=== PATIENT | female | born 1940 | race Caucasian/White ===

== ENCOUNTER → 2020-09-09 | Outpatient (CLI) | payer MEDICARE ==
--- NOTE | 2020-09-10 08:15 | NM ---
EXAMINATION TYPE: NM DatScan Brain SPECT DATE OF EXAM: 09/09/2020 COMPARISON: NONE HISTORY: Tremors TECHNIQUE: 10 drops of Lugol's solution was administered 1 hour prior to injection as a thyroid bloc briana agent. After the administration of 4.65 mCi I-123 Ioflupane DaTscan. Images obtained 3.5 hours post injection. SPECT images of the brain were acquired with axial and coronal reconstructions. FINDINGS: The axial SPECT images demonstrate normal background activity. Accounting for head tilt, t here appears to be slight asymmetrically blunted comma-shaped appearance of the left corpus striatum. IMPRESSION: Slightly blunted striatal activity on the left may indicate early changes of idiopathic P arkinson's disease or Parkinsonian syndrome.
== END | disposition home or self-care (01) ==
LOC: RADNMMAIN 11:00
PROVIDERS: ATTEND Psychiatry & Neurology Neurology
DX: R25.1 Tremor, unspecified (principal)
CPT/HCPCS: 78803; A9584

== ENCOUNTER 2021-02-03 15:06 | Inpatient (IN) | payer MEDICARE ==
[2021-02-03] MEDS ORDERED: SODIUM CHLORIDE 0.9% 500 ML 500 ML IV STA ×2 (15:48→16:45)
[2021-02-03] MEDS ORDERED: KETOROLAC 15 MG/ML 1 ML VIAL IVP STA (15:48)
--- NOTE | 2021-02-03 16:05 | ED ---
Dizziness HPI <Sg Núñez - Last Filed: 02/03/21 17:09> - General Source: patient, EMS Mode of arrival: EMS Limitations: no limitations <Giovanna Shetty - Last Filed: 02/03/21 18:05> - General Chief Complaint: Dizziness Stated Complaint: dizziness Time Seen by Provider: 02/03/21 15:31 - History of Present Illness Initial Comments: Patient is an 80-year-old female with history of early stage Parkinson's, hard of hearing, hypertension, diabetes, presenting to the emergency Department with complaints of dizziness for the past 4 days. She states she's been having these "episodes" that had caused her to fall 4 days ago as well. Patient's brother is here with her now and is helping with history. Brother state that they took her out for lunch and she was trying to get out of the bench and he feels like she did not get her foot out fast enough and she fell backwards, mostly onto her bottom. She did not hit her head or her neck. She denies any pain from that fall. She has been having a headache over the past 3-4 days as well. She has history of right carotid stent. She denies any chest pain or shortness of breath, no abdominal pain, no nausea or vomiting. She denies any dysuria. She states she does feel a little bit nasal congested but feels like she always feels that way. She denies any cough or fevers. She has no further complaints at this time. Upon arrival to the ER, her vitals are stable. (Giovanna Shetty) - Related Data Home Medications Medication Instructions Recorded Confirmed Acetaminophen [Tylenol Extra 1,000 mg PO Q6H PRN 02/03/21 02/03/21 Strength] Aspirin EC [Ecotrin Low Dose] 81 mg PO DAILY 02/03/21 02/03/21 Bismuth Subsalicylate 524 mg PO Q30M PRN MDD 8 DOSES/24 02/03/21 02/03/21 [Pepto-Bismol] HOURS Indapamide 2.5 mg PO DAILY 02/03/21 02/03/21 Metoprolol Succinate [Toprol XL] 100 mg PO DAILY 02/03/21 02/03/21 OLANZapine [ZyPREXA] 20 mg PO HS 02/03/21 02/03/21 Simvastatin [Zocor] 20 mg PO HS 02/03/21 02/03/21 hydrALAZINE HCL [Apresoline] 10 mg PO QID 02/03/21 02/03/21 lisinopriL 40 mg PO BID 02/03/21 02/03/21 metFORMIN HCL ER [Glucophage XR] 500 mg PO BID 02/03/21 02/03/21 rOPINIRole HCL [Requip] 0.5 mg PO TID@0900,1500,2100 02/03/21 02/03/21 Allergies Allergy/AdvReac Type Severity Reaction Status Date / Time TROY Inhibitors Allergy Unknown Verified 02/03/21 17:02 codeine Allergy Unknown Verified 02/03/21 17:02 NSAIDS (Non-Steroidal Allergy Unknown Verified 02/03/21 17:02 Anti-Inflamma sertraline [From Zoloft] Allergy Unknown Verified 02/03/21 17:02 Sulfa (Sulfonamide Allergy Unknown Verified 02/03/21 17:02 Antibiotics) trazodone Allergy Unknown Verified 02/03/21 17:02 Review of Systems ROS Other: All systems not noted in ROS Statement are negative. <Sg Núeñz - Last Filed: 02/03/21 17:09> ROS Other: All systems not noted in ROS Statement are negative. <Giovanna Shetty - Last Filed: 02/03/21 18:05> ROS Statement: Those systems with pertinent positive or pertinent negative responses have been documented in the HPI. Past Medical History Past Medical History: Asthma, Diabetes Mellitus, Hyperlipidemia, Hypertension History of Any Multi-Drug Resistant Organisms: None Reported Past Surgical History: Heart Catheterization With Stent Smoking Status: Never smoker Past Alcohol Use History: None Reported Past Drug Use History: None Reported <Giovanna Shetty - Last Filed: 02/03/21 18:05> General Exam Limitations: no limitations <Giovanna Shetty - Last Filed: 02/03/21 18:05> - General Exam Comments Initial Comments: GENERAL: Patient is well-developed and well-nourished. Patient is nontoxic and in no acute distress, very hard of hearing. HEAD: Atraumatic, normocephalic. EYES: Pupils equal round and reactive to light, extraocular movements intact, sclera anicteric, conjunctiva are normal. Eyelids were unremarkable. ENT: TMs normal, nares patent, oropharynx clear without exudates. Moist mucous membranes. NECK: Normal range of motion, supple without lymphadenopathy or JVD. LUNGS: Unlabored respirations. Breath sounds clear to auscultation bilaterally and equal. No wheezes rales or rhonchi. HEART: Regular rate and rhythm without murmurs, rubs or gallops. ABDOMEN: Soft, nontender, normoactive bowel sounds. No guarding, no rebound. No masses appreciated. : Deferred MUSCULOSKELETAL: Normal extremities with adequate strength and normal range of motion, no pitting or edema. No clubbing or cyanosis. NEUROLOGICAL: Patient is alert and oriented x 3. Motor and sensory are also intact. Cranial nerves II through XII grossly intact. Symmetrical smile. Normal speech. PSYCH: Normal mood, normal affect. SKIN: Warm, Dry, normal turgor, no rashes or lesions noted. (Giovanna Shetty) Course <Sg Núñez - Last Filed: 02/03/21 17:09> Vital Signs 02/03/21 02/03/21 02/03/21 15:08 16:34 17:31 Temperature 97.8 F Pulse Rate 61 61 Pulse Rate [ 67 Geometry Tutor ] Respiratory 18 18 16 Rate Blood Pressure 138/103 171/89 Blood Pressure 172/74 [Right Arm] O2 Sat by Pulse 98 98 98 Oximetry - Reevaluation(s) Reevaluation #1: 02/03/21 17:09 PA supervision: Patient did demonstrate dizziness and presented with the same complaint. She was found to have hyponatremia. Patient be admitted I do agree with the assessment and plan. (Sg Núñez) EKG Findings - EKG Comments: EKG Findings:: Sinus rhythm with first-degree AV block, otherwise normal ECG, no signs of acute process. Ventricular rate 65, WV interval 246, QTC 460. <Giovanna Shetty - Last Filed: 02/03/21 18:05> Medical Decision Making - Lab Data Result diagrams: 02/03/21 16:15 02/03/21 16:15 <Sg Núñez - Last Filed: 02/03/21 17:09> - Lab Data Result diagrams: 02/03/21 16:15 02/03/21 16:15 <Giovanna Shetty - Last Filed: 02/03/21 18:05> - Medical Decision Making Patient is an 80-year-old female with history of Parkinson's, presenting with intermittent dizziness over the past 4 days. She did have a fall 4 days ago as well but did not hit her head. Her exam today as revealing no acute neuro deficits. Her vitals are stable.Patient's CT of the brain showed no acute process, sodium was low at 111, lactic acid is 2.8 troponin was normal. Magnesium is also low at 1.0. Rapid Covid is negative. Patient will be admitted for hyponatremia, ICU admit. Hypertonic saline, magnesium was ordered. Patient accepted by Dr. Gonzalez and spoke with Dr. Llamas. Case discussed with Dr. Núñez. (Giovanna Shetty) - Lab Data Lab Results 02/03/21 02/03/21 02/03/21 Range/Units 16:15 16:15 16:15 WBC 11.2 H (3.8-10.6) k/uL RBC 3.90 (3.80-5.40) m/uL Hgb 11.8 (11.4-16.0) gm/dL Hct 33.6 L (34.0-46.0) % MCV 86.2 (80.0-100.0) fL MCH 30.2 (25.0-35.0) pg MCHC 35.1 (31.0-37.0) g/dL RDW 11.8 (11.5-15.5) % Plt Count 314 (150-450) k/uL MPV 7.2 Neutrophils % 79 % Lymphocytes % 11 % Monocytes % 7 % Eosinophils % 1 % Basophils % 0 % Neutrophils # 8.9 H (1.3-7.7) k/uL Lymphocytes # 1.3 (1.0-4.8) k/uL Monocytes # 0.8 (0-1.0) k/uL Eosinophils # 0.1 (0-0.7) k/uL Basophils # 0.0 (0-0.2) k/uL PT (9.0-12.0) sec INR (<1.2) APTT (22.0-30.0) sec Sodium 111 L* (137-145) mmol/L Potassium 4.7 (3.5-5.1) mmol/L Chloride 77 L (98-107) mmol/L Carbon Dioxide 20 L (22-30) mmol/L Anion Gap 14 mmol/L BUN 16 (7-17) mg/dL Creatinine 0.72 (0.52-1.04) mg/dL Est GFR (CKD-EPI)AfAm >90 (>60 ml/min/1.73 sqM) Est GFR (CKD-EPI)NonAf 80 (>60 ml/min/1.73 sqM) Glucose 125 H (74-99) mg/dL Plasma Lactic Acid Yong 2.8 H* (0.7-2.0) mmol/L Calcium 9.0 (8.4-10.2) mg/dL Magnesium 1.0 L (1.6-2.3) mg/dL Total Bilirubin 0.5 (0.2-1.3) mg/dL AST 32 (14-36) U/L ALT 17 (4-34) U/L Alkaline Phosphatase 71 (38-126) U/L Troponin I (0.000-0.034) ng/mL Total Protein 6.9 (6.3-8.2) g/dL Albumin 4.3 (3.5-5.0) g/dL Coronavirus (PCR) (Not Detectd) 02/03/21 02/03/21 02/03/21 Range/Units 16:15 16:15 16:47 WBC (3.8-10.6) k/uL RBC (3.80-5.40) m/uL Hgb (11.4-16.0) gm/dL Hct (34.0-46.0) % MCV (80.0-100.0) fL MCH (25.0-35.0) pg MCHC (31.0-37.0) g/dL RDW (11.5-15.5) % Plt Count (150-450) k/uL MPV Neutrophils % % Lymphocytes % % Monocytes % % Eosinophils % % Basophils % % Neutrophils # (1.3-7.7) k/uL Lymphocytes # (1.0-4.8) k/uL Monocytes # (0-1.0) k/uL Eosinophils # (0-0.7) k/uL Basophils # (0-0.2) k/uL PT 10.0 (9.0-12.0) sec INR 0.9 (<1.2) APTT 28.4 (22.0-30.0) sec Sodium (137-145) mmol/L Potassium (3.5-5.1) mmol/L Chloride (98-107) mmol/L Carbon Dioxide (22-30) mmol/L Anion Gap mmol/L BUN (7-17) mg/dL Creatinine (0.52-1.04) mg/dL Est GFR (CKD-EPI)AfAm (>60 ml/min/1.73 sqM) Est GFR (CKD-EPI)NonAf (>60 ml/min/1.73 sqM) Glucose (74-99) mg/dL Plasma Lactic Acid Yong (0.7-2.0) mmol/L Calcium (8.4-10.2) mg/dL Magnesium (1.6-2.3) mg/dL Total Bilirubin (0.2-1.3) mg/dL AST (14-36) U/L ALT (4-34) U/L Alkaline Phosphatase (38-126) U/L Troponin I <0.012 (0.000-0.034) ng/mL Total Protein (6.3-8.2) g/dL Albumin (3.5-5.0) g/dL Coronavirus (PCR) Not Detected (Not Detectd) Critical Care Time Critical Care Time: Yes Total Critical Care Time: 37 (Patient presented to ER with dizziness on and off for the last 4 days. Sodium was found to be low at 111, magnesium was 1.0. Patient admitted to the ICU for hyponatremia.) <Giovanna Shetty - Last Filed: 02/03/21 18:05> Disposition <Sg Núñez - Last Filed: 02/03/21 17:09> Decision Date: 02/03/21 Decision Time: 17:30 <Giovanna Shetty - Last Filed: 02/03/21 18:05> Clinical Impression: Hyponatremia, Lactic acidosis, Hypomagnesemia Disposition: ADMITTED IP TO THIS HOSP Condition: Fair Referrals: Fausto Turner MD [Primary Care Provider] - 1-2 days
[2021-02-03 16:26] LABS: Basophils % (A) 0 %; Eosinophils # (A) 0.1 k/uL (0-0.7); Eosinophils % (A) 1 %; HCT 33.6 % (34.0-46.0); HGB 11.8 gm/dL (11.4-16.0); Lymphocytes # (A) 1.3 k/uL (1.0-4.8); Lymphocytes % (A) 11 %; MCH 30.2 pg (25.0-35.0); MCHC 35.1 g/dL (31.0-37.0); MCV 86.2 fL (80.0-100.0); Mean Platelet Volume 7.2; Monocytes # (A) 0.8 k/uL (0-1.0); Monocytes % (A) 7 %; Neutrophils # (A) 8.9 k/uL (1.3-7.7); Neutrophils % (A) 79 %; Platelet Count 314 k/uL (150-450); RDW 11.8 % (11.5-15.5); WBC 11.2 k/uL (3.8-10.6)
[2021-02-03 16:36] LABS: ALT 17 U/L (4-34); AST 32 U/L (14-36); African American GFR (CKD) >90 (>60 ml/min/1.73 sqM); Albumin 4.3 g/dL (3.5-5.0); Alkaline Phosphatase 71 U/L (38-126); Anion Gap 14 mmol/L; Blood Urea Nitrogen 16 mg/dL (7-17); Carbon Dioxide 20 mmol/L (22-30); Chloride 77 mmol/L (98-107); Glucose 125 mg/dL (74-99); INR 0.9 (<1.2); Non-African American GFR(CKD) 80 (>60 ml/min/1.73 sqM); Partial Thromboplastin Time 28.4 sec (22.0-30.0); Potassium 4.7 mmol/L (3.5-5.1); Total Bilirubin 0.5 mg/dL (0.2-1.3); Total Protein 6.9 g/dL (6.3-8.2)
[2021-02-03 16:41] LABS: Sodium 111 mmol/L (137-145)
--- NOTE | 2021-02-03 16:50 | CT ---
EXAMINATION TYPE: CT brain wo con DATE OF EXAM: 02/03/2021 HISTORY: Dizziness and fall today. CT DLP: 1099.4 mGycm. Automated Exposure Control for Dose Reduction was Utilized. TECHNIQUE: CT scan of the head is performed without contrast. COMPARISON: None. FINDINGS: There is no acute intracranial hemorrhage or midline shift identified. There is moderate diffuse ventricular and sulcal prominence consistent with diffuse age-related cerebral atrophy. Ther e is mild to moderate low-attenuation in the periventricular white matter consistent with chronic sma ll vessel ischemic change. Scleral calcification bilateral globes. Prior paranasal sinus surgery with recurrent dependent fluid left sphenoid sinus. IMPRESSION: No acute intracranial hemorrhage or midline shift. There is moderate diffuse cerebral a trophy and mild to moderate chronic small vessel ischemic change noted. Return acute left sphenoid s inus disease noted.
[2021-02-03] MEDS ORDERED: NALOXONE 0.4 MG/ML 1 ML VIAL IV PRN (17:26)
[2021-02-03] MEDS ORDERED: SODIUM CHLORIDE 3%(HYPERTONIC) 500 ML IV SCH ×2 (17:30→23:15)
[2021-02-03] MEDS ORDERED: NA PHOS,M-B/NA PHOS,DI-BA 133 ML ENEMA RECTAL PRN (17:46)
[2021-02-03] MEDS ORDERED: ONDANSETRON 4 MG/2 ML VIAL IVP PRN (17:46)
[2021-02-03] MEDS ORDERED: MELATONIN 3 MG TABLET PO PRN (17:46)
[2021-02-03] MEDS ORDERED: LACTULOSE 20 GM/30 ML CUP PO PRN (17:46)
[2021-02-03] MEDS ORDERED: CALCIUM CARBONATE 500 MG CHEWABLE PO PRN (17:46)
[2021-02-03] MEDS ORDERED: SODIUM CHLORIDE 0.9% 1,000 ML IV SCH (18:00)
--- NOTE | 2021-02-03 18:00 | P.HPIM ---
History of Present Illness H&P Date: 02/03/21 Chief Complaint: Dizziness History of presenting complaint: This is a 80-year-old patient who follows with visiting physicians Dr. Turner. Most of the history is obtained by the brother Andres was also the POA. Patient lives at [facility] at the [facility]. Is able to answer simple questions. Chronic stable medical conditions include asthma, diabetes, hypertension, hyperlipidemia, Parkinson's disease, with delusions and memory impairment. She has been advised to take her get a walker. Patient presents to be increasingly unsteady dizziness. Patient's fallen twice in the last 5 days. Has not passed out. No chest pain or palpitation. Patient was found to have a sodium of 111 in the ER. She denies drinking excessive water. Her appetite has not been good. She did have diarrhea in the last for 5 days. Review of systems: GEN.: Tired EYES: None HEENT: None NECK: None RESPIRATORY: None CARDIOVASCULAR: None GASTROINTESTINAL: No abdominal pain GENITOURINARY: Urinary incontinence MUSCULOSKELETAL: Arthritis LYMPHATICS: None HEMATOLOGICAL: None PSYCHIATRY: Forgetful NEUROLOGICAL: Unsteady on her feet, tremors Past medical history to include: Asthma, diabetes, hyperlipidemia, hypertension, cognitive impairment, Parkinson's, gait dysfunction, CAD with stent, urinary incontinence Social history: Lives at [facility] in the [facility]. Patient's brother Andres is the POA. No smoking or alcohol. Has home help Physical examination: VITAL SIGNS: 97.8, 61, 138/103, 98% room air GENERAL: BMI 26.3, laying in bed, slightly anxious. EYES: Pupils equal. Conjunctiva normal. HEENT: External appearance of nose and ears normal, oral cavity grossly normal. NECK: JVD not raised; masses not palpable. HEART: First and second heart sounds are normal; no edema. LUNGS: Respiratory rate normal; clear to auscultation. ABDOMEN: Soft, nontender, liver spleen not palpable, no masses palpable. MUSCULAR skeletal: Evidence of OA especially in the hands PSYCH: Alert and oriented x3; mood and affect normal. NEUROLOGICAL: [Cranial nerves grossly intact; no facial asymmetry, power and sensation grossly intact, tremors present LYMPHATICS: No lymph nodes palpable in the axilla and neck INVESTIGATIONS, reviewed in the clinical context: White count 11.2 hemoglobin 11.8 platelets 314 sodium 111 potassium 4.7 bicarb 20 BUN 16 creatinine 0.7 to lactic acid 2.8 Troponin I less than 0.012 Coronavirus [PCR]: Not detected EKG tracing personally reviewed by me-normal sinus rhythm Computed tomography scan of the brain: Moderate diffuse cerebral atrophy. Chronic small vessel changes. Assessment and plan: -Severe symptomatic hyponatremia Patient has been having diarrhea for last 5 days. Also patient been taking a diuretic likely the cause of low-sodium. We'll check patient's serum osmolality, urine sodium and urine osmolality. Patient will need to and admitted to ICU with hypertonic saline. 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 Consultation to supply planner to nephrology. Hypertonic saline. Resume home medications. Hold off indapamide. Follow Accu- Cheks. Care was discussed with the patient and the brother the bedside. Questions answered. Given the complexity and severity of patient's condition expect the patient to be in the hospital at least for 2 overnights Past Medical History Past Medical History: Asthma, Diabetes Mellitus, Hyperlipidemia, Hypertension History of Any Multi-Drug Resistant Organisms: None Reported Past Surgical History: Heart Catheterization With Stent Smoking Status: Never smoker Past Alcohol Use History: None Reported Past Drug Use History: None Reported Medications and Allergies Home Medications Medication Instructions Recorded Confirmed Type Acetaminophen [Tylenol Extra 1,000 mg PO Q6H PRN 02/03/21 02/03/21 History Strength] Aspirin EC [Ecotrin Low Dose] 81 mg PO DAILY 02/03/21 02/03/21 History Bismuth Subsalicylate 524 mg PO Q30M PRN MDD 8 DOSES/24 02/03/21 02/03/21 History [Pepto-Bismol] HOURS Indapamide 2.5 mg PO DAILY 02/03/21 02/03/21 History Metoprolol Succinate [Toprol XL] 100 mg PO DAILY 02/03/21 02/03/21 History OLANZapine [ZyPREXA] 20 mg PO HS 02/03/21 02/03/21 History Simvastatin [Zocor] 20 mg PO HS 02/03/21 02/03/21 History hydrALAZINE HCL [Apresoline] 10 mg PO QID 02/03/21 02/03/21 History lisinopriL 40 mg PO BID 02/03/21 02/03/21 History metFORMIN HCL ER [Glucophage XR] 500 mg PO BID 02/03/21 02/03/21 History rOPINIRole HCL [Requip] 0.5 mg PO TID@0900,1500,2100 02/03/21 02/03/21 History Allergies Allergy/AdvReac Type Severity Reaction Status Date / Time TROY Inhibitors Allergy Unknown Verified 02/03/21 17:02 codeine Allergy Unknown Verified 02/03/21 17:02 NSAIDS (Non-Steroidal Allergy Unknown Verified 02/03/21 17:02 Anti-Inflamma sertraline [From Zoloft] Allergy Unknown Verified 02/03/21 17:02 Sulfa (Sulfonamide Allergy Unknown Verified 02/03/21 17:02 Antibiotics) trazodone Allergy Unknown Verified 02/03/21 17:02 Physical Exam Vitals: Vital Signs Temp Pulse Pulse Resp BP BP Pulse Ox 02/03/21 17:31 67 16 172/74 98 02/03/21 16:34 61 18 171/89 98 02/03/21 15:08 97.8 F 61 18 138/103 98 Intake and Output 02/03/21 02/03/21 02/03/21 06:59 14:59 22:59 Other: Weight 63.049 kg Results CBC & Chem 7: 02/03/21 16:15 02/03/21 16:15 Labs: Abnormal Lab Results - Last 24 Hours (Table) 02/03/21 02/03/21 02/03/21 Range/Units 16:15 16:15 16:15 WBC 11.2 H (3.8-10.6) k/uL Hct 33.6 L (34.0-46.0) % Neutrophils # 8.9 H (1.3-7.7) k/uL Sodium 111 L* (137-145) mmol/L Chloride 77 L (98-107) mmol/L Carbon Dioxide 20 L (22-30) mmol/L Glucose 125 H (74-99) mg/dL Plasma Lactic Acid Yong 2.8 H* (0.7-2.0) mmol/L Magnesium 1.0 L (1.6-2.3) mg/dL
[2021-02-03 18:37] LABS: Appearance,Urine Cloudy (Clear); Bacteria,Urine Rare /hpf; Bilirubin,Urine Negative (Negative); Blood,Urine Negative (Negative); Color,Urine Light Yellow; Glucose,Urine (UA) Negative (Negative); Ketones,Urine Negative (Negative); Leukocyte Esterase,Urine Large (Negative); Mucus,Urine Rare /hpf; Nitrite,Urine Negative (Negative); PH, Urine 5.5 (5.0-8.0); Protein,Urine Negative (Negative); RBC,Urine 16 /hpf (0-5); Specific Gravity,Urine 1.007 (1.001-1.035); Squamous Epithelial Cell,Urine 1 /hpf (0-4); Urobilinogen,Urine <2.0 mg/dL (<2.0); WBC,Urine 24 /hpf (0-5)
[2021-02-03] MEDS: hydrALAZINE HCL 10 MG TAB PO SCH ×2 (18:41→23:16)
[2021-02-03] MEDS: ENOXAPARIN 40 MG/0.4 ML SYRINGE SQ SCH (18:42)
[2021-02-03] MEDS: MAGNESIUM SULFATE-D5W PMX 1 GM in DEXTROSE/WATER 1 100ML.BAG IVPB SCH ×2 (18:43→20:51)
[2021-02-03 19:06] LABS: Glucose,Whole Blood 113 mg/dL (75-99)
[2021-02-03] MEDS: INSULIN ASPART (NovoLOG) 100 UNIT/ML VIAL SQ SCH (20:56)
[2021-02-03 20:57] LABS: Glucose,Whole Blood 108 mg/dL (75-99)
[2021-02-03] MEDS: ATORVASTATIN 10 MG TAB PO SCH (21:19)
[2021-02-03] MEDS: lisinopriL 20 MG TAB PO SCH (21:20)
[2021-02-03] MEDS: metFORMIN 500 MG TAB PO SCH (21:20)
[2021-02-03] MEDS: OLANZapine 10 MG TAB PO SCH (21:20)
--- NOTE | 2021-02-03 22:18 | XR ---
EXAMINATION TYPE: XR chest 2V DATE OF EXAM: 02/03/2021 COMPARISON: NONE HISTORY: Dizziness TECHNIQUE: 2 views FINDINGS: There is large hiatal hernia. There is no heart failure nor confluent pneumonic infiltrate. Costophrenic angles are clear. There are chest leads. Thoracic aorta is atheromatous. IMPRESSION: Hiatal hernia. No acute lung disease. No heart failure.
[2021-02-04 04:37] LABS: African American GFR (CKD) >90 (>60 ml/min/1.73 sqM); Anion Gap 8 mmol/L; Blood Urea Nitrogen 14 mg/dL (7-17); Calcium 8.4 mg/dL (8.4-10.2); Carbon Dioxide 21 mmol/L (22-30); Chloride 85 mmol/L (98-107); Glucose 94 mg/dL (74-99); Magnesium 1.9 mg/dL (1.6-2.3); Non-African American GFR(CKD) 86 (>60 ml/min/1.73 sqM); Potassium 3.6 mmol/L (3.5-5.1); Sodium 114 mmol/L (137-145)
[2021-02-04] MEDS: INSULIN ASPART (NovoLOG) 100 UNIT/ML VIAL SQ SCH ×4 (06:19→20:07)
[2021-02-04 06:21] LABS: Glucose,Whole Blood 100 mg/dL (75-99)
[2021-02-04] MEDS: ACETAMINOPHEN TAB 325 MG TAB PO PRN ×2 (06:21→20:06)
[2021-02-04] MEDS: hydrALAZINE HCL 10 MG TAB PO SCH ×2 (06:21→13:19)
[2021-02-04] MEDS ORDERED: Potassium Replacement Protocol 1 EACH MISC MISCELLANE PRN (07:57)
[2021-02-04] MEDS ORDERED: Magnesium Replacement Protocol 1 EACH MISC MISCELLANE PRN (07:58)
[2021-02-04] MEDS ORDERED: POTASSIUM CHLORIDE ER 20 MEQ TAB.ER PO SCH (08:00)
[2021-02-04] MEDS: MAGNESIUM SULFATE-D5W PMX 1 GM in DEXTROSE/WATER 1 100ML.BAG IVPB SCH ×2 (08:23→10:06)
[2021-02-04] MEDS: metFORMIN 500 MG TAB PO SCH ×2 (08:38→20:05)
[2021-02-04] MEDS: ASPIRIN 81 MG PO SCH (08:38)
[2021-02-04] MEDS: lisinopriL 20 MG TAB PO SCH ×2 (08:38→20:05)
[2021-02-04] MEDS: METOPROLOL SUCCINATE (ER) 100 MG TAB.ER.24H PO SCH (08:39)
[2021-02-04 09:13] LABS: Basophils % (A) 0 %; Eosinophils # (A) 0.2 k/uL (0-0.7); Eosinophils % (A) 3 %; HCT 33.3 % (34.0-46.0); HGB 12.3 gm/dL (11.4-16.0); Hyperchromasia Slight; Lymphocytes # (A) 0.9 k/uL (1.0-4.8); Lymphocytes % (A) 15 %; MCH 31.2 pg (25.0-35.0); MCV 84.3 fL (80.0-100.0); Mean Platelet Volume 7.1; Monocytes # (A) 0.6 k/uL (0-1.0); Monocytes % (A) 11 %; Neutrophils # (A) 4.1 k/uL (1.3-7.7); Neutrophils % (A) 68 %; Platelet Count 300 k/uL (150-450); RBC 3.95 m/uL (3.80-5.40); RDW 12.6 % (11.5-15.5)
[2021-02-04 11:41] LABS: Glucose,Whole Blood 147 mg/dL (75-99)
[2021-02-04 12:24] LABS: Glucose,Whole Blood 166 mg/dL (75-99)
--- NOTE | 2021-02-04 12:42 | CONS ---
CONSULTATION REASON FOR CONSULT: Hyponatremia. HISTORY OF PRESENT ILLNESS: The patient is an 80-year-old female who was admitted to the hospital with history of dizziness. She usually follows with visiting physician. She lives at [facility] and she states that she was transferred to the hospital as she did have a history of falls as well. In the ER, patient was noted to have a sodium of 111. Her blood pressure has not been low. The patient was given a fluid bolus of saline and her sodium improved to 115 and therefore the 3% saline was not started. Eventually the sodium dropped down to 110 and at that time 3% saline was started and currently her sodium is up to 119. Off note is that sodium had improved to 115 after initial admission. Therefore, it is a total increase of about 5 point over the last 12 hours. The patient denies any nausea, vomiting or diarrhea. Prior to admission it appears that she may not have been eating well. Medications prior to admission did include thiazide diuretic in the form of indapamide. No significant pain noted at this time. PAST MEDICAL HISTORY: Diabetes, hypertension, hyperlipidemia, Parkinson disease, asthma, coronary artery disease, coronary stent placement, urinary incontinence. PAST SURGICAL HISTORY: Cardiac catheterization, coronary stent placement. SOCIAL HISTORY: Negative for smoking, drug abuse or alcohol abuse. MEDICATIONS: Medications prior to admission included Tylenol, aspirin, ( ), indapamide, Zyprexa, Zocor, hydralazine, metformin, lisinopril, Requip. ALLERGIES: INCLUDE TROY INHIBITORS, NSAIDS, ZOLOFT, SULFA, TRAZODONE. EXAMINATION: Patient is comfortable, awake, not in any acute distress. Blood pressure was 163/75, heart rate 67 per minute, she is afebrile. Examination of the heart S1, S2. Examination of the lungs, bilateral breath sounds are heard. Decreased breath sounds at bases. Abdomen soft, nontender. Exam of lower extremities shows no evidence of edema. SYSTEMS SPECIALIST exam grossly intact. LAB: Show sodium of 119, potassium earlier was 3.6, serum creatinine 0.6, hemoglobin 12.3 g/dL. ASSESSMENT: 1. Hyponatremia, currently euvolemic with a urine osmolality at 231 which is on the lower side. This is most likely associated with decreased oral intake and decreased urinary osmoles. I will discontinue the 3% and we will check another sodium level in four hours. The patient is encouraged to increase her oral intake. Her blood pressure is on the higher side. I will hold off on sodium chloride tabs for now unless the sodium starts to drop again. The patient was also on indapamide which is a thiazide diuretics and I will hold off on that for now. 2. Dizziness most likely associated with the hyponatremia. 3. Type 2 diabetes. 4. Hypertension, blood pressure is on the high side. Continue with the TROY inhibitors and the metoprolol. PLAN: Discontinue 3% saline. Increase protein intake. Maintain some degree of free water restriction. Repeat sodium in 4 hours. Thank you for this consultation. Will continue to follow the patient with you during her hospitalization. MMODL / IJN: [id number] /
[2021-02-04] MEDS ORDERED: SODIUM CHLORIDE TAB 1 GM TAB PO STA (13:56)
--- NOTE | 2021-02-04 14:24 | P.PN ---
Progress Note - Text Progress Note Date: 02/04/21 Chief Complaint: Dizziness History of presenting complaint: This is a 80-year-old patient who follows with visiting physicians Dr. Turner. Most of the history is obtained by the brother Andres was also the POA. Patient lives at [facility] at the [facility]. Is able to answer simple questions. Chronic stable medical conditions include asthma, diabetes, hypertension, hyperlipidemia, Parkinson's disease, with delusions and memory impairment. She has been advised to take her get a walker. Patient presents to be increasingly unsteady dizziness. Patient's fallen twice in the last 5 days. Has not passed out. No chest pain or palpitation. Patient was found to have a sodium of 111 in the ER. She denies drinking excessive water. Her appetite has not been good. She did have diarrhea in the last for 5 days. Admitted with severe hyponatremia. Put in the ICU. Started on hypertonic saline. February 04: ICU: A bit dizzy and tired. Receiving hypertonic saline at 30 mL an hour. No more diarrhea. Eating some. Review of systems: Was done for constitutional, cardiovascular, GI, pulmonary. relevant finding as above Active Medications Acetaminophen (Acetaminophen Tab 325 Mg Tab) 650 mg PO Q4HR PRN PRN Reason: Fever and/or Mild Pain Last Admin: 02/04/21 06:21 Dose: 650 mg Documented by: Alprazolam (Alprazolam 0.25 Mg Tab) 0.25 mg PO Q6HR PRN PRN Reason: Anxiety Aspirin (Aspirin 81 Mg) 81 mg PO DAILY [facility] Last Admin: 02/04/21 08:38 Dose: 81 mg Documented by: Atorvastatin Calcium (Atorvastatin 10 Mg Tab) 10 mg PO [facility] Last Admin: 02/03/21 21:19 Dose: 10 mg Documented by: Calcium Carbonate/Glycine (Calcium Carbonate 500 Mg Chewable) 1,000 mg PO Q4HR PRN PRN Reason: Dyspepsia Enoxaparin Sodium (Enoxaparin 40 Mg/0.4 Ml Syringe) 40 mg SQ [facility] Last Admin: 02/03/21 18:42 Dose: 40 mg Documented by: Hydralazine HCl (Hydralazine Hcl 10 Mg Tab) 10 mg PO Q6HR [facility] Last Admin: 02/04/21 13:19 Dose: 10 mg Documented by: Insulin Aspart (Insulin Aspart (Novolog) 100 Unit/Ml Vial) 0 unit SQ ACHS [facility]; Protocol Last Admin: 02/04/21 11:53 Dose: 1 unit Documented by: Lactulose (Lactulose 20 Gm/30 Ml Cup) 20 gm PO DAILY PRN PRN Reason: Constipation Lisinopril (Lisinopril 20 Mg Tab) 40 mg PO BID [facility] Last Admin: 02/04/21 08:38 Dose: 40 mg Documented by: Melatonin (Melatonin 3 Mg Tablet) 3 mg PO HS PRN PRN Reason: Insomnia Metformin HCl (Metformin 500 Mg Tab) 500 mg PO BID [facility] Last Admin: 02/04/21 08:38 Dose: 500 mg Documented by: Metoprolol Succinate (Metoprolol Succinate (Er) 100 Mg Tab.Er.24h) 100 mg PO DAILY [facility] Last Admin: 02/04/21 08:39 Dose: 100 mg Documented by: Miscellaneous Information (Potassium Replacement Protocol 1 Each Misc) 1 each MISCELLANE DAILY PRN; Protocol PRN Reason: Per Protocol Miscellaneous Information (Magnesium Replacement Protocol 1 Each Misc) 1 each MISCELLANE DAILY PRN; Protocol PRN Reason: Per Protocol Naloxone HCl (Naloxone 0.4 Mg/Ml 1 Ml Vial) 0.2 mg IV Q2M PRN PRN Reason: Opioid Reversal Olanzapine (Olanzapine 10 Mg Tab) 20 mg PO HS [facility] Last Admin: 02/03/21 21:20 Dose: 20 mg Documented by: Ondansetron HCl (Ondansetron 4 Mg/2 Ml Vial) 4 mg IVP Q8HR PRN PRN Reason: Nausea And Vomiting Ropinirole HCl (Ropinirole Hcl 0.25 Mg Tab) 0.5 mg PO TID@0900,1500,2100 [facility] Last Admin: 02/04/21 08:39 Dose: 0.5 mg Documented by: Sodium Biphosphate/Sodium Phosphate (Na Phos,M-B/Na Phos,Di-Ba 133 Ml Enema) 133 ml RECTAL ONCE PRN PRN Reason: Constipation Past medical history to include: Asthma, diabetes, hyperlipidemia, hypertension, cognitive impairment, Parkinson's, gait dysfunction, CAD with stent, urinary incontinence Social history: Lives at [facility] in the memory care center. Patient's brother Andres is the POA. No smoking or alcohol. Has home help Physical examination: VITAL SIGNS: 97.2, 61, 15, 97.52, 97% room air GENERAL: Laying in bed, tired. EYES: Pupils equal. Conjunctiva normal. NECK: JVD not raised; masses not palpable. HEART: First and second heart sounds are normal; no edema. LUNGS: Respiratory rate normal; clear to auscultation. ABDOMEN: Soft, nontender, liver spleen not palpable, no masses palpable. MUSCULAR skeletal: Evidence of OA especially in the hands PSYCH: Alert and oriented x3; mood and affect normal. INVESTIGATIONS, reviewed in the clinical context: January 2013: White count 6 hemoglobin 12.3 platelets 300 sodium 116 White count 11.2 hemoglobin 11.8 platelets 314 sodium 111 potassium 4.7 bicarb 20 BUN 16 creatinine 0.7 to lactic acid 2.8 Troponin I less than 0.012 Coronavirus [PCR]: Not detected EKG tracing personally reviewed by me-normal sinus rhythm Computed tomography scan of the brain: Moderate diffuse cerebral atrophy. Chronic small vessel changes. Chest x-ray film personally reviewed by me-portable/possible hiatal hernia. Oriana vation of right diaphragm. Assessment and plan: -Severe symptomatic hyponatremia: Slow to respond Patient has been having diarrhea for last 5 days. Also patient been taking a diuretic likely the cause of low-sodium. We'll check patient's serum osmolality, urine sodium and urine osmolality. admitted to ICU with hypertonic saline. Had fluid restriction by mouth. -Essential hypertension, blood pressure running on the lower side today. Hydralazine -DC, Isordil 40 mg twice a day, Toprol-XL 100 mg daily, -Idiopathic Parkinson's disease Requip 0.5 mg by mouth 3 times a day -CAD with stent Zocor 20 mg daily at bedtime, Toprol-XL 100 mg by mouth daily -Diabetes mellitus type 2 on oral hypoglycemic Metformin 500 mg twice a day, follow Accu-Cheks -Moderate cognitive impairment from underlying Parkinson disease -Chronic gait dysfunction from underlying Parkinson disease Fall precautions -POA, Andres [brother] Hypertonic saline. Hold hydralazine. Discussed with the patient. Add oral fluid restriction.
--- NOTE | 2021-02-04 14:53 | P.CNPUL ---
History of Present Illness Consult date: 02/04/21 Requesting physician: Lang Gonzalez Reason for consult: other (Critical care management) Chief complaint: Weakness and falls History of present illness: This is a pleasant 80-year-old female patient with a known history of Parkinson's disease, hearing disorder, hypertension, diabetes mellitus, coronary artery disease with previous stent placement. She had recently had episodes of weakness, difficulty standing and falls. She was brought into the emergency room yesterday for the same. She was found to have significant hypo-natremia with a sodium of 114. White count 6.0. Hemoglobin 12.3. Glucose 147. She was placed on 3% normal saline currently at 30 MLS per hour. Nephrology is on the case. She is seen today in the intensive care unit. She is awake and alert. On room air oxygen. Sodium up to 116. She was on indapamide and Zyprexa in the outpatient setting which are currently on hold. Chest x-ray revealed no acute pulmonary process. Computed tomography scan of the brain field no acute intracranial hemorrhage or midline shift. There is noted moderate diffuse cerebral atrophy and mild to moderate chronic small vessel ischemic changes. Review of Systems REVIEW OF SYSTEMS: CONSTITUTIONAL: Positive for generalized weakness, falls. Denies any recent significant weight loss or weight gain. EYES: Denies change in vision. EARS, NOSE, MOUTH, THROAT: Denies headaches, denies sore throat. CARDIOVASCULAR: Denies chest pain, palpitations or syncopal episodes. RESPIRATORY: Denies shortness of breath, cough, congestion or hemoptysis. GASTROINTESTINAL: Denies change in appetite, denies abdominal pain GENITOURINARY: Denies hematuria, denies infections. MUSKULOSKELETAL: Denies pain, denies swelling. INTEGUMENTARY: Denies rash, denies eczema. NEUROLOGICAL: Positive for dizziness, lightheadedness. PSYCHIATRIC: Denies anxiety, denies depression. HEMATOLOGIC/LYMPHATIC: Denies anemia, denies enlarged lymph nodes. Past Medical History Past Medical History: Asthma, Diabetes Mellitus, Hyperlipidemia, Hypertension History of Any Multi-Drug Resistant Organisms: None Reported Past Surgical History: Heart Catheterization With Stent Past Anesthesia/Blood Transfusion Reactions: No Reported Reaction Date of Last Stent Placement:: Pt unsure Past Psychological History: No Psychological Hx Reported Smoking Status: Never smoker Past Alcohol Use History: None Reported Past Drug Use History: None Reported Medications and Allergies Home Medications Medication Instructions Recorded Confirmed Type Acetaminophen [Tylenol Extra 1,000 mg PO Q6H PRN 02/03/21 02/03/21 History Strength] Aspirin EC [Ecotrin Low Dose] 81 mg PO DAILY 02/03/21 02/03/21 History Bismuth Subsalicylate 524 mg PO Q30M PRN MDD 8 24 02/03/21 02/03/21 History [Pepto-Bismol] HOURS Indapamide 2.5 mg PO DAILY 02/03/21 02/03/21 History Metoprolol Succinate [Toprol XL] 100 mg PO DAILY 02/03/21 02/03/21 History OLANZapine [ZyPREXA] 20 mg PO HS 02/03/21 02/03/21 History Simvastatin [Zocor] 20 mg PO HS 02/03/21 02/03/21 History hydrALAZINE HCL [Apresoline] 10 mg PO QID 02/03/21 02/03/21 History lisinopriL 40 mg PO BID 02/03/21 02/03/21 History metFORMIN HCL ER [Glucophage XR] 500 mg PO BID 02/03/21 02/03/21 History rOPINIRole HCL [Requip] 0.5 mg PO TID@0900,1500,2100 02/03/21 02/03/21 History Allergies Allergy/AdvReac Type Severity Reaction Status Date / Time TROY Inhibitors Allergy Unknown Verified 02/03/21 17:02 codeine Allergy Unknown Verified 02/03/21 17:02 NSAIDS (Non-Steroidal Allergy Unknown Verified 02/03/21 17:02 Anti-Inflamma sertraline [From Zoloft] Allergy Unknown Verified 02/03/21 17:02 Sulfa (Sulfonamide Allergy Unknown Verified 02/03/21 17:02 Antibiotics) trazodone Allergy Unknown Verified 02/03/21 17:02 Physical Exam Vitals: Vital Signs Temp Pulse Pulse Resp BP BP Pulse Ox 02/04/21 14:00 61 12 106/52 99 02/04/21 13:00 61 16 104/52 98 02/04/21 12:00 97.2 F L 61 15 97/52 97 02/04/21 11:00 55 L 13 92/75 97 02/04/21 10:00 56 L 16 154/113 97 02/04/21 09:00 67 21 163/75 95 02/04/21 08:00 97.8 F 63 12 147/61 98 02/04/21 07:00 57 L 13 111/72 97 02/04/21 06:00 66 13 125/58 98 02/04/21 05:00 55 L 12 160/67 96 02/04/21 04:00 58 L 12 170/73 96 02/04/21 03:00 58 L 10 L 173/70 97 02/04/21 02:00 61 11 L 134/56 97 02/04/21 01:00 60 12 130/56 96 02/04/21 00:00 98.5 F 58 L 12 142/59 97 02/03/21 23:00 55 L 10 L 162/76 98 02/03/21 22:00 58 L 10 L 150/107 98 02/03/21 21:00 62 11 L 178/78 97 02/03/21 20:00 97.6 F 66 10 L 177/75 97 02/03/21 19:02 97.8 F 70 18 175/75 98 02/03/21 18:49 64 18 179/87 98 02/03/21 17:46 98 02/03/21 17:31 67 16 172/74 98 02/03/21 16:34 61 18 171/89 98 02/03/21 15:08 97.8 F 61 18 138/103 98 Intake and Output 02/03/21 02/04/21 02/04/21 22:59 06:59 14:59 Intake Total 720 240 350 Output Total 0 650 150 Balance 720 -410 200 Intake: IV 490 240 150 Magnesium Sulfate-D5w Pmx 100 1 gm In Dextrose/Water 1 100ml.bag @ 100 mls/hr IVPB Q1H [facility] Rx#: [id number] Sodium Chloride 0.9% 1, 390 000 ml @ 130 mls/hr IV . Q7H42M [facility] Rx#:[id number] Sodium Chloride 3%( 240 150 Hypertonic) 500 ml @ 20 mls/hr IV .Q24H [facility] Rx#: [id number] Intake, IV Titration 230 200 Amount Magnesium Sulfate-D5w Pmx 100 1 gm In Dextrose/Water 1 100ml.bag @ 100 mls/hr IVPB Q1H [facility] Rx#: [id number] Magnesium Sulfate-D5w Pmx 200 1 gm In Dextrose/Water 1 100ml.bag @ 100 mls/hr IVPB Q1H [facility] Rx#: [id number] Sodium Chloride 0.9% 1, 130 000 ml @ 130 mls/hr IV . Q7H42M [facility] Rx#:[id number] Output: Urine 0 650 150 Other: Voiding Method Bedpan Bedpan External Catheter External Catheter # Voids 1 Weight 63.049 kg 67.4 kg GENERAL EXAM: Alert, pleasant, hard of hearing 80-year-old female patient, on room air oxygen, comfortable in no apparent distress. HEAD: Normocephalic. EYES: Normal reaction of pupils, equal size. NOSE: Clear with pink turbinates. THROAT: No erythema or exudates. NECK: No masses, no JVD. CHEST: No chest wall deformity. LUNGS: Equal air entry with no crackles, wheeze, rhonchi or dullness. CVS: S1 and S2 normal with no audible murmur, regular rhythm. ABDOMEN: No hepatosplenomegaly, normal bowel sounds, no guarding or rigidity. SPINE: No scoliosis or deformity SKIN: No rashes CENTRAL NERVOUS SYSTEM: No focal deficits, tone is normal in all 4 extremities. EXTREMITIES: There is no peripheral edema. No clubbing, no cyanosis. Peripheral pulses are intact. Results - Laboratory Findings CBC and BMP: 02/04/21 08:22 02/04/21 12:26 PT/INR, D-dimer PT 10.0 sec (9.0-12.0) 02/03/21 16:15 INR 0.9 (<1.2) 02/03/21 16:15 Abnormal lab findings: Abnormal Labs 02/03/21 02/03/21 02/03/21 16:15 16:15 16:15 WBC 11.2 H Hct 33.6 L Neutrophils # 8.9 H Lymphocytes # Sodium 111 L* Chloride 77 L Carbon Dioxide 20 L Glucose 125 H POC Glucose (mg/dL) Plasma Lactic Acid Yong Magnesium 1.0 L Urine Appearance Cloudy H Ur Leukocyte Esterase Large H Urine RBC 16 H Urine WBC 24 H Urine Bacteria Rare H Urine Mucus Rare H 02/03/21 02/03/21 02/03/21 16:15 17:30 19:03 WBC Hct Neutrophils # Lymphocytes # Sodium 115 L* Chloride Carbon Dioxide Glucose POC Glucose (mg/dL) 113 H Plasma Lactic Acid Yong 2.8 H* Magnesium Urine Appearance Ur Leukocyte Esterase Urine RBC Urine WBC Urine Bacteria Urine Mucus 02/03/21 02/03/21 02/04/21 20:55 21:50 01:50 WBC Hct Neutrophils # Lymphocytes # Sodium 110 L* 112 L* Chloride Carbon Dioxide Glucose POC Glucose (mg/dL) 108 H Plasma Lactic Acid Yong Magnesium Urine Appearance Ur Leukocyte Esterase Urine RBC Urine WBC Urine Bacteria Urine Mucus 02/04/21 02/04/21 02/04/21 03:42 06:19 08:22 WBC Hct Neutrophils # Lymphocytes # Sodium 114 L* 119 L* Chloride 85 L Carbon Dioxide 21 L Glucose POC Glucose (mg/dL) 100 H Plasma Lactic Acid Yong Magnesium Urine Appearance Ur Leukocyte Esterase Urine RBC Urine WBC Urine Bacteria Urine Mucus 02/04/21 02/04/21 02/04/21 08:22 11:40 12:22 WBC Hct 33.3 L Neutrophils # Lymphocytes # 0.9 L Sodium Chloride Carbon Dioxide Glucose POC Glucose (mg/dL) 147 H 166 H Plasma Lactic Acid Yong Magnesium Urine Appearance Ur Leukocyte Esterase Urine RBC Urine WBC Urine Bacteria Urine Mucus 02/04/21 12:26 WBC Hct Neutrophils # Lymphocytes # Sodium 116 L* Chloride Carbon Dioxide Glucose POC Glucose (mg/dL) Plasma Lactic Acid Yong Magnesium Urine Appearance Ur Leukocyte Esterase Urine RBC Urine WBC Urine Bacteria Urine Mucus - Diagnostic Findings Chest x-ray: image reviewed (No acute pulmonary process) Assessment and Plan Assessment: 1 Generalized weakness, dizziness and falls secondary to significant hyponatremia 2 Hyponatremia suspect related to poor oral intake and indapamide in the outpatient setting, currently on hold 3 Coronary artery disease with previous stent placement 4 History of hypertension 5 Diabetes Robert, type II 6 History of depression 7 Parkinson's disease Plan: The patient was seen and evaluated by Dr. Llamas. Chest x-ray,CT brain and labs reviewed Continue 3% normal saline as recommended per nephrology Continue to monitor her sodium levels Continue to monitor her here in the ICU another 24 hours Indapamide remains on hold We will continue to follow and make further recommendations based on her clinical status I, the cosigning physician, performed a history & physical examination of the patient. Lungs sounds are clear. Maintaining good O2 saturations in the 90s on room air. I discussed the assessment and plan of care with my nurse practitioner, Katie Valadez. I attest to the above consultation as dictated by her. Time with Patient: Greater than 30
[2021-02-04 16:36] LABS: Glucose,Whole Blood 119 mg/dL (75-99)
[2021-02-04 18:34] LABS: Potassium 4.6 mmol/L (3.5-5.1)
[2021-02-04 19:58] LABS: Glucose,Whole Blood 100 mg/dL (75-99)
[2021-02-04] MEDS: ATORVASTATIN 10 MG TAB PO SCH (20:05)
[2021-02-04] MEDS: SODIUM CHLORIDE TAB 1 GM TAB PO SCH (20:05)
[2021-02-04] MEDS: ENOXAPARIN 40 MG/0.4 ML SYRINGE SQ SCH (20:06)
[2021-02-04] MEDS: OLANZapine 10 MG TAB PO SCH (20:06)
[2021-02-05 04:27] LABS: African American GFR (CKD) >90 (>60 ml/min/1.73 sqM); Anion Gap 10 mmol/L; Blood Urea Nitrogen 16 mg/dL (7-17); Calcium 9.2 mg/dL (8.4-10.2); Carbon Dioxide 21 mmol/L (22-30); Chloride 88 mmol/L (98-107); Glucose 99 mg/dL (74-99); Non-African American GFR(CKD) 82 (>60 ml/min/1.73 sqM); Potassium 4.7 mmol/L (3.5-5.1)
[2021-02-05] MEDS: ALPRAZolam 0.25 MG TAB PO PRN (04:30)
[2021-02-05 04:32] LABS: Sodium 119 mmol/L (137-145)
[2021-02-05 05:57] LABS: Glucose,Whole Blood 113 mg/dL (75-99)
[2021-02-05] MEDS: INSULIN ASPART (NovoLOG) 100 UNIT/ML VIAL SQ SCH ×4 (05:57→22:35)
[2021-02-05] MEDS: SODIUM CHLORIDE TAB 1 GM TAB PO SCH (09:54)
[2021-02-05] MEDS: metFORMIN 500 MG TAB PO SCH ×2 (09:54→22:36)
[2021-02-05] MEDS: lisinopriL 20 MG TAB PO SCH ×2 (09:55→22:36)
[2021-02-05] MEDS: ASPIRIN 81 MG PO SCH (09:56)
[2021-02-05] MEDS: METOPROLOL SUCCINATE (ER) 100 MG TAB.ER.24H PO SCH (09:56)
[2021-02-05 11:38] LABS: Glucose,Whole Blood 129 mg/dL (75-99)
--- NOTE | 2021-02-05 11:48 | P.PN ---
Subjective Progress Note Date: 02/05/21 Principal diagnosis: Hyponatremia This is a pleasant 80-year-old female patient with a known history of Parkinson's disease, hearing disorder, hypertension, diabetes mellitus, coronary artery disease with previous stent placement. She had recently had episodes of weakness, difficulty standing and falls. She was brought into the emergency room yesterday for the same. She was found to have significant hypo-natremia with a sodium of 114. White count 6.0. Hemoglobin 12.3. Glucose 147. She was placed on 3% normal saline currently at 30 MLS per hour. Nephrology is on the case. She is seen today in the intensive care unit. She is awake and alert. On room air oxygen. Sodium up to 116. She was on indapamide and Zyprexa in the outpatient setting which are currently on hold. Chest x-ray revealed no acute pulmonary process. Computed tomography scan of the brain field no acute intracranial hemorrhage or midline shift. There is noted moderate diffuse cerebral atrophy and mild to moderate chronic small vessel ischemic changes. The patient is seen today 02/05/2021 in follow-up on the intensive care unit. She is currently sitting up in bed. More awake and alert today. She is maintaining good O2 saturations in the 90s on room air. No IV fluids. Sodium 121. Potassium 4.7. Chloride 88. Bicarb 21. Creatinine 0.71 blood glucose 129. She remains on Lovenox for DVT prophylaxis. Appetite good. Objective - Vital Signs Vital signs: Vital Signs Temp 97.6 F 02/05/21 04:00 Pulse 73 02/05/21 07:00 Resp 10 L 02/05/21 07:00 BP 192/87 02/05/21 07:00 Pulse Ox 97 02/05/21 07:00 Intake & Output 02/04/21 02/05/21 02/05/21 18:59 06:59 18:59 Intake Total 350 250 Output Total 400 550 0 Balance -50 -300 0 Weight 68.4 kg Intake: IV 150 Sodium Chloride 3%( 150 Hypertonic) 500 ml @ 20 mls/hr IV .Q24H [facility] Rx#: [id number] Intake, IV Titration 200 Amount Magnesium Sulfate-D5w Pmx 200 1 gm In Dextrose/Water 1 100ml.bag @ 100 mls/hr IVPB Q1H [facility] Rx#: [id number] Oral 250 Output: Urine 400 550 0 Other: Voiding Method External Catheter External Catheter # Voids 0 0 - Exam GENERAL EXAM: Alert, pleasant, hard of hearing 80-year-old female patient, on room air oxygen, comfortable in no apparent distress. HEAD: Normocephalic. EYES: Normal reaction of pupils, equal size. NOSE: Clear with pink turbinates. THROAT: No erythema or exudates. NECK: No masses, no JVD. CHEST: No chest wall deformity. LUNGS: Equal air entry with no crackles, wheeze, rhonchi or dullness. CVS: S1 and S2 normal with no audible murmur, regular rhythm. ABDOMEN: No hepatosplenomegaly, normal bowel sounds, no guarding or rigidity. SPINE: No scoliosis or deformity SKIN: No rashes CENTRAL NERVOUS SYSTEM: No focal deficits, tone is normal in all 4 extremities. EXTREMITIES: There is no peripheral edema. No clubbing, no cyanosis. Peripheral pulses are intact. - Labs CBC & Chem 7: 02/04/21 08:22 02/05/21 07:49 Labs: Abnormal Lab Results - Last 24 Hours (Table) 02/04/21 02/04/21 02/04/21 Range/Units 12:22 12:26 12:26 Sodium 116 L* (137-145) mmol/L Chloride (98-107) mmol/L Carbon Dioxide (22-30) mmol/L POC Glucose (mg/dL) 166 H (75-99) mg/dL Osmolality 254 L (280-301) mosm/kg 02/04/21 02/04/21 02/04/21 Range/Units 16:34 18:09 19:57 Sodium 117 L* (137-145) mmol/L Chloride (98-107) mmol/L Carbon Dioxide (22-30) mmol/L POC Glucose (mg/dL) 119 H 100 H (75-99) mg/dL Osmolality (280-301) mosm/kg 02/04/21 02/05/21 02/05/21 Range/Units 23:36 03:42 05:55 Sodium 117 L* 119 L* (137-145) mmol/L Chloride 88 L (98-107) mmol/L Carbon Dioxide 21 L (22-30) mmol/L POC Glucose (mg/dL) 113 H (75-99) mg/dL Osmolality 254 L (280-301) mosm/kg 02/05/21 02/05/21 Range/Units 07:49 11:36 Sodium 121 L (137-145) mmol/L Chloride (98-107) mmol/L Carbon Dioxide (22-30) mmol/L POC Glucose (mg/dL) 129 H (75-99) mg/dL Osmolality (280-301) mosm/kg Microbiology - Last 24 Hours (Table) 02/03/21 16:15 Urine Culture - Preliminary Urine,Clean Catch Assessment and Plan Assessment: 1 Generalized weakness, dizziness and falls secondary to significant hyponatremia, improved currently 121. 2 Hyponatremia suspect related to poor oral intake and indapamide in the outpatient setting, currently on hold 3 Coronary artery disease with previous stent placement 4 History of hypertension 5 Diabetes Robert, type II 6 History of depression 7 Parkinson's disease Plan: The patient was seen and evaluated by Dr. Llamas. Cleared for transfer out of the ICU Continue to monitor her sodium levels Indapamide remains on hold We will continue to follow I, the cosigning physician, performed a history & physical examination of the patient. Lungs sounds are clear. Maintaining good O2 saturations in the 90s on room air. I discussed the assessment and plan of care with my nurse practitioner, Katie Valadez. I attest to the above note as dictated by her.
--- NOTE | 2021-02-05 15:52 | P.PN ---
Progress Note - Text Progress Note Date: 02/05/21 Chief Complaint: Dizziness History of presenting complaint: This is a 80-year-old patient who follows with visiting physicians Dr. Turner. Most of the history is obtained by the brother Andres was also the POA. Patient lives at [facility] at the [facility]. Is able to answer simple questions. Chronic stable medical conditions include asthma, diabetes, hypertension, hyperlipidemia, Parkinson's disease, with delusions and memory impairment. She has been advised to take her get a walker. Patient presents to be increasingly unsteady dizziness. Patient's fallen twice in the last 5 days. Has not passed out. No chest pain or palpitation. Patient was found to have a sodium of 111 in the ER. She denies drinking excessive water. Her appetite has not been good. She did have diarrhea in the last for 5 days. Admitted with severe hyponatremia. Put in the ICU. Started on hypertonic saline. February 04: ICU: A bit dizzy and tired. Receiving hypertonic saline at 30 mL an hour. No more diarrhea. Eating some. February 05: Moved out of the ICU. Sodium is, 122. On fluid restriction. Limited food intake. Not very hungry. Add sodium chloride tablets. Serum osmolality is low. Review of systems: Was done for constitutional, cardiovascular, GI, pulmonary. relevant finding as above Active Medications Acetaminophen (Acetaminophen Tab 325 Mg Tab) 650 mg PO Q4HR PRN PRN Reason: Fever and/or Mild Pain Last Admin: 02/04/21 20:06 Dose: 650 mg Documented by: Alprazolam (Alprazolam 0.25 Mg Tab) 0.25 mg PO Q6HR PRN PRN Reason: Anxiety Last Admin: 02/05/21 04:30 Dose: 0.25 mg Documented by: Aspirin (Aspirin 81 Mg) 81 mg PO DAILY [facility] Last Admin: 02/05/21 09:56 Dose: 81 mg Documented by: Atorvastatin Calcium (Atorvastatin 10 Mg Tab) 10 mg PO HS [facility] Last Admin: 02/04/21 20:05 Dose: 10 mg Documented by: Calcium Carbonate/Glycine (Calcium Carbonate 500 Mg Chewable) 1,000 mg PO Q4HR PRN PRN Reason: Dyspepsia Enoxaparin Sodium (Enoxaparin 40 Mg/0.4 Ml Syringe) 40 mg SQ HS [facility] Last Admin: 02/04/21 20:06 Dose: 40 mg Documented by: Insulin Aspart (Insulin Aspart (Novolog) 100 Unit/Ml Vial) 0 unit SQ ACHS [facility]; Protocol Last Admin: 02/05/21 11:48 Dose: Not Given Documented by: Lactulose (Lactulose 20 Gm/30 Ml Cup) 20 gm PO DAILY PRN PRN Reason: Constipation Lisinopril (Lisinopril 20 Mg Tab) 40 mg PO BID [facility] Last Admin: 02/05/21 09:55 Dose: 40 mg Documented by: Melatonin (Melatonin 3 Mg Tablet) 3 mg PO HS PRN PRN Reason: Insomnia Last Admin: 02/04/21 20:05 Dose: 3 mg Documented by: Metformin HCl (Metformin 500 Mg Tab) 500 mg PO BID [facility] Last Admin: 02/05/21 09:54 Dose: 500 mg Documented by: Metoprolol Succinate (Metoprolol Succinate (Er) 100 Mg Tab.Er.24h) 100 mg PO DAILY [facility] Last Admin: 02/05/21 09:56 Dose: 100 mg Documented by: Miscellaneous Information (Potassium Replacement Protocol 1 Each Misc) 1 each MISCELLANE DAILY PRN; Protocol PRN Reason: Per Protocol Miscellaneous Information (Magnesium Replacement Protocol 1 Each Misc) 1 each MISCELLANE DAILY PRN; Protocol PRN Reason: Per Protocol Naloxone HCl (Naloxone 0.4 Mg/Ml 1 Ml Vial) 0.2 mg IV Q2M PRN PRN Reason: Opioid Reversal Olanzapine (Olanzapine 10 Mg Tab) 20 mg PO HS [facility] Last Admin: 02/04/21 20:06 Dose: 20 mg Documented by: Ondansetron HCl (Ondansetron 4 Mg/2 Ml Vial) 4 mg IVP Q8HR PRN PRN Reason: Nausea And Vomiting Ropinirole HCl (Ropinirole Hcl 0.25 Mg Tab) 0.5 mg PO TID@0900,1500,2100 [facility] Last Admin: 02/05/21 09:56 Dose: 0.5 mg Documented by: Sodium Biphosphate/Sodium Phosphate (Na Phos,M-B/Na Phos,Di-Ba 133 Ml Enema) 133 ml RECTAL ONCE PRN PRN Reason: Constipation Sodium Chloride (Sodium Chloride Tab 1 Gm Tab) 1 gm PO BID [facility] Last Admin: 02/05/21 09:54 Dose: 1 gm Documented by: Sodium Chloride (Sodium Chloride Tab 1 Gm Tab) 2 gm PO TID [facility] Past medical history to include: Asthma, diabetes, hyperlipidemia, hypertension, cognitive impairment, Parkinson's, gait dysfunction, CAD with stent, urinary incontinence Social history: Lives at [facility] in the [facility] [place]. Patient's brother Andres is the POA. No smoking or alcohol. Has home help Physical examination: VITAL SIGNS: 97.9, 68, 18, 180/77, 98% room air GENERAL: Reclining in the recliner, awake 1 tired EYES: Pupils equal. Conjunctiva normal. NECK: JVD not raised; masses not palpable. HEART: First and second heart sounds are normal; no edema. LUNGS: Respiratory rate normal; clear to auscultation. ABDOMEN: Soft, nontender, liver spleen not palpable, no masses palpable. MUSCULAR skeletal: Evidence of OA especially in the hands PSYCH: Alert and oriented x3; mood and affect normal. INVESTIGATIONS, reviewed in the clinical context: February 05: Sodium 122 February 04: White count 6 hemoglobin 12.3 platelets 300 sodium 116. Serum osmolality 254 White count 11.2 hemoglobin 11.8 platelets 314 sodium 111 potassium 4.7 bicarb 20 BUN 16 creatinine 0.7 to lactic acid 2.8 Troponin I less than 0.012 Coronavirus [PCR]: Not detected EKG tracing personally reviewed by me-normal sinus rhythm Computed tomography scan of the brain: Moderate diffuse cerebral atrophy. Chronic small vessel changes. Chest x-ray film personally reviewed by me-portable/possible hiatal hernia. Elevation of right diaphragm. Assessment and plan: -Severe symptomatic hypoosmolar, hyponatremia: Slow to respond Patient has been having diarrhea for last 5 days. Also patient been taking a diuretic likely the cause of low-sodium. We'll check patient's serum osmolality, urine sodium and urine osmolality. Initially admitted to ICU with hypertonic saline. Fluid restriction added. Add sodium chloride 2 g 3 times a day tablets -Essential hypertension: Uncontrolled, Hydralazine -resume, Isordil 40 mg twice a day, Toprol-XL 100 mg daily, -Idiopathic Parkinson's disease Requip 0.5 mg by mouth 3 times a day -CAD with stent Zocor 20 mg daily at bedtime, Toprol-XL 100 mg by mouth daily -Diabetes mellitus type 2 on oral hypoglycemic Metformin 500 mg twice a day, follow Accu-Cheks -Moderate cognitive impairment from underlying Parkinson disease -Chronic gait dysfunction from underlying Parkinson disease Fall precautions -JUSTINAndres Duarte [brother] Resume hydralazine. Fluid restriction. Add sodium chloride 2 g 3 times a day. Increase oral intake. Follow BMP.
[2021-02-05] MEDS ORDERED: hydrALAZINE HCL 10 MG TAB PO SCH (16:00)
[2021-02-05] MEDS ORDERED: SODIUM CHLORIDE TAB 1 GM TAB PO SCH (16:00)
[2021-02-05 17:33] LABS: Glucose,Whole Blood 104 mg/dL (75-99)
--- NOTE | 2021-02-05 20:17 | PN ---
PROGRESS NOTE Patient is seen for followup for hyponatremia, mostly associated with decreased oral intake and low urinary osmoles. The patient was placed on 3% saline. Her sodium improved from 111 on admission to 119, following which the 3% saline was discontinued. Patient is maintained on fluid restriction. Urine osmolality was 231. The patient's blood pressure has been on the higher side, and therefore she received just a couple of doses of sodium chloride tabs. Sodium improved from 121 to 122. The patient will be transferred out of the ICU. Overall she states she is feeling better. PHYSICAL EXAMINATION: On examination, blood pressure was 172/74, heart rate 68 per minute. Patient is afebrile. EXAMINATION OF THE HEART: S1 and S2. EXAMINATION OF LUNGS: Decreased breath sounds at the bases. ABDOMEN: Soft, nontender. LOWER EXTREMITIES: Examination of lower extremities shows no evidence of edema. INDUSTRIAL/ORGANIZATIONAL PSYCHOLOGIST EXAM: Grossly intact. LABS: Labs show sodium 122 today. ASSESSMENT: 1. Hyponatremia, euvolemic, associated with [id number] syndrome with low urine osmoles, status post 3% saline; received a couple of doses of sodium chloride tabs with improvement in serum sodium. However, her blood pressure is quite elevated. Therefore I will decrease the sodium chloride tabs and continue with fluid restriction. Pt was on indapamide, on hold now. 2. Hypertension, probably exacerbated with the sodium chloride tablets. Continue with Zestril and increase hydralazine. Decrease sodium chloride load. 3. Dizziness, mostly associated with hyponatremia, currently improved. PLAN: Increase hydralazine. Continue with fluid restriction. Decrease sodium chloride tabs. Given the significant hypertension, I will give the patient a dose of tolvaptan today and we will repeat labs in a.m. MMODL / IJN: [id number] / [facility] CENTERZabrina
[2021-02-05 21:05] LABS: Glucose,Whole Blood 120 mg/dL (75-99)
[2021-02-05] MEDS: ENOXAPARIN 40 MG/0.4 ML SYRINGE SQ SCH (22:34)
[2021-02-05] MEDS: ATORVASTATIN 10 MG TAB PO SCH (22:35)
[2021-02-05] MEDS: OLANZapine 10 MG TAB PO SCH (22:36)
[2021-02-05] MEDS: hydrALAZINE HCL 25 MG TAB PO SCH (22:36)
[2021-02-06] MEDS: ALPRAZolam 0.25 MG TAB PO PRN (00:54)
[2021-02-06 07:47] LABS: Glucose,Whole Blood 112 mg/dL (75-99)
[2021-02-06] MEDS: INSULIN ASPART (NovoLOG) 100 UNIT/ML VIAL SQ SCH ×4 (07:53→22:12)
[2021-02-06] MEDS: METOPROLOL SUCCINATE (ER) 100 MG TAB.ER.24H PO SCH (09:29)
[2021-02-06] MEDS: ASPIRIN 81 MG PO SCH (09:29)
[2021-02-06] MEDS: hydrALAZINE HCL 25 MG TAB PO SCH ×3 (09:29→22:11)
[2021-02-06] MEDS: lisinopriL 20 MG TAB PO SCH ×2 (09:29→22:11)
[2021-02-06] MEDS: SODIUM CHLORIDE TAB 1 GM TAB PO SCH (09:29)
[2021-02-06] MEDS: metFORMIN 500 MG TAB PO SCH ×2 (09:30→22:11)
[2021-02-06 11:01] LABS: ALT 19 U/L (4-34); AST 28 U/L (14-36); African American GFR (CKD) 83 (>60 ml/min/1.73 sqM); Albumin/Globulin Ratio 1.6; Alkaline Phosphatase 71 U/L (38-126); Anion Gap 9 mmol/L; Blood Urea Nitrogen 24 mg/dL (7-17); Calcium 9.4 mg/dL (8.4-10.2); Carbon Dioxide 25 mmol/L (22-30); Chloride 90 mmol/L (98-107); Globulin 2.5 g/dL; Glucose 94 mg/dL (74-99); Non-African American GFR(CKD) 72 (>60 ml/min/1.73 sqM); Potassium 4.8 mmol/L (3.5-5.1); Sodium 124 mmol/L (137-145); Total Bilirubin 0.4 mg/dL (0.2-1.3); Total Protein 6.5 g/dL (6.3-8.2)
[2021-02-06] MEDS: ACETAMINOPHEN TAB 325 MG TAB PO PRN (11:14)
[2021-02-06 11:19] LABS: Basophils # (A) 0.1 k/uL (0-0.2); Basophils % (A) 1 %; Eosinophils # (A) 0.2 k/uL (0-0.7); Eosinophils % (A) 2 %; HCT 32.3 % (34.0-46.0); HGB 11.4 gm/dL (11.4-16.0); Lymphocytes # (A) 1.7 k/uL (1.0-4.8); Lymphocytes % (A) 18 %; MCH 30.9 pg (25.0-35.0); MCHC 35.3 g/dL (31.0-37.0); MCV 87.4 fL (80.0-100.0); Mean Platelet Volume 7.5; Monocytes # (A) 0.7 k/uL (0-1.0); Monocytes % (A) 8 %; Neutrophils # (A) 6.5 k/uL (1.3-7.7); Neutrophils % (A) 69 %; Platelet Count 352 k/uL (150-450); RBC 3.69 m/uL (3.80-5.40); RDW 13.1 % (11.5-15.5); WBC 9.4 k/uL (3.8-10.6)
[2021-02-06 12:08] LABS: Glucose,Whole Blood 201 mg/dL (75-99)
--- NOTE | 2021-02-06 13:02 | P.PN ---
Subjective Progress Note Date: 02/06/21 Principal diagnosis: This is an 80-year-old female seen in consultation because of tea and toast syndrome with hyponatremia. Sodium is slowly improving. She continues to have low appetite. No nausea vomiting no abdominal pain no chest pain shortness of breath headache. No fever chills. She is profoundly weak. She is known with diabetes hypertension asthma Parkinson's and memory impairment Objective - Vital Signs Vital signs: Vital Signs Temp 98.1 F 02/06/21 05:50 Pulse 78 02/06/21 05:50 Resp 20 02/06/21 05:50 BP 176/79 02/06/21 05:50 Pulse Ox 99 02/06/21 05:50 Intake & Output 02/05/21 02/06/21 02/06/21 18:59 06:59 18:59 Intake Total 680 50 Output Total 650 0 Balance 30 50 Intake: Oral 680 50 Output: Urine 650 0 Other: Voiding Method Diaper Diaper External Catheter # Voids 2 550 Examination she is awake alert. HEENT exam no JVP neck is supple no facial asymmetry Heart unremarkable for any murmur rub gallop Lungs are clear to auscultation good air entry bilaterally Abdomen soft nontender Extremity exam was no edema. Neurologically awake and alert. Has poor memory - Labs CBC & Chem 7: 02/06/21 05:45 02/06/21 05:45 Labs: Abnormal Lab Results - Last 24 Hours (Table) 02/05/21 02/05/21 02/05/21 Range/Units 17:31 19:28 20:51 RBC (3.80-5.40) m/uL Hct (34.0-46.0) % Sodium 122 L (137-145) mmol/L Chloride (98-107) mmol/L BUN (7-17) mg/dL POC Glucose (mg/dL) 104 H 120 H (75-99) mg/dL 02/06/21 02/06/21 02/06/21 Range/Units 05:45 05:45 07:36 RBC 3.69 L (3.80-5.40) m/uL Hct 32.3 L (34.0-46.0) % Sodium 124 L (137-145) mmol/L Chloride 90 L (98-107) mmol/L BUN 24 H (7-17) mg/dL POC Glucose (mg/dL) 112 H (75-99) mg/dL 02/06/21 Range/Units 12:01 RBC (3.80-5.40) m/uL Hct (34.0-46.0) % Sodium (137-145) mmol/L Chloride (98-107) mmol/L BUN (7-17) mg/dL POC Glucose (mg/dL) 201 H (75-99) mg/dL Microbiology - Last 24 Hours (Table) 02/03/21 16:15 Urine Culture - Preliminary Urine,Clean Catch Gram Neg Bacilli Assessment and Plan Assessment: Impression 1. Hyponatremia secondary to tea and toast syndrome improving slowly and appropriately. Sodium improved from 111-124 over the last 3 days 2. History of poor memory dementia. 3. History of diabetes mellitus, asthma, hypertension, Parkinson's disease. Recommendation Continue present management, she is on sodium chloride tablets. She has poor appetite and protein intake is low. Suggest give her high protein supplements
--- NOTE | 2021-02-06 17:36 | PN ---
PROGRESS NOTE DATE OF SERVICE: 02/06/2021 This 80-year-old woman who was admitted with dizziness as well as severe symptomatic hypoosmolar hyponatremia is being closely monitored at this time. The patient has IV fluids. Sodium is currently at 124. The patient continues to be confused. Blood sugar is also elevated. Past medical history reviewed. REVIEW OF SYSTEMS: CARDIOVASCULAR SYSTEM: No angina. RESPIRATION: As mentioned earlier. GI: As mentioned earlier. : As mentioned earlier. NERVOUS SYSTEM: Generally weak. CURRENT MEDICATIONS: Reviewed. They include Tylenol, Xanax, aspirin, Lipitor, TUMS. Doses and rest of the medications noted. PHYSICAL EXAMINATION: Patient alert oriented x2. Pulse 70, blood pressure 143/74, respiration 17, temperature 97.6, pulse ox 98% on room air. HEENT: Conjunctivae normal. NECK: No jugular venous distention. CARDIOVASCULAR: S1, S2 muffled. RESPIRATION: Breath sounds diminished at the bases. A few scattered rhonchi and crackles. ABDOMEN: Soft, nontender. LEGS: No edema. No swelling. NERVOUS SYSTEM: Diffusely weak. LABS: WBC 9.1, hemoglobin 11.4. Sodium 124. Other labs are reviewed. ASSESSMENT: 1. Severe symptomatic hypoosmolar hyponatremia, possibly secondary to dehydration. 2. Hypertension. 3. Idiopathic Parkinson's. 4. Gait dysfunction. 5. Diabetes mellitus, type 2. 6. Chronic gait dysfunction. 7. Elevated random glucose. 8. History of coronary artery disease, stent. RECOMMENDATIONS AND DISCUSSION: I recommend to continue current medications, continue with symptomatic treatment. Repeat labs. Closely follow with Nephrology. Guarded prognosis because of multiple complex medical issues. Further recommendations to follow. MMODL / IJN: [id number] /
[2021-02-06 17:42] LABS: Glucose,Whole Blood 85 mg/dL (75-99)
[2021-02-06 20:39] LABS: Glucose,Whole Blood 102 mg/dL (75-99)
[2021-02-06] MEDS: ENOXAPARIN 40 MG/0.4 ML SYRINGE SQ SCH (22:09)
[2021-02-06] MEDS: OLANZapine 10 MG TAB PO SCH (22:11)
[2021-02-06] MEDS: ATORVASTATIN 10 MG TAB PO SCH (22:12)
[2021-02-07 07:11] LABS: Basophils % (A) 1 %; Eosinophils # (A) 0.3 k/uL (0-0.7); Eosinophils % (A) 4 %; HCT 29.8 % (34.0-46.0); Lymphocytes # (A) 1.5 k/uL (1.0-4.8); Lymphocytes % (A) 19 %; MCH 30.4 pg (25.0-35.0); MCHC 33.7 g/dL (31.0-37.0); MCV 90.3 fL (80.0-100.0); Mean Platelet Volume 6.5; Monocytes # (A) 0.6 k/uL (0-1.0); Monocytes % (A) 7 %; Neutrophils # (A) 5.2 k/uL (1.3-7.7); Neutrophils % (A) 67 %; Platelet Count 287 k/uL (150-450); RDW 12.6 % (11.5-15.5); WBC 7.9 k/uL (3.8-10.6)
[2021-02-07 07:39] LABS: Glucose,Whole Blood 109 mg/dL (75-99)
[2021-02-07 07:51] LABS: African American GFR (CKD) 63 (>60 ml/min/1.73 sqM); Anion Gap 7 mmol/L; Blood Urea Nitrogen 24 mg/dL (7-17); Calcium 9.3 mg/dL (8.4-10.2); Carbon Dioxide 25 mmol/L (22-30); Chloride 94 mmol/L (98-107); Glucose 100 mg/dL (74-99); Non-African American GFR(CKD) 55 (>60 ml/min/1.73 sqM); Potassium 4.9 mmol/L (3.5-5.1); Sodium 126 mmol/L (137-145)
[2021-02-07] MEDS: INSULIN ASPART (NovoLOG) 100 UNIT/ML VIAL SQ SCH ×4 (08:32→22:40)
[2021-02-07] MEDS: hydrALAZINE HCL 25 MG TAB PO SCH ×3 (08:33→21:29)
[2021-02-07] MEDS: lisinopriL 20 MG TAB PO SCH ×2 (08:33→21:28)
[2021-02-07] MEDS: ASPIRIN 81 MG PO SCH (08:33)
[2021-02-07] MEDS: metFORMIN 500 MG TAB PO SCH ×2 (08:33→21:28)
[2021-02-07] MEDS: METOPROLOL SUCCINATE (ER) 100 MG TAB.ER.24H PO SCH (08:35)
[2021-02-07] MEDS: SODIUM CHLORIDE TAB 1 GM TAB PO SCH (08:35)
--- NOTE | 2021-02-07 11:11 | P.PN ---
Subjective Progress Note Date: 02/07/21 Principal diagnosis: This is an 80-year-old female seen in consultation because of tea and toast syndrome with hyponatremia. Sodium is slowly improving. She continues to have low appetite looks depressed and according to nursing staff she is eating fair amounts of her meals. No nausea vomiting no abdominal pain no chest pain shortness of breath headache. No fever chills. She is profoundly weak. She is known with diabetes hypertension asthma Parkinson's and memory impairment Objective - Vital Signs Vital signs: Vital Signs Temp 98.1 F 02/07/21 05:05 Pulse 95 02/07/21 05:05 Resp 20 02/07/21 05:05 BP 176/94 02/07/21 05:05 Pulse Ox 97 02/07/21 05:05 Intake & Output 02/06/21 02/07/21 02/07/21 18:59 06:59 18:59 Intake Total 830 340 Balance 830 340 Intake: Oral 830 340 Other: Voiding Method External Catheter Toilet Diaper Diaper Incontinent External Catheter # Voids 3 3 # Bowel Movements 1 1 On examination she is awake alert. Looks depressed HEENT exam no JVP neck is supple no facial asymmetry Lungs are clear to percussion good air entry bilaterally Heart sounds unremarkable no murmur rub gallop Abdomen soft nontender Extremity exam was no edema Neurologically awake alert oriented. Generalized weakness - Labs CBC & Chem 7: 02/07/21 06:29 02/07/21 06:29 Labs: Abnormal Lab Results - Last 24 Hours (Table) 02/06/21 02/06/21 02/06/21 Range/Units 05:45 12:01 20:26 RBC 3.69 L (3.80-5.40) m/uL Hgb (11.4-16.0) gm/dL Hct 32.3 L (34.0-46.0) % Sodium (137-145) mmol/L Chloride (98-107) mmol/L BUN (7-17) mg/dL Glucose (74-99) mg/dL POC Glucose (mg/dL) 201 H 102 H (75-99) mg/dL 02/07/21 02/07/21 02/07/21 Range/Units 06:29 06:29 07:32 RBC 3.30 L (3.80-5.40) m/uL Hgb 10.0 L (11.4-16.0) gm/dL Hct 29.8 L (34.0-46.0) % Sodium 126 L (137-145) mmol/L Chloride 94 L (98-107) mmol/L BUN 24 H (7-17) mg/dL Glucose 100 H (74-99) mg/dL POC Glucose (mg/dL) 109 H (75-99) mg/dL Microbiology - Last 24 Hours (Table) 02/03/21 16:15 Urine Culture - Final Urine,Clean Catch Escherichia coli Pseudomonas aeruginosa Assessment and Plan Assessment: Impression 1. Hyponatremia secondary to tea and toast syndrome improving slowly and appropriately. Sodium improved from 111-126 over the last 4 days 2. History of poor memory, dementia. 3. History of diabetes mellitus, asthma, hypertension, Parkinson's disease. Recommendation Continue present management, she is on sodium chloride tablets. She has poor appetite and protein intake is low. If she does not eat give her high protein supplements
[2021-02-07 11:31] LABS: Glucose,Whole Blood 160 mg/dL (75-99)
[2021-02-07] MEDS: ACETAMINOPHEN TAB 325 MG TAB PO PRN (12:50)
[2021-02-07 17:30] LABS: Glucose,Whole Blood 94 mg/dL (75-99)
--- NOTE | 2021-02-07 18:47 | PN ---
PROGRESS NOTE DATE OF SERVICE: 02/07/2021 This 80-year-old woman who was admitted with dizziness and as well as severe symptomatic hyponatremia is being closely monitored. No chest pain. No palpitations. No fever. Sodium today is 126. Nephrology following the patient closely. PHYSICAL EXAMINATION: Alert and oriented x3. Pulse 71, blood pressure 142/82, respirations 16, temperature 98.2, pulse ox 98% on room air. HEENT: Conjunctivae normal. Oral mucosa moist. NECK: No jugular venous distention. No lymph node enlargement. CARDIOVASCULAR: S1, S2, muffled. No S3, no S4, RESPIRATORY: Diminished breath sounds at the bases. No rhonchi, no crackles. ABDOMEN: Soft, nontender. LEGS: No edema, no swelling. NERVOUS SYSTEM: Diffusely weak. LABS: Sodium 136. Other labs are noted. ASSESSMENT: 1. Severe symptomatic hypoosmolar hyponatremia possibly secondary from dehydration. 2. Hypertension. 3. Idiopathic Parkinson's disease. 4. Gait dysfunction. 5. Diabetes mellitus type 2. 6. Chronic gait dysfunction. 7. Elevated random glucose. 8. History of CAD, stent. RECOMMENDATIONS AND DISCUSSION: I recommend to continue current management and symptomatic treatment. Otherwise, at this time I recommend repeat labs in the morning. Closely follow with Nephrology, PT/OT evaluation, possible ECF rehab, further recommendations to follow. MMODL / IJN: [id number] /
[2021-02-07 20:11] LABS: Glucose,Whole Blood 168 mg/dL (75-99)
[2021-02-07] MEDS: ATORVASTATIN 10 MG TAB PO SCH (21:29)
[2021-02-07] MEDS: OLANZapine 10 MG TAB PO SCH (21:29)
[2021-02-07] MEDS: ENOXAPARIN 40 MG/0.4 ML SYRINGE SQ SCH (21:30)
[2021-02-08 06:44] LABS: Basophils # (A) 0.1 k/uL (0-0.2); Basophils % (A) 1 %; Eosinophils # (A) 0.4 k/uL (0-0.7); Eosinophils % (A) 4 %; HCT 31.1 % (34.0-46.0); HGB 10.6 gm/dL (11.4-16.0); Lymphocytes # (A) 1.7 k/uL (1.0-4.8); Lymphocytes % (A) 20 %; Mean Platelet Volume 6.8; Monocytes # (A) 0.6 k/uL (0-1.0); Monocytes % (A) 7 %; Neutrophils # (A) 5.5 k/uL (1.3-7.7); Neutrophils % (A) 65 %; Platelet Count 293 k/uL (150-450); RBC 3.42 m/uL (3.80-5.40); RDW 12.7 % (11.5-15.5); WBC 8.5 k/uL (3.8-10.6)
[2021-02-08 07:13] LABS: Glucose,Whole Blood 116 mg/dL (75-99)
[2021-02-08] MEDS: INSULIN ASPART (NovoLOG) 100 UNIT/ML VIAL SQ SCH ×2 (07:37→12:40)
[2021-02-08] MEDS: hydrALAZINE HCL 25 MG TAB PO SCH (08:09)
[2021-02-08] MEDS: metFORMIN 500 MG TAB PO SCH (08:09)
[2021-02-08] MEDS: ASPIRIN 81 MG PO SCH (08:09)
[2021-02-08] MEDS: lisinopriL 20 MG TAB PO SCH (08:09)
[2021-02-08] MEDS: METOPROLOL SUCCINATE (ER) 100 MG TAB.ER.24H PO SCH (08:10)
[2021-02-08] MEDS: SODIUM CHLORIDE TAB 1 GM TAB PO SCH (08:10)
--- NOTE | 2021-02-08 08:51 | P.PN ---
Subjective Patient is seen in follow-up for hyponatremia. Resting in bed. Not a reliable historian. States she needs to use the bathroom. Oral intake fair per the nurse. Vital signs are stable. General: The patient appeared well nourished and normally developed. HEENT: Head exam is unremarkable. LUNGS: Breath sounds decreased. HEART: Rate and Rhythm are regular. ABDOMEN: Soft, no distention. EXTREMITITES: No edema. Objective - Vital Signs Vital signs: Vital Signs Temp 97.8 F 02/08/21 04:19 Pulse 83 02/08/21 04:19 Resp 16 02/08/21 04:19 BP 184/80 02/08/21 04:19 Pulse Ox 98 02/08/21 04:19 Intake & Output 02/07/21 02/08/21 02/08/21 18:59 06:59 18:59 Intake Total 840 240 Output Total 0 Balance 840 240 Intake: Oral 840 240 Output: Urine 0 Other: Voiding Method Diaper Diaper Incontinent Incontinent # Voids 3 2 1 # Bowel Movements 1 - Labs CBC & Chem 7: 02/08/21 06:20 02/07/21 06:29 Labs: Abnormal Lab Results - Last 24 Hours (Table) 02/07/21 02/07/21 02/08/21 Range/Units 11:28 20:09 06:20 RBC 3.42 L (3.80-5.40) m/uL Hgb 10.6 L (11.4-16.0) gm/dL Hct 31.1 L (34.0-46.0) % POC Glucose (mg/dL) 160 H 168 H (75-99) mg/dL 02/08/21 Range/Units 07:12 RBC (3.80-5.40) m/uL Hgb (11.4-16.0) gm/dL Hct (34.0-46.0) % POC Glucose (mg/dL) 116 H (75-99) mg/dL Assessment and Plan Plan: Assessment: 1. Hyponatremia from poor solute intake. Sodium level 126 yesterday. Urine sodium 37 and urine osmolality 231. 2. History of dementia. 3. Diabetes mellitus. 4. Benign hypertension. Plan: Maintain fluid restriction. Decrease lisinopril to 40 mg once daily as that is the maximum recommended dose. Increase hydralazine to 50 mg 3 times daily. Encourage oral intake. Maintain sodium chloride tab. Possible discharge to ECF today. Repeat BMP 2-3 days postdischarge. Follow up outpatient in 1 week.
[2021-02-08] MEDS ORDERED: lisinopriL 20 MG TAB PO SCH (09:00)
[2021-02-08] MEDS ORDERED: hydrALAZINE HCL 50 MG TAB PO SCH (09:00)
[2021-02-08 10:04] LABS: Anion Gap 16.1 mmol/L (4.00-12.00); BUN/Creat Ratio 26.67 Ratio (12.00-20.00); Calcium 9.4 mg/dL (8.7-10.3); Carbon Dioxide 21.9 mmol/L (21.6-31.8); Non-African American GFR(CKD) 60.4 (60.0-200.0); Potassium 4.9 mmol/L (3.5-5.5)
[2021-02-08 11:02] LABS: Glucose,Whole Blood 182 mg/dL (75-99)
[2021-02-08 11:33] VITALS: BP 94/57; PULSE 72; RESP 17; TEMP 97.3
--- NOTE | 2021-02-08 18:27 | P.DS ---
Providers Date of admission: 02/03/21 17:09 Expected date of discharge: 02/08/21 Attending physician: Lang Gonzalez Consults: 02/03/21 17:26 Consult Physician Stat Consulting Provider: Sg Llamas Consult Reason/Comments: Hyponatremia Do you want consulting provider notified?: Already Contacted Consult Physician Urgent Consulting Provider: Sandra Carbajal Consult Reason/Comments: Hyponatremia Do you want consulting provider notified?: Yes Primary care physician: Fausto Turner [facility] Course: Chief Complaint: Dizziness History of presenting complaint: This is a 80-year-old patient who follows with visiting physicians Dr. Turner. Most of the history is obtained by the brother Andres was also the POA. Patient lives at [facility] at the [facility]. Is able to answer simple questions. Chronic stable medical conditions include asthma, diabetes, hypertension, hyperlipidemia, Parkinson's disease, with delusions and memory impairment. She has been advised to take her get a walker. Patient presents to be increasingly unsteady dizziness. Patient's fallen twice in the last 5 days. Has not passed out. No chest pain or palpitation. Patient was found to have a sodium of 111 in the ER. She denies drinking excessive water. Her appetite has not been good. She did have diarrhea in the last for 5 days. Admitted with severe hyponatremia. Put in the ICU. Started on hypertonic saline. Also added salt tablets. Fluid restriction. Patient did respond. February 08: Doing better. Oral intake good. Counseled about fluid intake. Spoke to patient's in detail about the phone. Questions answered. Patient regarding back to her assisted living. Follow-up with nephrology. Recheck labs. Discussion and discharge planning more than 35 minutes Consultation: Nephrology Dr. Azar from pulmonary Past medical history to include: Asthma, diabetes, hyperlipidemia, hypertension, cognitive impairment, Parkinson's, gait dysfunction, CAD with stent, urinary incontinence Social history: Lives at [facility] in the [facility]. Patient's brother Andres is the POA. No smoking or alcohol. Has home help Physical examination: VITAL SIGNS: 97.3, 72, 17, 142/52, 98% room air GENERAL: Reclining in the recliner, awake EYES: Pupils equal. Conjunctiva normal. NECK: JVD not raised; masses not palpable. HEART: First and second heart sounds are normal; no edema. LUNGS: Respiratory rate normal; clear to auscultation. ABDOMEN: Soft, nontender, liver spleen not palpable, no masses palpable. MUSCULAR skeletal: Evidence of OA especially in the hands PSYCH: Alert and oriented x3; mood and affect normal. INVESTIGATIONS, reviewed in the clinical context: February 08: White count 8.5 hemoglobin 10.6 platelets 293 sodium 132 creatinine 0.9 February 05: Sodium 122 February 04: White count 6 hemoglobin 12.3 platelets 300 sodium 116. Serum osmolality 254 White count 11.2 hemoglobin 11.8 platelets 314 sodium 111 potassium 4.7 bicarb 20 BUN 16 creatinine 0.7 to lactic acid 2.8 Troponin I less than 0.012 Coronavirus [PCR]: Not detected EKG tracing personally reviewed by me-normal sinus rhythm Computed tomography scan of the brain: Moderate diffuse cerebral atrophy. Chronic small vessel changes. Chest x-ray film personally reviewed by me-portable/possible hiatal hernia. Elevation of right diaphragm. Assessment and plan: -Severe symptomatic hypoosmolar, hyponatremia: Slow to respond Patient has been having diarrhea for last 5 days. Also patient been taking a diuretic likely the cause of low-sodium. hypertonic saline. Fluid restriction-1500 mL sodium chloride 1 g daily -Essential hypertension: Uncontrolled, Hydralazine 50 mg 3 times a day, Zestril 20 mg twice a day, Toprol-XL 100 mg daily, -Idiopathic Parkinson's disease Requip 0.5 mg by mouth 3 times a day -CAD with stent Zocor 20 mg daily at bedtime, Toprol-XL 100 mg by mouth daily -Diabetes mellitus type 2 on oral hypoglycemic Metformin 500 mg twice a day, follow Accu-Cheks -Moderate cognitive impairment from underlying Parkinson disease -Chronic gait dysfunction from underlying Parkinson disease Fall precautions -POA, Andres [brother] -DO NOT RESUSCITATE Disposition: [facility] Plan - Discharge Summary Discharge Rx Participant: Yes New Discharge Prescriptions: New hydrALAZINE HCL [Apresoline] 50 mg PO TID #90 tab Melatonin 3 mg PO HS PRN #30 tablet PRN Reason: Insomnia lisinopriL [Zestril] 20 mg PO BID tab Sodium Chloride Tab 1 gm PO DAILY #30 tablet Continue Acetaminophen [Tylenol Extra Strength] 1,000 mg PO Q6H PRN PRN Reason: Fever And/ Or Pain rOPINIRole HCL [Requip] 0.5 mg PO TID@0900,1500,2100 Simvastatin [Zocor] 20 mg PO HS metFORMIN HCL ER [Glucophage XR] 500 mg PO BID Aspirin EC [Ecotrin Low Dose] 81 mg PO DAILY Bismuth Subsalicylate [Pepto-Bismol] 524 mg PO Q30M PRN MDD 8 DOSES/24 HOURS PRN Reason: UPSET STOMACH/HEARBURN OLANZapine [ZyPREXA] 20 mg PO HS Metoprolol Succinate [Toprol XL] 100 mg PO DAILY Discontinued Indapamide 2.5 mg PO DAILY hydrALAZINE HCL [Apresoline] 10 mg PO QID lisinopriL 40 mg PO BID Discharge Medication List Acetaminophen [Tylenol Extra Strength] 1,000 mg PO Q6H PRN 02/03/21 [History] Aspirin EC [Ecotrin Low Dose] 81 mg PO DAILY 02/03/21 [History] Bismuth Subsalicylate [Pepto-Bismol] 524 mg PO Q30M PRN MDD 8 DOSES/24 HOURS 02/03/21 [History] Metoprolol Succinate [Toprol XL] 100 mg PO DAILY 02/03/21 [History] OLANZapine [ZyPREXA] 20 mg PO HS 02/03/21 [History] Simvastatin [Zocor] 20 mg PO HS 02/03/21 [History] metFORMIN HCL ER [Glucophage XR] 500 mg PO BID 02/03/21 [History] rOPINIRole HCL [Requip] 0.5 mg PO TID@0900,1500,2100 02/03/21 [History] Melatonin 3 mg PO HS PRN #30 tablet 02/08/21 [Rx] Sodium Chloride Tab 1 gm PO DAILY #30 tablet 02/08/21 [Rx] hydrALAZINE HCL [Apresoline] 50 mg PO TID #90 tab 02/08/21 [Rx] lisinopriL [Zestril] 20 mg PO BID tab 02/08/21 [Rx] Follow up Appointment(s)/Referral(s): [facility], [NON-STAFF] - 1-2 Days Fausto Turner MD [Primary Care Provider] - 1-2 days (PLEASE CALL FOR APPOINTMENT.) Pranav Marquez DO [STAFF PHYSICIAN] - 10/13/21 9:00 am (APPOINTMENT IS WITH [facility]-NURSE PRACTITIONER.) [facility] [NON-STAFF] - (Supplier of two wheeled walker) Patient Instructions/Handouts: Hyponatremia (DC), Fall Prevention for Older Adults (DC), Fluid Restriction (DC) Activity/Diet/Wound Care/Special Instructions: Nurse must sign and date med rec when Pt leaves to return to [facility] fluid restriction 1500 cc/day bmp - 5 days Discharge Disposition: HOME SELF-CARE
== END 2021-02-08 14:30 | disposition home or self-care (01) | DRG 641 ==
LOC: EC 15:06 → EEVIPCON 15:06 → 2SICU 17:09 → 5NMEDONC 02-05 12:54
PROVIDERS: ADMIT Hospitalist; ATTEND Hospitalist
DX: E87.1 Hypo-osmolality and hyponatremia (principal); E87.2 Acidosis; E11.9 Type 2 diabetes mellitus without complications; E78.5 Hyperlipidemia, unspecified; E83.42 Hypomagnesemia; F02.80 Dementia in other diseases classified elsewhere, unspecified severity, without behavioral disturbance, psychotic disturbance, mood disturbance, and anxiety; G20 Parkinson's disease; I10 Essential (primary) hypertension; I25.10 Atherosclerotic heart disease of native coronary artery without angina pectoris; H91.90 Unspecified hearing loss, unspecified ear; J45.909 Unspecified asthma, uncomplicated; Z20.822 Contact with and (suspected) exposure to COVID-19; Z66 Do not resuscitate; Z91.81 History of falling; W19.XXXA Unspecified fall, initial encounter; Z79.82 Long term (current) use of aspirin; Z79.84 Long term (current) use of oral hypoglycemic drugs; Z79.899 Other long term (current) drug therapy; Z95.5 Presence of coronary angioplasty implant and graft; Z88.2 Allergy status to sulfonamides; Z88.8 Allergy status to other drugs, medicaments and biological substances; Z88.5 Allergy status to narcotic agent; R19.7 Diarrhea, unspecified
CPT/HCPCS: 36415; 70450; 71046; 80048; 80053; 81001; 83605; 83735; 83930; 83935; 84132; 84295; 84300; 84484; 85025; 85610; 85730; 87077; 87086; 87186; 87635; 93005; 96361; 96374; 99291

== ENCOUNTER 2022-02-05 07:57 | Emergency (ER) | payer MEDICARE ==
[2022-02-05 08:04] VITALS: TEMP 97.7
--- NOTE | 2022-02-05 08:16 | ED ---
General Adult HPI - General Chief complaint: Weakness Stated complaint: weakness Time Seen by Provider: 02/05/22 08:00 Source: patient, EMS, RN notes reviewed, old records reviewed Mode of arrival: EMS Limitations: altered mental status - History of Present Illness Initial comments: This is an 81-year-old female presents to the emergency department from an assisted living facility. Patient pressure button because she states the left side is hurting her left arm or left chest to her left abdomen and her left hip. Patient states this is been ongoing since Monday after she had fallen. Patient doesn't know the fall caused her the pain in fact because of her dementia she is not really sure that the fall has anything to do with her pain and I'm not sure if the pain really began on Monday or not because she is an accurate but other questions that we ask. Patient has had no history of any fever according to EMS is been no known fall per EMS. Patient denies any difficulty breathing. Patient denies any significant pain unless she is moving. EMS stated that the patient was able to ambulate with assistance and did not seem to be in any pain when doing so. - Related Data Home Medications Medication Instructions Recorded Confirmed Acetaminophen [Tylenol Extra 1,000 mg PO Q6H PRN 02/03/21 02/03/21 Strength] Aspirin EC [Ecotrin Low Dose] 81 mg PO DAILY 02/03/21 02/03/21 Bismuth Subsalicylate 524 mg PO Q30M PRN MDD 8 DOSES/24 02/03/21 02/03/21 [Pepto-Bismol] HOURS Metoprolol Succinate [Toprol XL] 100 mg PO DAILY 02/03/21 02/03/21 OLANZapine [ZyPREXA] 20 mg PO HS 02/03/21 02/03/21 Simvastatin [Zocor] 20 mg PO HS 02/03/21 02/03/21 metFORMIN HCL ER [Glucophage XR] 500 mg PO BID 02/03/21 02/03/21 rOPINIRole HCL [Requip] 0.5 mg PO TID@0900,1500,2100 02/03/21 02/03/21 Previous Rx's Medication Instructions Recorded Melatonin 3 mg PO HS PRN #30 tablet 02/08/21 Sodium Chloride Tab 1 gm PO DAILY #30 tablet 02/08/21 hydrALAZINE HCL [Apresoline] 50 mg PO TID #90 tab 02/08/21 lisinopriL [Zestril] 20 mg PO BID tab 02/08/21 Allergies Allergy/AdvReac Type Severity Reaction Status Date / Time TROY Inhibitors Allergy Unknown Verified 02/05/22 08:04 codeine Allergy Unknown Verified 02/05/22 08:04 NSAIDS (Non-Steroidal Allergy Unknown Verified 02/05/22 08:04 Anti-Inflamma sertraline [From Zoloft] Allergy Unknown Verified 02/05/22 08:04 Sulfa (Sulfonamide Allergy Unknown Verified 02/05/22 08:04 Antibiotics) trazodone Allergy Unknown Verified 02/05/22 08:04 Review of Systems ROS Statement: Those systems with pertinent positive or pertinent negative responses have been documented in the HPI. ROS Other: All systems not noted in ROS Statement are negative. Past Medical History Past Medical History: Asthma, Diabetes Mellitus, Hyperlipidemia, Hypertension History of Any Multi-Drug Resistant Organisms: None Reported Past Surgical History: Heart Catheterization With Stent Past Anesthesia/Blood Transfusion Reactions: No Reported Reaction Date of Last Stent Placement:: Pt unsure Past Psychological History: No Psychological Hx Reported Smoking Status: Never smoker Past Alcohol Use History: None Reported Past Drug Use History: None Reported General Exam - General Exam Comments Initial Comments: GENERAL: Patient is well-developed and well-nourished. Patient is nontoxic and well- hydrated and is in no acute distress. Patient does not appear to be in any distress and she moves everything equally. ENT: Neck is soft and supple. No significant lymphadenopathy is noted. Oropharynx is clear. Moist mucous membranes. Neck has full range of motion without eliciting any pain. EYES: The sclera were anicteric and conjunctiva were pink and moist. Extraocular movements were intact and pupils were equal round and reactive to light. Eyelids were unremarkable. PULMONARY: Unlabored respirations. Good breath sounds bilaterally. No audible rales rhonchi or wheezing was noted. CARDIOVASCULAR: There is a regular rate and rhythm without any murmurs gallops or rubs. ABDOMEN: Soft and nontender with normal bowel sounds. SKIN: Skin is clear with no lesions or rashes and otherwise unremarkable. I see no signs of any trauma contusions or abrasions. NEUROLOGIC: Patient is alert and oriented 2. Cranial nerves II through XII are grossly intact. Motor and sensory are also intact. Normal speech, volume and content. Symmetrical smile. MUSCULOSKELETAL: Normal extremities with adequate strength and full range of motion. No lower extremity swelling or edema. No calf tenderness. LYMPHATICS: No significant lymphadenopathy is noted PSYCHIATRIC: Normal psychiatric evaluation. Limitations: no limitations Course Vital Signs 02/05/22 02/05/22 08:00 10:35 Temperature 97.7 F Pulse Rate 73 Pulse Rate [ 68 Sitting Automatic Washer Mechanic] Pulse Rate [ 71 Standing Automatic Washer Mechanic ] Pulse Rate [ 66 Supine Automatic Washer Mechanic] Respiratory 18 20 Rate Blood Pressure 164/66 Blood Pressure 143/87 [Right Arm Sitting] Blood Pressure 136/69 [Right Arm Standing] Blood Pressure 139/69 [Right Arm Supine] O2 Sat by Pulse 95 96 Oximetry Medical Decision Making - Medical Decision Making EKG shows sinus rhythm at 70 bpm SD interval is 221 QRS is 95 Q-T intervals 450 QTC is 479. Patient's EKG shows no ST segment elevation or depression. Patient was able to ambulate with a walker. Chest x-ray shows no acute abnormality. There was no left-sided weakness appreciated and I could not find any area of specific pain on palpation of the arm neck chest abdomen or hip X-ray of the humerus shows no acute abnormality. - Lab Data Result diagrams: 02/05/22 08:25 02/05/22 08:25 Lab Results 02/05/22 02/05/22 02/05/22 Range/Units 08:25 08:25 08:25 WBC 10.8 H (3.8-10.6) k/uL RBC 4.52 (3.80-5.40) m/uL Hgb 12.9 (11.4-16.0) gm/dL Hct 39.8 (34.0-46.0) % MCV 88.0 (80.0-100.0) fL MCH 28.5 (25.0-35.0) pg MCHC 32.4 (31.0-37.0) g/dL RDW 13.5 (11.5-15.5) % Plt Count 266 (150-450) k/uL MPV 7.5 Neutrophils % 83 % Lymphocytes % 8 % Monocytes % 6 % Eosinophils % 2 % Basophils % 1 % Neutrophils # 8.9 H (1.3-7.7) k/uL Lymphocytes # 0.8 L (1.0-4.8) k/uL Monocytes # 0.6 (0-1.0) k/uL Eosinophils # 0.2 (0-0.7) k/uL Basophils # 0.1 (0-0.2) k/uL Sodium 139 (137-145) mmol/L Potassium 3.2 L (3.5-5.1) mmol/L Chloride 95 L (98-107) mmol/L Carbon Dioxide 32 H (22-30) mmol/L Anion Gap 12 mmol/L BUN 32 H (7-17) mg/dL Creatinine 1.01 (0.52-1.04) mg/dL Est GFR (CKD-EPI)AfAm 60 (>60 ml/min/1.73 sqM) Est GFR (CKD-EPI)NonAf 52 (>60 ml/min/1.73 sqM) Glucose 223 H (74-99) mg/dL Plasma Lactic Acid Yong (0.7-2.0) mmol/L Calcium 9.2 (8.4-10.2) mg/dL Magnesium 1.5 L (1.6-2.3) mg/dL Total Bilirubin 0.6 (0.2-1.3) mg/dL AST 29 (14-36) U/L ALT 20 (4-34) U/L Alkaline Phosphatase 111 (38-126) U/L Troponin I (0.000-0.034) ng/mL Total Protein 6.6 (6.3-8.2) g/dL Albumin 4.2 (3.5-5.0) g/dL Urine Color Light Yellow Urine Appearance Clear (Clear) Urine pH 6.5 (5.0-8.0) Ur Specific [place] 1.008 (1.001-1.035) Urine Protein Negative (Negative) Urine Glucose (UA) Negative (Negative) Urine Ketones Negative (Negative) Urine Blood Negative (Negative) Urine Nitrite Negative (Negative) Urine Bilirubin Negative (Negative) Urine Urobilinogen <2.0 (<2.0) mg/dL Ur Leukocyte Esterase Negative (Negative) 02/05/22 02/05/22 Range/Units 08:25 08:25 WBC (3.8-10.6) k/uL RBC (3.80-5.40) m/uL Hgb (11.4-16.0) gm/dL Hct (34.0-46.0) % MCV (80.0-100.0) fL MCH (25.0-35.0) pg MCHC (31.0-37.0) g/dL RDW (11.5-15.5) % Plt Count (150-450) k/uL MPV Neutrophils % % Lymphocytes % % Monocytes % % Eosinophils % % Basophils % % Neutrophils # (1.3-7.7) k/uL Lymphocytes # (1.0-4.8) k/uL Monocytes # (0-1.0) k/uL Eosinophils # (0-0.7) k/uL Basophils # (0-0.2) k/uL Sodium (137-145) mmol/L Potassium (3.5-5.1) mmol/L Chloride (98-107) mmol/L Carbon Dioxide (22-30) mmol/L Anion Gap mmol/L BUN (7-17) mg/dL Creatinine (0.52-1.04) mg/dL Est GFR (CKD-EPI)AfAm (>60 ml/min/1.73 sqM) Est GFR (CKD-EPI)NonAf (>60 ml/min/1.73 sqM) Glucose (74-99) mg/dL Plasma Lactic Acid Yong 1.5 (0.7-2.0) mmol/L Calcium (8.4-10.2) mg/dL Magnesium (1.6-2.3) mg/dL Total Bilirubin (0.2-1.3) mg/dL AST (14-36) U/L ALT (4-34) U/L Alkaline Phosphatase (38-126) U/L Troponin I <0.012 (0.000-0.034) ng/mL Total Protein (6.3-8.2) g/dL Albumin (3.5-5.0) g/dL Urine Color Urine Appearance (Clear) Urine pH (5.0-8.0) Ur Specific [place] (1.001-1.035) Urine Protein (Negative) Urine Glucose (UA) (Negative) Urine Ketones (Negative) Urine Blood (Negative) Urine Nitrite (Negative) Urine Bilirubin (Negative) Urine Urobilinogen (<2.0) mg/dL Ur Leukocyte Esterase (Negative) Disposition Clinical Impression: Left arm pain Disposition: HOME SELF-CARE Condition: Good Instructions (If sedation given, give patient instructions): Arm Pain (ED) Is patient prescribed a controlled substance at d/c from ED?: No Referrals: None,Stated [REFERRING] - 1-2 days Time of Disposition: 10:37
--- NOTE | 2022-02-05 08:34 | XR ---
EXAMINATION TYPE: XR chest 2V DATE OF EXAM: 02/05/2022 COMPARISON: 02/03/2021 HISTORY: Shortness of breath TECHNIQUE: Frontal and lateral views of the chest are obtained. FINDINGS: Scattered senescent parenchymal changes noted. Hyperinflation compatible with COPD. No evidence for infiltrate. No evidence for atelectasis. Heart size is stable. Mediastinal structures are stable and grossly unremarkable. No evidence for hilar prominence. Degenerative changes dorsal spine. IMPRESSION: 1. No evidence for acute pulmonary disease.
[2022-02-05 08:49] LABS: Basophils # (A) 0.1 k/uL (0-0.2); Basophils % (A) 1 %; Eosinophils # (A) 0.2 k/uL (0-0.7); Eosinophils % (A) 2 %; HCT 39.8 % (34.0-46.0); HGB 12.9 gm/dL (11.4-16.0); Lymphocytes # (A) 0.8 k/uL (1.0-4.8); Lymphocytes % (A) 8 %; MCH 28.5 pg (25.0-35.0); MCHC 32.4 g/dL (31.0-37.0); Mean Platelet Volume 7.5; Monocytes # (A) 0.6 k/uL (0-1.0); Monocytes % (A) 6 %; Neutrophils # (A) 8.9 k/uL (1.3-7.7); Neutrophils % (A) 83 %; Platelet Count 266 k/uL (150-450); RBC 4.52 m/uL (3.80-5.40); RDW 13.5 % (11.5-15.5); WBC 10.8 k/uL (3.8-10.6)
[2022-02-05 08:59] LABS: Appearance,Urine Clear (Clear); Bilirubin,Urine Negative (Negative); Blood,Urine Negative (Negative); Color,Urine Light Yellow; Glucose,Urine (UA) Negative (Negative); Ketones,Urine Negative (Negative); Leukocyte Esterase,Urine Negative (Negative); Nitrite,Urine Negative (Negative); PH, Urine 6.5 (5.0-8.0); Protein,Urine Negative (Negative); Specific Gravity,Urine 1.008 (1.001-1.035); Urobilinogen,Urine <2.0 mg/dL (<2.0)
[2022-02-05 09:03] LABS: Albumin 4.2 g/dL (3.5-5.0); Calcium 9.2 mg/dL (8.4-10.2); Magnesium 1.5 mg/dL (1.6-2.3); Potassium 3.2 mmol/L (3.5-5.1); Total Bilirubin 0.6 mg/dL (0.2-1.3); Total Protein 6.6 g/dL (6.3-8.2)
[2022-02-05] MEDS ORDERED: MAGNESIUM OXIDE 400 MG TAB PO STA (10:12)
[2022-02-05] MEDS ORDERED: POTASSIUM CHLORIDE ER 20 MEQ TAB.ER PO STA (10:12)
--- NOTE | 2022-02-05 11:49 | XR ---
Liver EXAMINATION TYPE: XR humerus LT DATE OF EXAM: 02/05/2022 CLINICAL HISTORY: pain TECHNIQUE: Frontal and lateral images of the left humerus are obtained. COMPARISON: None. FINDINGS: There is no acute fracture/dislocation evident. The joint spaces appear within normal limi ts. The overlying soft tissue appears unremarkable. IMPRESSION: There is no acute fracture or dislocation. ICD 10 NO FRACTURE, INITIAL EVALUATION
[2022-02-05 13:48] VITALS: BP 148/73; PULSE 62; RESP 16
== END 2022-02-05 12:25 | disposition home or self-care (01) ==
LOC: EC 07:57
DX: M79.602 Pain in left arm (principal); J45.909 Unspecified asthma, uncomplicated; E11.9 Type 2 diabetes mellitus without complications; I10 Essential (primary) hypertension; E78.5 Hyperlipidemia, unspecified; Z88.5 Allergy status to narcotic agent; Z88.2 Allergy status to sulfonamides; Z88.6 Allergy status to analgesic agent; Z88.8 Allergy status to other drugs, medicaments and biological substances; Z79.84 Long term (current) use of oral hypoglycemic drugs; Z79.82 Long term (current) use of aspirin; Z79.899 Other long term (current) drug therapy
CPT/HCPCS: 36415; 71046; 80053; 81003; 83605; 83735; 84484; 85025; 93005; 99285

== ENCOUNTER 2022-06-05 06:55 | Observation (INO) | payer MEDICARE ==
[2022-06-05] MEDS ORDERED: SODIUM CHLORIDE 0.9% 1,000 ML IV ONE (07:18)
--- NOTE | 2022-06-05 07:26 | ED ---
General Adult HPI - General Chief complaint: Altered Mental Status Stated complaint: Altered mental status Time Seen by Provider: 06/05/22 06:57 Source: patient, EMS, RN notes reviewed Mode of arrival: EMS Limitations: altered mental status - History of Present Illness Initial comments: Patient is a pleasant 81-year-old female presenting to the emergency Department with a change in mental status. Patient admits to feeling somewhat confused. Patient is noticed to be altered by staff this morning. EMS did have concern for fever. Patient denies cough or upper respiratory symptoms. No abdominal pain. Patient omits to feeling dry when questioned. No isolated area of weakness. - Related Data Home Medications Medication Instructions Recorded Confirmed Acetaminophen [Tylenol Extra 1,000 mg PO Q6H PRN 02/03/21 02/03/21 Strength] Aspirin EC [Ecotrin Low Dose] 81 mg PO DAILY 02/03/21 02/03/21 Bismuth Subsalicylate 524 mg PO Q30M PRN MDD 8 02/03/21 02/03/21 [Pepto-Bismol] HOURS Metoprolol Succinate [Toprol XL] 100 mg PO DAILY 02/03/21 02/03/21 OLANZapine [ZyPREXA] 20 mg PO HS 02/03/21 02/03/21 Simvastatin [Zocor] 20 mg PO HS 02/03/21 02/03/21 metFORMIN HCL ER [Glucophage XR] 500 mg PO BID 02/03/21 02/03/21 rOPINIRole HCL [Requip] 0.5 mg PO TID@0900,1500,2100 02/03/21 02/03/21 Previous Rx's Medication Instructions Recorded Melatonin 3 mg PO HS PRN #30 tablet 02/08/21 Sodium Chloride Tab 1 gm PO DAILY #30 tablet 02/08/21 hydrALAZINE HCL [Apresoline] 50 mg PO TID #90 tab 02/08/21 lisinopriL [Zestril] 20 mg PO BID tab 02/08/21 Allergies Allergy/AdvReac Type Severity Reaction Status Date / Time TROY Inhibitors Allergy Unknown Verified 02/05/22 08:04 codeine Allergy Unknown Verified 02/05/22 08:04 NSAIDS (Non-Steroidal Allergy Unknown Verified 02/05/22 08:04 Anti-Inflamma sertraline [From Zoloft] Allergy Unknown Verified 02/05/22 08:04 Sulfa (Sulfonamide Allergy Unknown Verified 02/05/22 08:04 Antibiotics) trazodone Allergy Unknown Verified 02/05/22 08:04 Review of Systems ROS Statement: Those systems with pertinent positive or pertinent negative responses have been documented in the HPI. ROS Other: All systems not noted in ROS Statement are negative. Constitutional: Reports: as per HPI Eyes: Denies: eye pain ENT: Denies: ear pain Respiratory: Denies: cough Cardiovascular: Denies: chest pain Endocrine: Denies: fatigue Gastrointestinal: Denies: abdominal pain Genitourinary: Denies: dysuria Musculoskeletal: Denies: back pain Skin: Denies: rash Neurological: Reports: as per HPI, confusion. Denies: weakness Past Medical History Past Medical History: Asthma, Diabetes Mellitus, Hyperlipidemia, Hypertension History of Any Multi-Drug Resistant Organisms: None Reported Past Surgical History: Heart Catheterization With Stent Past Anesthesia/Blood Transfusion Reactions: No Reported Reaction Date of Last Stent Placement:: Pt unsure Past Psychological History: No Psychological Hx Reported Smoking Status: Never smoker Past Alcohol Use History: None Reported Past Drug Use History: None Reported General Exam Limitations: altered mental status General appearance: alert, in no apparent distress Head exam: Present: normocephalic Eye exam: Present: normal appearance Neck exam: Present: normal inspection Respiratory exam: Present: normal lung sounds bilaterally Cardiovascular Exam: Present: regular rate, normal rhythm GI/Abdominal exam: Present: soft. Absent: tenderness Extremities exam: Present: normal inspection Neurological exam: Present: alert, CN II-XII intact. Absent: motor sensory deficit Expanded Patient oriented to: Present: person, place. Absent: time (States the year is 2021) Motor strength exam: RUE: 5, LUE: 5, RLE: 5, LLE: 5 Eye Response: (4) open spontaneously Motor Response: (6) obeys commands Verbal Response: (4) confused conversation Psychiatric exam: Present: normal affect, normal mood Skin exam: Present: normal color Course Vital Signs 06/05/22 06/05/22 06:56 08:02 Temperature 98.6 F Pulse Rate 80 77 Respiratory 18 20 Rate Blood Pressure 148/61 142/71 O2 Sat by Pulse 96 Oximetry EKG Findings - EKG Results: EKG: interpreted by ERMD (First-degree AV block MN 240), sinus rhythm, normal axis, normal QRS, normal ST/T Medical Decision Making - Medical Decision Making Was pt. sent in by a medical professional or institution (, AIDE, PROTOTYPE MACHINIST, urgent care, hospital, or fpc...) When possible be specific @ -Patient sent by fpc facility Did you speak to anyone other than the patient for history (EMS, parent, family, police, friend...)? What history was obtained from this source @ -No Did you review nursing and triage notes (agree or disagree)? Why? @ -I reviewed and agree with nursing and triage notes Were old charts reviewed (outside hosp., previous admission, EMS record, old EKG, old radiological studies, urgent care reports/EKG's, fpc records)? Report findings @ -No old charts were reviewed Differential Diagnosis (chest pain, altered mental status, abdominal pain women, abdominal pain men, vaginal bleeding, weakness, fever, dyspnea, syncope, headache, dizziness, GI bleed, back pain, seizure, CVA, palpatations, mental health)? @ -Differential Altered Mental Status: Hypoglycemia, DKA, hypercapnia, ETOH, overdose, CO poisoning, trauma, myxedema coma, HTN encephalopathy, infection, encephalitis, psychosis, intercranial hemorrhage, hepatic encephalopathy, meningitis, CVA, this is not meant to be an all-inclusive list EKG interpreted by me (3pts min.). @ -As above X-rays interpreted by me (1pt min.). @ -Chest x-ray reveals no acute process. CT interpreted by me (1pt min.). @ -Report reviewed U/S interpreted by me (1pt. min.). @ -None done What testing was considered but not performed or refused? (CT, X-rays, U/S, labs)? Why? @ -None What meds were considered but not given or refused? Why? @ -None Did you discuss the management of the patient with other professionals (professionals i.e. AIDE Collins, PROTOTYPE MACHINIST, lab, RT, psych nurse, protective services social worker, sales agent trading stamps, teacher, civil preparedness training officer, case briefer)? Give summary @ -Case discussed with Dr. Gonzalez, who will admit covering Dr. Olmos Was smoking cessation discussed for >3mins.? @ -No Was critical care preformed (if so, how long)? @ -No Were there social determinants of health that impacted care today? How? (Homelessness, low income, unemployed, alcoholism, drug addiction, transportation, low edu. Level, literacy, decrease access to med. care, [facility], rehab)? @ -No Was there de-escalation of care discussed even if they declined (Discuss DNR or withdrawal of care, Hospice)? DNR status @ -No What co-morbidities impacted this encounter? (DM, HTN, Smoking, COPD, CAD, Cancer, CVA, ARF, Chemo, Hep., AIDS, mental health diagnosis, sleep apnea, morbid obesity)? @ -None Was patient admitted / discharged? Hospital course, mention meds given and route, prescriptions, significant lab abnormalities, going to OR and other pertinent info. @ -Patient reevaluated and does seem somewhat improved. Patient updated on results and plan. Patient will be admitted for IV fluids and lateral replacement as well as blood sugar control. Admission orders started. Undiagnosed new problem with uncertain prognosis? @ -[Undiagnosed new problem with uncertain prognosis Drug Therapy requiring intensive monitoring for toxicity (Heparin, Nitro, Insulin, Cardizem)? @ -No Were any procedures done? @ -No Diagnosis/symptom? @ -Altered mental status Acute, or Chronic, or Acute on Chronic? @ -Acute Uncomplicated (without systemic symptoms) or Complicated (systemic symptoms)? @ -Uncomplicated at this time Side effects of treatment? @ -No Exacerbation, Progression, or Severe Exacerbation? @ -No Poses a threat to life or bodily function? How? (Chest pain, [place], [place], pneumonia, PE, COPD, DKA, ARF, appy, cholecystitis, CVA, Diverticulitis, Homicidal, Suicidal, threat to staff... and all critical care pts) @ -Unclear - Lab Data Result diagrams: 06/05/22 07:24 06/05/22 07:24 Lab Results 06/05/22 06/05/22 06/05/22 Range/Units 07:24 07:24 07:24 WBC 13.8 H (3.8-10.6) k/uL RBC 4.04 (3.80-5.40) m/uL Hgb 11.7 (11.4-16.0) gm/dL Hct 35.1 (34.0-46.0) % MCV 86.8 (80.0-100.0) fL MCH 29.1 (25.0-35.0) pg MCHC 33.5 (31.0-37.0) g/dL RDW 13.4 (11.5-15.5) % Plt Count 290 (150-450) k/uL MPV 7.9 Neutrophils % 87 % Lymphocytes % 5 % Monocytes % 7 % Eosinophils % 0 % Basophils % 0 % Neutrophils # 12.0 H (1.3-7.7) k/uL Lymphocytes # 0.7 L (1.0-4.8) k/uL Monocytes # 1.0 (0-1.0) k/uL Eosinophils # 0.0 (0-0.7) k/uL Basophils # 0.0 (0-0.2) k/uL PT 10.5 (9.0-12.0) sec INR 1.0 (<1.2) APTT 23.0 (22.0-30.0) sec Sodium (137-145) mmol/L Potassium (3.5-5.1) mmol/L Chloride (98-107) mmol/L Carbon Dioxide (22-30) mmol/L Anion Gap mmol/L BUN (7-17) mg/dL Creatinine (0.52-1.04) mg/dL Est GFR (CKD-EPI)AfAm (>60 ml/min/1.73 sqM) Est GFR (CKD-EPI)NonAf (>60 ml/min/1.73 sqM) Glucose (74-99) mg/dL POC Glucose (mg/dL) (70-110) mg/dL POC Glu Staffing Executive ID Calcium (8.4-10.2) mg/dL Total Bilirubin (0.2-1.3) mg/dL AST (14-36) U/L ALT (4-34) U/L Alkaline Phosphatase (38-126) U/L Troponin I (0.000-0.034) ng/mL Total Protein (6.3-8.2) g/dL Albumin (3.5-5.0) g/dL Urine Color Yellow Urine Appearance Clear (Clear) Urine pH 6.0 (5.0-8.0) Ur Specific [place] 1.017 (1.001-1.035) Urine Protein Negative (Negative) Urine Glucose (UA) 4+ H (Negative) Urine Ketones 1+ H (Negative) Urine Blood Negative (Negative) Urine Nitrite Negative (Negative) Urine Bilirubin Negative (Negative) Urine Urobilinogen <2.0 (<2.0) mg/dL Ur Leukocyte Esterase Negative (Negative) Influenza Type A (PCR) (Not Detectd) Influenza Type B (PCR) (Not Detectd) RSV (PCR) (Not Detectd) SARS-CoV-2 (PCR) (Not Detectd) 06/05/22 06/05/22 06/05/22 Range/Units 07:24 07:24 07:24 WBC (3.8-10.6) k/uL RBC (3.80-5.40) m/uL Hgb (11.4-16.0) gm/dL Hct (34.0-46.0) % MCV (80.0-100.0) fL MCH (25.0-35.0) pg MCHC (31.0-37.0) g/dL RDW (11.5-15.5) % Plt Count (150-450) k/uL MPV Neutrophils % % Lymphocytes % % Monocytes % % Eosinophils % % Basophils % % Neutrophils # (1.3-7.7) k/uL Lymphocytes # (1.0-4.8) k/uL Monocytes # (0-1.0) k/uL Eosinophils # (0-0.7) k/uL Basophils # (0-0.2) k/uL PT (9.0-12.0) sec INR (<1.2) APTT (22.0-30.0) sec Sodium 136 L (137-145) mmol/L Potassium 2.9 L (3.5-5.1) mmol/L Chloride 98 (98-107) mmol/L Carbon Dioxide 29 (22-30) mmol/L Anion Gap 9 mmol/L BUN 25 H (7-17) mg/dL Creatinine 0.84 (0.52-1.04) mg/dL Est GFR (CKD-EPI)AfAm 75 (>60 ml/min/1.73 sqM) Est GFR (CKD-EPI)NonAf 65 (>60 ml/min/1.73 sqM) Glucose 332 H (74-99) mg/dL POC Glucose (mg/dL) (70-110) mg/dL POC Glu Staffing Executive ID Calcium 7.9 L (8.4-10.2) mg/dL Total Bilirubin 0.5 (0.2-1.3) mg/dL AST 33 (14-36) U/L ALT 27 (4-34) U/L Alkaline Phosphatase 129 H (38-126) U/L Troponin I <0.012 (0.000-0.034) ng/mL Total Protein 5.8 L (6.3-8.2) g/dL Albumin 3.4 L (3.5-5.0) g/dL Urine Color Urine Appearance (Clear) Urine pH (5.0-8.0) Ur Specific [place] (1.001-1.035) Urine Protein (Negative) Urine Glucose (UA) (Negative) Urine Ketones (Negative) Urine Blood (Negative) Urine Nitrite (Negative) Urine Bilirubin (Negative) Urine Urobilinogen (<2.0) mg/dL Ur Leukocyte Esterase (Negative) Influenza Type A (PCR) Not Detected (Not Detectd) Influenza Type B (PCR) Not Detected (Not Detectd) RSV (PCR) Not Detected (Not Detectd) SARS-CoV-2 (PCR) Not Detected (Not Detectd) 06/05/22 Range/Units 07:34 WBC (3.8-10.6) k/uL RBC (3.80-5.40) m/uL Hgb (11.4-16.0) gm/dL Hct (34.0-46.0) % MCV (80.0-100.0) fL MCH (25.0-35.0) pg MCHC (31.0-37.0) g/dL RDW (11.5-15.5) % Plt Count (150-450) k/uL MPV Neutrophils % % Lymphocytes % % Monocytes % % Eosinophils % % Basophils % % Neutrophils # (1.3-7.7) k/uL Lymphocytes # (1.0-4.8) k/uL Monocytes # (0-1.0) k/uL Eosinophils # (0-0.7) k/uL Basophils # (0-0.2) k/uL PT (9.0-12.0) sec INR (<1.2) APTT (22.0-30.0) sec Sodium (137-145) mmol/L Potassium (3.5-5.1) mmol/L Chloride (98-107) mmol/L Carbon Dioxide (22-30) mmol/L Anion Gap mmol/L BUN (7-17) mg/dL Creatinine (0.52-1.04) mg/dL Est GFR (CKD-EPI)AfAm (>60 ml/min/1.73 sqM) Est GFR (CKD-EPI)NonAf (>60 ml/min/1.73 sqM) Glucose (74-99) mg/dL POC Glucose (mg/dL) 340 H (70-110) mg/dL POC Glu Staffing Executive ID Alejandrina Castorena Calcium (8.4-10.2) mg/dL Total Bilirubin (0.2-1.3) mg/dL AST (14-36) U/L ALT (4-34) U/L Alkaline Phosphatase (38-126) U/L Troponin I (0.000-0.034) ng/mL Total Protein (6.3-8.2) g/dL Albumin (3.5-5.0) g/dL Urine Color Urine Appearance (Clear) Urine pH (5.0-8.0) Ur Specific [place] (1.001-1.035) Urine Protein (Negative) Urine Glucose (UA) (Negative) Urine Ketones (Negative) Urine Blood (Negative) Urine Nitrite (Negative) Urine Bilirubin (Negative) Urine Urobilinogen (<2.0) mg/dL Ur Leukocyte Esterase (Negative) Influenza Type A (PCR) (Not Detectd) Influenza Type B (PCR) (Not Detectd) RSV (PCR) (Not Detectd) SARS-CoV-2 (PCR) (Not Detectd) Disposition Clinical Impression: Altered mental status, Dehydration, Hypokalemia, Hyperglycemia Disposition: ADMITTED IP TO THIS HOSP Is patient prescribed a controlled substance at d/c from ED?: No Referrals: Fausto Turner MD [Primary Care Provider] - 1-2 days Time of Disposition: 10:58
[2022-06-05 07:36] LABS: Glucose,Whole Blood 340 mg/dL (70-110)
--- NOTE | 2022-06-05 08:00 | CT ---
EXAMINATION TYPE: CT brain wo con DATE OF EXAM: 06/05/2022 COMPARISON: 02/03/2021 HISTORY: Altered mental status. CT DLP: 1139.4 mGycm Automated exposure control for dose reduction was used. FINDINGS: The ventricles, basal cisterns and sulci over the convexities are mildly enlarged and appropriate for the patient's age. There is no mass effect or shift of the midline structures. There is no acute intra or extra-axial hemorrhage. The posterior fossa is grossly normal. The intraorbital contents are normal and symmetric. There are mild to moderate chronic inflammatory changes in the right maxillary sinus. IMPRESSION: 1. No acute bleed or mass effect. 2. Mild age-appropriate atrophy. 3. No interval change. IMPRESSION:
[2022-06-05 08:09] LABS: Basophils % (A) 0 %; Eosinophils % (A) 0 %; HCT 35.1 % (34.0-46.0); HGB 11.7 gm/dL (11.4-16.0); Lymphocytes # (A) 0.7 k/uL (1.0-4.8); Lymphocytes % (A) 5 %; MCH 29.1 pg (25.0-35.0); MCHC 33.5 g/dL (31.0-37.0); MCV 86.8 fL (80.0-100.0); Mean Platelet Volume 7.9; Monocytes % (A) 7 %; Neutrophils % (A) 87 %; Platelet Count 290 k/uL (150-450); RBC 4.04 m/uL (3.80-5.40); RDW 13.4 % (11.5-15.5); WBC 13.8 k/uL (3.8-10.6)
--- NOTE | 2022-06-05 08:10 | XR ---
EXAMINATION TYPE: XR chest 2V DATE OF EXAM: 06/05/2022 COMPARISON: 02/05/2022 HISTORY: Left chest pain and weakness TECHNIQUE: Frontal and lateral views of the chest are obtained. FINDINGS: There is no focal air space opacity, pleural effusion, or pneumothorax seen. The cardiac silhouette size is within normal limits. The osseous structures are intact. IMPRESSION: No acute cardiopulmonary process.
[2022-06-05 08:27] LABS: Prothrombin Time 10.5 sec (9.0-12.0)
[2022-06-05 08:36] LABS: Albumin 3.4 g/dL (3.5-5.0); Calcium 7.9 mg/dL (8.4-10.2); Potassium 2.9 mmol/L (3.5-5.1); Total Bilirubin 0.5 mg/dL (0.2-1.3); Total Protein 5.8 g/dL (6.3-8.2)
[2022-06-05 10:14] LABS: Appearance,Urine Clear (Clear); Bilirubin,Urine Negative (Negative); Blood,Urine Negative (Negative); Color,Urine Yellow; Glucose,Urine (UA) 4+ (Negative); Ketones,Urine 1+ (Negative); Leukocyte Esterase,Urine Negative (Negative); Nitrite,Urine Negative (Negative); Protein,Urine Negative (Negative); Specific Gravity,Urine 1.017 (1.001-1.035); Urobilinogen,Urine <2.0 mg/dL (<2.0)
[2022-06-05] MEDS ORDERED: POTASSIUM CHLORIDE ER 20 MEQ TAB.ER PO STA (10:58)
[2022-06-05] MEDS ORDERED: INSULIN REGULAR 100 UNIT/ML VIAL (IM/SQ) SQ ONE (10:58)
[2022-06-05] MEDS ORDERED: NALOXONE 0.4 MG/ML 1 ML VIAL IV PRN (10:59)
[2022-06-05 12:19] LABS: Glucose,Whole Blood 287 mg/dL (70-110)
[2022-06-05] MEDS: SODIUM CHLORIDE 0.9% 1,000 ML IV SCH (12:31)
[2022-06-05] MEDS ORDERED: ALBUTEROL HFA INHALER INHALATION PRN (14:05)
[2022-06-05] MEDS ORDERED: ACETAMINOPHEN TAB 500 MG TAB PO PRN (14:05)
--- NOTE | 2022-06-05 15:44 | P.CNNES ---
History of Present Illness Consult date: 06/05/22 Requesting physician: Tommy Parson Reason for Consult: AMS History of Present Illness: This is an 81-year-old woman with medical history of Parkinonsism, dementia DM, hypertension, bladder stimulator who presented to the emergency department because of altered mental status, mumbling and difficulty getting up. History is obtained from the patient's brother and [id number] who are at bedside as well as some from medical record. According to the patient's brother, he received a call from [facility] where she resides for the past 2 years around 6 this a.m. today that the patient's mumbling, has worsening confusion and having difficulty getting up. They feel the patient's somewhat more confused today compared to baseline. She's been having worsening of confusion for the past 6 months. Patient denies of any headache, any fevers recently. Denies of any new focal weakness or numbness. Denies of any visual disturbance. According to her family members her confusion is better now compared to when she presented the ED. Patient denies of any focal weakness. It seems that the patient is on numerous medication According to her family members patient was evaluated in the past by Dr. Sifuentes's team and was notified that she has Parkinson's. But patient is following up with a new neurologist (Dr. Cora Huerta) and the she is working out by the patient for Parkinson's whether it's due to medication effect versus actual Parkinson's disease. She is in the process of getting a PET scan. She h ad an MRI of the brain about 3 months ago according to the son was told was unremarkable. Some of the work-up during this hospital visit consisted of: Patient is afebrile. WBC is 13.8K and is predominant neutrophilic. Glucose is 332, Calcium 7.9, K is 2.9 UA is negative for UTI Influenza A/B, RSV, JARROD-CoV-[address] head is reported as No acute bleed or mass effect. Mild age appropriate atrophy. No interval change. I personally reviewed CT and agree with report. Review of Systems Review of system: The 12 point system was reviewed and apparent positive and negative per HPI. Past Medical History Past Medical History: Asthma, Diabetes Mellitus, Hyperlipidemia, Hypertension History of Any Multi-Drug Resistant Organisms: None Reported Past Surgical History: Heart Catheterization With Stent Past Anesthesia/Blood Transfusion Reactions: No Reported Reaction Date of Last Stent Placement:: Pt unsure Past Psychological History: No Psychological Hx Reported Smoking Status: Never smoker Past Alcohol Use History: None Reported Past Drug Use History: None Reported Medications and Allergies Home Medications Medication Instructions Recorded Confirmed Type Acetaminophen [Tylenol Extra 1,000 mg PO Q6H PRN 02/03/21 06/05/22 History Strength] Aspirin EC [Ecotrin Low Dose] 81 mg PO DAILY@69902/03/21 06/05/22 History Bismuth Subsalicylate 524 mg PO Q30M PRN MDD 8 DOSES/02/03/21 06/05/22 History [Pepto-Bismol] HOURS Simvastatin [Zocor] 20 mg PO HS@199902/03/21 06/05/22 History rOPINIRole HCL [Requip] 0.5 mg PO TID@0900,1500,2100 02/03/21 06/05/22 History Albuterol Inhaler [Ventolin Hfa 2 puff INHALATION RT-Q4H PRN 06/05/22 06/05/22 History Inhaler] Cholecalciferol [Vitamin D3 (125 125 mcg PO DAILY@69906/05/22 06/05/22 History Mcg = 5000 Iu)] Clopidogrel [Plavix] 75 mg PO DAILY@69906/05/22 06/05/22 History Coricidin Hbp Cough/Congestion 1 cap PO Q8H PRN 06/05/22 06/05/22 History Cyanocobalamin (Vitamin B-12) 1,000 mcg PO DAILY@69906/05/22 06/05/22 History [Vitamin B-12] Diltiazem Cd [Cardizem CD] 180 mg PO DAILY@69906/05/22 06/05/22 History Escitalopram [Lexapro] 10 mg PO DAILY@69906/05/22 06/05/22 History Esomeprazole Magnesium [NexIUM] 40 mg PO DAILY@69906/05/22 06/05/22 History Ferrous Sulfate [Feosol] 325 mg PO DAILY@69906/05/22 06/05/22 History Furosemide [Lasix] 20 mg PO DAILY@69906/05/22 06/05/22 History Ketoconazole 2% Shampoo [Nizoral] 1 applic TOPICAL MOFR PRN 06/05/22 06/05/22 History Magnesium 200 mg PO DAILY@69906/05/22 06/05/22 History Meclizine HCl [Antivert] 25 mg PO BID@699,199906/05/22 06/05/22 History Melatonin 10 mg PO HS@199906/05/22 06/05/22 History Metoprolol Succinate [Toprol XL] 50 mg PO DAILY@69906/05/22 06/05/22 History OLANZapine 10 mg PO HS@199906/05/22 06/05/22 History OLANZapine 15 mg PO HS@199906/05/22 06/05/22 History Potassium Chloride [Potassium 10 meq PO BID@699,199906/05/22 06/05/22 History Chloride ER] Semaglutide [Ozempic] 0.25 mg SQ MO 06/05/22 06/05/22 History Tetrahydrozoline 0.05% Ophth 1 - 2 drops BOTH EYES DAILY PRN 06/05/22 06/05/22 History [Visine Eye Drops] allopurinoL [Zyloprim] 50 mg PO DAILY@69906/05/22 06/05/22 History cloNIDine HCL [Catapres] 0.1 mg PO BID@799,199906/05/22 06/05/22 History glipiZIDE [Glucotrol] 10 mg PO AC-TID 06/05/22 06/05/22 History hydrALAZINE HCL [Apresoline] 25 mg PO QID 06/05/22 06/05/22 History hydroCHLOROthiazide [Hydrodiuril] 25 mg PO DAILY@0706/05/22 06/05/22 History Allergies Allergy/AdvReac Type Severity Reaction Status Date / Time TROY Inhibitors Allergy Unknown Verified 06/05/22 11:57 codeine Allergy Unknown Verified 06/05/22 11:57 NSAIDS (Non-Steroidal Allergy Unknown Verified 06/05/22 11:57 Anti-Inflamma sertraline [From Zoloft] Allergy Unknown Verified 06/05/22 11:57 Sulfa (Sulfonamide Allergy Unknown Verified 06/05/22 11:57 Antibiotics) trazodone Allergy Unknown Verified 06/05/22 11:57 Physical Examination - Vital Signs Vital Signs: Vital Signs Temp Pulse Resp BP Pulse Ox 01/22/23 12:14 80 18 129/72 98 06/05/22 08:02 77 20 142/71 06/05/22 06:56 98.6 F 80 18 148/61 96 Intake and Output 06/04/22 06/05/22 06/05/22 22:59 06:59 14:59 Other: Weight 72.575 kg GENERAL: The patient is lying in bed and is not in acute distress. CHEST: The heart rate is regular rate rhythm. No murmurs to auscultation. LUNG: Clear to auscultation bilaterally no wheezing noted throughout. Not labored breathing. ABDOMEN/GI: Bowel sounds present in all 4 quadrants. No tenderness to palpation throughout. NEUROLOGICAL: Higher mental function: The patient is awake, alert, oriented to self. With option she stated she is in the hospital. She stated the year is 2021 and month is June. She correctly named objects (pen and watch). She is slow responding. Patient is following simple commands. No aphasia and no neglect. Cranial nerves: The pupils are round, equal and reactive to light. Visual agustin are full to confrontation throughout. Extraocular movement is intact no nystagmus is noted. Facial sensation is normal to touch throughout. The facial strength is normal throughout. Hearing is severely decreased bilaterally to hand rub. Tongue is midline and moved [id number] without any difficulty. No dysarthria is noted. Shoulder shrug is normal bilaterally. Has nonrhythmic head tremor. Motor: The strength is hard to assess individual muscles but no focality over upper and lifting above gravity. She is lifting the right lower above gravity. Has Edema over the left lower (patient stated old). Normal tone and bulk. Has unsustained right arms resting tremor and times with action. Cerebellum: Normal finger to nose bilaterally. Sensation: Sensation is normal to touch throughout. Reflexes (right/left): 1+ throughout. Plantars are mute bilaterally. Results - Laboratory Findings CBC and BMP: 06/05/22 07:24 06/05/22 07:24 Abnormal Lab Findings: Abnormal Labs 06/05/22 06/05/22 06/05/22 07:24 07:24 07:24 WBC 13.8 H Neutrophils # 12.0 H Lymphocytes # 0.7 L Sodium 136 L Potassium 2.9 L BUN 25 H Glucose 332 H POC Glucose (mg/dL) Calcium 7.9 L Alkaline Phosphatase 129 H Total Protein 5.8 L Albumin 3.4 L Urine Glucose (UA) 4+ H Urine Ketones 1+ H 06/05/22 06/05/22 07:34 12:18 WBC Neutrophils # Lymphocytes # Sodium Potassium BUN Glucose POC Glucose (mg/dL) 340 H 287 H Calcium Alkaline Phosphatase Total Protein Albumin Urine Glucose (UA) Urine Ketones Assessment and Plan Assessment: Altered mental status and appears metabolic encephalopathy. Rule out underlying infection (has leukocytosis but is afebrile). EMS felt ?fever but so far afebrile. Is on polypharmacy and can cause underlying confusion Episode of mumbling earlier in the morning at her outside facility: Rule out stroke/possible TIA vs underlying metabolic or infection---currently resolved Hypokalemia Leukocytosis of unknown cause DM and current sugar is in 300's and unsure if reactive or uncontrolled DM Parkinsonianism: being worked-up as outpatient if truly Parkinson vs medication effect Underlying dementia Hypertension--controlled Coronary artery disease status post stent Hyperlipidemia Bladder stimulator Polypharmacy Plan: Ordered a routine EEG because of the confusion. I ordered ammonia level, TSH, vitamin B12 and folate Recommend further investigation for this questionable suspected fever if the patient does have fever recommend ID consultation. Continue neuro checks She cannot obtain MRI of the brain since she has a bladder stimulator. The patient has any further confusion consider repeating a CT of the head down the line rule out any stroke not seen on the initial CT. According to the patient's son patient had MRI of the brain about 3 month ago was told was unremarkable. She is following up with a neurologist for her Parkinsonism and was recommended PET scan as an outpatient and I will was unsure if that was a medication effect vs true Parkinson disease. I feel the patient is on polypharmacy and needs to have her medication modified as an outpatient. Will defer the rest of medical management to primary team. Upon discharge, to follow-up with her neurologist Dr. Cora Huerta within 1-2 weeks. The plan is discussed with patient, her son and [id number] as well nurse. Thank you for the consultation. I has spent a total of 35 minutes with the patient's care, going over history, reviewing labs/imaging and going over plan. Dr. Nichole will start neurology service tomorrow a.m. Time with Patient: Greater than 30
[2022-06-05] MEDS ORDERED: glipiZIDE 10 MG TAB PO SCH (17:30)
[2022-06-05 17:53] LABS: Glucose,Whole Blood 144 mg/dL (70-110)
[2022-06-05] MEDS: hydrALAZINE HCL 25 MG TAB PO SCH ×2 (18:07→21:05)
[2022-06-05] MEDS ORDERED: TETRAHYDROZOLINE 0.05% OPHTH DROPS 15 ML BTL BOTH EYES PRN (19:56)
[2022-06-05] MEDS ORDERED: ONDANSETRON 4 MG/2 ML VIAL IVP PRN (19:57)
[2022-06-05] MEDS ORDERED: DEXTROSE 50% SYRINGE 50 ML IVP PRN ×2 (19:57)
[2022-06-05] MEDS ORDERED: CALCIUM CARBONATE 500 MG CHEWABLE PO PRN (19:57)
[2022-06-05] MEDS ORDERED: LACTULOSE 20 GM/30 ML CUP PO PRN (19:57)
[2022-06-05] MEDS ORDERED: LORazepam 0.5 MG TAB PO PRN (19:57)
[2022-06-05] MEDS ORDERED: OLANZapine 10 MG TAB PO SCH (20:00)
[2022-06-05] MEDS ORDERED: MELATONIN 5 MG TABLET PO SCH (20:00)
--- NOTE | 2022-06-05 20:04 | P.HPIM ---
History of Present Illness H&P Date: 06/05/22 Chief Complaint: Altered mental status This is a 81-year-old patient. Unable to give a good history . Follows with visiting physicians Dr. Turner History is obtained by the EMS run sheet: There are 2 following the patient sitting of the car to the staff. Staff stated that the patient normally alert and oriented to place person and time and date and quickly towards and thoughts. Today the fall patient slow to communicate dizzy unable to stand on her own. Incontinent of feces. Patient is black and tarry. Patient normally requires help with the staff to use the restroom. No focal neurological findings but then found. Patient can give me only a scanty information. Cannot really tell me why she is here. Slow to answer questions. Review of systems: GEN.: Tired EYES: None HEENT: None NECK: None RESPIRATORY: None CARDIOVASCULAR: No chest pain GASTROINTESTINAL: None GENITOURINARY: None MUSCULOSKELETAL: Joint pains LYMPHATICS: None HEMATOLOGICAL: None PSYCHIATRY: A bit forgetful NEUROLOGICAL: No focal weakness Past medical history to include: Asthma, diabetes, hypertension, hyperlipidemia, neuropathy stent in the left carotid Social history: No smoking. No alcohol. Does use a walker. Physical examination: VITAL SIGNS: 98.6, 77, 20, 142/71, 96% room air, upon presentation GENERAL: BMI to 7.5, laying in bed awake, tired. EYES: Pupils equal. Conjunctiva normal. HEENT: External appearance of nose and ears normal, oral cavity grossly normal. NECK: JVD not raised; masses not palpable. HEART: First and second heart sounds are normal; no edema. LUNGS: Respiratory rate normal; clear to auscultation. ABDOMEN: Soft, nontender, liver spleen not palpable, no masses palpable. PSYCH: Patient able to answer simple questions. Can't tell that she has not hospital knows the month thinks that this 2021.l. MUSCULOSKELETAL:No Clubbing/cyanosis;muscles-grossly intact. OA NEUROLOGICAL: Cranial nerves grossly intact; no facial asymmetry, power and sensation grossly intact. LYMPHATICS: No lymph nodes palpable in the axilla and neck INVESTIGATIONS, reviewed in the clinical context: White count 13.8 hemoglobin 11.7 platelets 290 potassium 2.9. 25 creatinine 0.84 Influenza type A/diabetes/RSV/COVID-19: Not detected Troponin I 3 negative EKG tracing personally reviewed by me-normal sinus rhythm. Chest x-ray film personally reviewed by me-questionable infiltrate left base. Assessment and plan: -Patient presents altered mental status with decrease sensorium. This is likely metabolic encephalopathy. Patient may have underlying left basilar pneumonia. We'll start IV ceftriaxone. Also possible dehydration contributing. -Possible dehydration IV fluids -Intermittent asthma Ventolin 2 puffs when necessary Depression Lexapro 10 mg a day GERD PPI -Essential hypertension Cardizem CD 180 mg daily, Toprol-XL 50 mg a day -Diabetes mellitus type 2 Hold oral hypoglycemic. Start Levemir for now. Follow Accu-Cheks. -Hyperuricemia Allopurinol 50 mg day -Restless legs syndrome Requip 0.5 mg 3 times a day -Black tarry stool reported by the EMS report. Note patient is on aspirin and Plavix. Discontinue the same. Continue PPI. Follow H&H. Past Medical History Past Medical History: Asthma, Diabetes Mellitus, Hyperlipidemia, Hypertension Additional Past Medical History / Comment(s): Neuropathy History of Any Multi-Drug Resistant Organisms: None Reported Past Surgical History: Bladder Surgery Additional Past Surgical History / Comment(s): Bladder stimulator, stent in left caritod artery Past Anesthesia/Blood Transfusion Reactions: No Reported Reaction Date of Last Stent Placement:: Pt unsure Past Psychological History: No Psychological Hx Reported Smoking Status: Never smoker Past Alcohol Use History: None Reported Past Drug Use History: None Reported Medications and Allergies Home Medications Medication Instructions Recorded Confirmed Type Acetaminophen [Tylenol Extra 1,000 mg PO Q6H PRN 02/03/21 06/05/22 History Strength] Aspirin EC [Ecotrin Low Dose] 81 mg PO DAILY@0700 02/03/21 06/05/22 History Bismuth Subsalicylate 524 mg PO Q30M PRN MDD 8 DOSES/24 02/03/21 06/05/22 History [Pepto-Bismol] HOURS Simvastatin [Zocor] 20 mg PO HS@199902/03/21 06/05/22 History rOPINIRole HCL [Requip] 0.5 mg PO TID@0900,1500,2100 02/03/21 06/05/22 History Albuterol Inhaler [Ventolin Hfa 2 puff INHALATION RT-Q4H PRN 06/05/22 06/05/22 History Inhaler] Cholecalciferol [Vitamin D3 (125 125 mcg PO DAILY@69906/05/22 06/05/22 History Mcg = 5000 Iu)] Clopidogrel [Plavix] 75 mg PO DAILY@69906/05/22 06/05/22 History Coricidin Hbp Cough/Congestion 1 cap PO Q8H PRN 06/05/22 06/05/22 History Cyanocobalamin (Vitamin B-12) 1,000 mcg PO DAILY@69906/05/22 06/05/22 History [Vitamin B-12] Diltiazem Cd [Cardizem CD] 180 mg PO DAILY@69906/05/22 06/05/22 History Escitalopram [Lexapro] 10 mg PO DAILY@69906/05/22 06/05/22 History Esomeprazole Magnesium [NexIUM] 40 mg PO DAILY@69906/05/22 06/05/22 History Ferrous Sulfate [Feosol] 325 mg PO DAILY@69906/05/22 06/05/22 History Furosemide [Lasix] 20 mg PO DAILY@69906/05/22 06/05/22 History Ketoconazole 2% Shampoo [Nizoral] 1 applic TOPICAL MOFR PRN 06/05/22 06/05/22 History Magnesium 200 mg PO DAILY@69906/05/22 06/05/22 History Meclizine HCl [Antivert] 25 mg PO BID@699,199906/05/22 06/05/22 History Melatonin 10 mg PO HS@199906/05/22 06/05/22 History Metoprolol Succinate [Toprol XL] 50 mg PO DAILY@69906/05/22 06/05/22 History OLANZapine 10 mg PO HS@199906/05/22 06/05/22 History OLANZapine 15 mg PO HS@199906/05/22 06/05/22 History Potassium Chloride [Potassium 10 meq PO BID@699,199906/05/22 06/05/22 History Chloride ER] Semaglutide [Ozempic] 0.25 mg SQ MO 06/05/22 06/05/22 History Tetrahydrozoline 0.05% Ophth 1 - 2 drops BOTH EYES DAILY PRN 06/05/22 06/05/22 History [Visine Eye Drops] allopurinoL [Zyloprim] 50 mg PO DAILY@0700 06/05/22 06/05/22 History cloNIDine HCL [Catapres] 0.1 mg PO BID@0800,199906/05/22 06/05/22 History glipiZIDE [Glucotrol] 10 mg PO AC-TID 06/05/22 06/05/22 History hydrALAZINE HCL [Apresoline] 25 mg PO QID 06/05/22 06/05/22 History hydroCHLOROthiazide [Hydrodiuril] 25 mg PO DAILY@0700 06/05/22 06/05/22 History Allergies Allergy/AdvReac Type Severity Reaction Status Date / Time TROY Inhibitors Allergy Unknown Verified 06/05/22 11:57 codeine Allergy Unknown Verified 06/05/22 11:57 NSAIDS (Non-Steroidal Allergy Unknown Verified 06/05/22 11:57 Anti-Inflamma sertraline [From Zoloft] Allergy Unknown Verified 06/05/22 11:57 Sulfa (Sulfonamide Allergy Unknown Verified 06/05/22 11:57 Antibiotics) trazodone Allergy Unknown Verified 06/05/22 11:57 Physical Exam Vitals: Vital Signs Temp Pulse Pulse Resp BP BP Pulse Ox 06/05/22 18:08 172/86 06/05/22 15:00 98.2 F 65 16 164/83 96 06/05/22 14:00 70 18 150/78 96 06/05/22 13:00 75 18 155/80 97 06/05/22 12:14 80 18 129/72 98 06/05/22 08:02 77 20 142/71 06/05/22 06:56 98.6 F 80 18 148/61 96 Intake and Output 06/05/22 06/05/22 06/05/22 06:59 14:59 22:59 Other: Weight 72.575 kg 72.575 kg Results CBC & Chem 7: 06/05/22 07:24 06/05/22 07:24 Labs: Abnormal Lab Results - Last 24 Hours (Table) 06/05/22 06/05/22 06/05/22 Range/Units 07:24 07:24 07:24 WBC 13.8 H (3.8-10.6) k/uL Neutrophils # 12.0 H (1.3-7.7) k/uL Lymphocytes # 0.7 L (1.0-4.8) k/uL Sodium 136 L (137-145) mmol/L Potassium 2.9 L (3.5-5.1) mmol/L BUN 25 H (7-17) mg/dL Glucose 332 H (74-99) mg/dL POC Glucose (mg/dL) (70-110) mg/dL Calcium 7.9 L (8.4-10.2) mg/dL Alkaline Phosphatase 129 H (38-126) U/L Total Protein 5.8 L (6.3-8.2) g/dL Albumin 3.4 L (3.5-5.0) g/dL Urine Glucose (UA) 4+ H (Negative) Urine Ketones 1+ H (Negative) 06/05/22 06/05/22 06/05/22 Range/Units 07:34 12:18 17:51 WBC (3.8-10.6) k/uL Neutrophils # (1.3-7.7) k/uL Lymphocytes # (1.0-4.8) k/uL Sodium (137-145) mmol/L Potassium (3.5-5.1) mmol/L BUN (7-17) mg/dL Glucose (74-99) mg/dL POC Glucose (mg/dL) 340 H 287 H 144 H (70-110) mg/dL Calcium (8.4-10.2) mg/dL Alkaline Phosphatase (38-126) U/L Total Protein (6.3-8.2) g/dL Albumin (3.5-5.0) g/dL Urine Glucose (UA) (Negative) Urine Ketones (Negative) Thrombosis Risk Factor Assmnt - Choose All That Apply Any of the Below Risk Factors Present?: No Other Risk Factors: No Other congenital or acquired thrombophilia - If yes, enter type in comment: No Thrombosis Risk Factor Assessment Level: Very Low Risk
[2022-06-05 20:58] LABS: Glucose,Whole Blood 244 mg/dL (70-110)
[2022-06-05] MEDS: ENOXAPARIN 40 MG/0.4 ML SYRINGE SQ SCH (21:03)
[2022-06-05] MEDS: MECLIZINE 25 MG TAB PO SCH (21:04)
[2022-06-05] MEDS: ATORVASTATIN 10 MG TAB PO SCH (21:04)
[2022-06-05] MEDS: OLANZapine 7.5 MG TAB PO SCH (21:04)
[2022-06-05] MEDS: cloNIDine HCL 0.1 MG TAB PO SCH (21:04)
[2022-06-05] MEDS: POTASSIUM CHLORIDE ER 10 MEQ TAB.ER.PRT PO SCH (21:04)
[2022-06-05] MEDS: INSULIN DETEMIR (LEVEMIR) 100 UNIT/ML SYR SQ SCH (21:22)
[2022-06-06] MEDS ORDERED: CLOPIDOGREL 75 MG TAB PO SCH (07:00)
[2022-06-06] MEDS ORDERED: ASPIRIN 81 MG PO SCH (07:00)
[2022-06-06 07:04] LABS: Basophils % (A) 0 %; Eosinophils % (A) 1 %; HCT 33.4 % (34.0-46.0); HGB 11.1 gm/dL (11.4-16.0); Lymphocytes # (A) 1.6 k/uL (1.0-4.8); Lymphocytes % (A) 20 %; MCH 28.8 pg (25.0-35.0); MCHC 33.2 g/dL (31.0-37.0); MCV 86.9 fL (80.0-100.0); Mean Platelet Volume 7.5; Monocytes # (A) 0.8 k/uL (0-1.0); Monocytes % (A) 10 %; Neutrophils # (A) 5.4 k/uL (1.3-7.7); Neutrophils % (A) 66 %; Platelet Count 258 k/uL (150-450); RBC 3.84 m/uL (3.80-5.40); RDW 13.6 % (11.5-15.5); WBC 8.1 k/uL (3.8-10.6)
--- NOTE | 2022-06-06 07:22 | XR ---
EXAMINATION TYPE: XR chest 2V DATE OF EXAM: 06/06/2022 COMPARISON: Chest x-ray one day earlier and older studies. HISTORY: Altered mental status and weakness. TECHNIQUE: Frontal and lateral views of the chest are obtained. FINDINGS: There is no suspicious new focal air space opacity, pleural effusion, or pneumothorax seen . The cardiac silhouette size is stable and upper limits of normal with mitral annular calcification s redemonstrated. Slight underlying scoliotic curvature noted. IMPRESSION: No acute process. No significant change from one day earlier.
[2022-06-06 07:47] LABS: African American GFR (CKD) 82 (>60 ml/min/1.73 sqM); Anion Gap 4 mmol/L; Blood Urea Nitrogen 16 mg/dL (7-17); Calcium 7.8 mg/dL (8.4-10.2); Carbon Dioxide 34 mmol/L (22-30); Chloride 103 mmol/L (98-107); Glucose 85 mg/dL (74-99); Non-African American GFR(CKD) 71 (>60 ml/min/1.73 sqM); Potassium 3.1 mmol/L (3.5-5.1); Sodium 141 mmol/L (137-145)
[2022-06-06 08:15] LABS: Glucose,Whole Blood 107 mg/dL (70-110)
[2022-06-06] MEDS: cloNIDine HCL 0.1 MG TAB PO SCH ×2 (08:22→20:48)
[2022-06-06] MEDS: POTASSIUM CHLORIDE ER 10 MEQ TAB.ER.PRT PO SCH ×2 (08:22→20:47)
[2022-06-06] MEDS: MAGNESIUM OXIDE 400 MG TAB PO SCH (08:23)
[2022-06-06] MEDS: hydrALAZINE HCL 25 MG TAB PO SCH ×4 (08:23→21:10)
[2022-06-06] MEDS: allopurinoL 100 MG TAB PO SCH (08:23)
[2022-06-06] MEDS: CHOLECALCIFEROL 125 MCG (5000 IU) TABLET PO SCH (08:23)
[2022-06-06] MEDS: FERROUS SULFATE 325 MG TAB PO SCH (08:23)
[2022-06-06] MEDS: PANTOPRAZOLE 40 MG TABLET PO SCH (08:24)
[2022-06-06] MEDS: CYANOCOBALAMIN 500 MCG TAB PO SCH (08:24)
[2022-06-06] MEDS: INSULIN ASPART (NovoLOG) 100 UNIT/ML VIAL SQ SCH ×3 (08:24→18:41)
[2022-06-06] MEDS: MECLIZINE 25 MG TAB PO SCH (08:24)
[2022-06-06] MEDS: METOPROLOL SUCCINATE (ER) 50 MG TAB.ER.24H PO SCH (08:24)
[2022-06-06] MEDS: hydroCHLOROthiazide 25 MG TAB PO SCH (08:24)
[2022-06-06] MEDS: SODIUM CHLORIDE 0.9% 1,000 ML IV SCH ×2 (08:26→15:29)
[2022-06-06] MEDS: ESCITALOPRAM 10 MG TAB PO SCH (08:26)
[2022-06-06] MEDS: DILTIAZEM CD 180 MG CAP.ER.24H PO SCH (08:26)
[2022-06-06] MEDS: FUROSEMIDE 20 MG TAB PO SCH (08:28)
[2022-06-06] MEDS ORDERED: POTASSIUM CHLORIDE ER 20 MEQ TAB.ER PO STA (11:02)
[2022-06-06 11:24] LABS: Glucose,Whole Blood 269 mg/dL (70-110)
--- NOTE | 2022-06-06 12:57 | EEG ---
ELECTROENCEPHALOGRAM REPORT PREAMBLE: This is an 81-year-old female with history of dementia, Parkinson's, diabetes, hypertension, has mumbling and difficulty getting up. She has worsening of confusion for the past 6 months. CURRENT MEDICATIONS: 1. Zyloprim. 2. Lipitor. 3. Catapres. 4. Lovenox. 5. Lexapro. 6. Lasix. 7. HydroDiuril. 8. Insulin. 9. Toprol. 10.Zyprexa. 11.Zofran. 12.Melatonin. EEG FINDINGS: This is a 21-channel digital EEG recorded with video component, utilizing 10/20 international system with referential and bipolar montages. Background consists of well-developed, moderately well regulated, mixed frequencies of 6 to 7 hertz theta with some alpha activity seen in bihemispheric region. The patient is drowsy during most of the study. Some myogenic activity related to jaw movement was noted particularly during photic stimulation. A photic driving response was not clearly seen. Different stages of sleep were not seen. Left temporal sharp-appearing waves were seen. No electrographic seizure was recorded. EKG channel showed no obvious arrhythmia. IMPRESSION: This is an abnormal EEG due to: 1. Background slowing of [id number]-nzhzieow degree, suggestive of generalized cerebral dysfunction as can be seen with encephalopathy related to vascular, degenerative, or toxic metabolic causes. 2. Rare sharp-appearing waves were seen in the left temporal region. These did not appear clearly epileptiform. Recommend a prolonged EEG for further evaluation if your suspicion for seizures is high. No electrographic seizures were recorded. MMODL / IJN: [id number] /
[2022-06-06 17:42] LABS: Glucose,Whole Blood 203 mg/dL (70-110)
--- NOTE | 2022-06-06 17:51 | XR ---
EXAMINATION TYPE: XR wrist complete LT DATE OF EXAM: 06/06/2022 5:44 PM INDICATION: Patient age:Female; 81 years old; Reason for study: pain; COMPARISON: None TECHNIQUE: left wrist was examined in the. Frontal, navicular, lateral, and oblique. FINDINGS: Multifocal degeneration changes most pronounced first digit carpometacarpal joint and metac arpophalangeal joints. No displaced fracture definitely visualized. No acute osseous pathology, joint dislocation, or joint effusion. No evidence of any soft tissue swelling is seen. IMPRESSION: Multifocal degeneration without evidence for acute fracture. Findings most pronounced in the first di git.
--- NOTE | 2022-06-06 19:23 | P.PN ---
Progress Note - Text Progress Note Date: 06/06/22 Chief Complaint: Altered mental status This is a 81-year-old patient. Unable to give a good history . Follows with visiting physicians Dr. Turner History is obtained by the EMS run sheet: There are 2 following the patient sitting of the car to the staff. Staff stated that the patient normally alert and oriented to place person and time and date and quickly towards and thoughts. Today the fall patient slow to communicate dizzy unable to stand on her own. Incontinent of feces. Patient is black and tarry. Patient normally requires help with the staff to use the restroom. No focal neurological findings but then found. Patient can give me only a scanty information. Cannot really tell me why she is here. Slow to answer questions. June 06: Patient seen this morning. Rather lethargic. Not really able to eat. Getting IV ceftriaxone for pneumonia. EEG negative for epilepsy activity. IV fluids. Given that patient rather lethargic. We will decrease the p.m. dose of Zyprexa to 50 mg. Stopped 10 mg of melatonin. Psychiatry consulted. GI service is available in the hospital today. Consult. Also spoke to patient brother and POA legal guardian Mr. Baron -updated. Questions answered in detail. He wishes the patient to be DO NOT RESUSCITATE. Active Medications Acetaminophen (Acetaminophen Tab 500 Mg Tab) 1,000 mg PO Q6H PRN PRN Reason: Fever and/ or Pain Last Admin: 06/06/22 15:59 Dose: 1,000 mg Albuterol Sulfate (Albuterol Hfa Inhaler) 2 puff INHALATION RT-Q4H PRN PRN Reason: Shortness Of Breath Allopurinol (Allopurinol 100 Mg Tab) 50 mg PO DAILY@0700 [facility] Last Admin: 06/06/22 08:23 Dose: 50 mg Atorvastatin Calcium (Atorvastatin 10 Mg Tab) 10 mg PO HS@2000 [facility] Last Admin: 06/05/22 21:04 Dose: 10 mg Calcium Carbonate/Glycine (Calcium Carbonate 500 Mg Chewable) 1,000 mg PO Q4HR PRN PRN Reason: Dyspepsia Cholecalciferol (Cholecalciferol 125 Mcg (5000 Iu) Tablet) 125 mcg PO DAILY@0700 [facility] Last Admin: 06/06/22 08:23 Dose: 125 mcg Clonidine (Clonidine Hcl 0.1 Mg Tab) 0.1 mg PO BID@0800,1999 [facility] Last Admin: 06/06/22 08:22 Dose: 0.1 mg Cyanocobalamin (Cyanocobalamin 500 Mcg Tab) 1,000 mcg PO DAILY@699 [facility] Last Admin: 06/06/22 08:24 Dose: 1,000 mcg Dextrose/Water (Dextrose 50% Syringe 50 Ml) 25 ml IVP PER PROTOCOL PRN; Protocol PRN Reason: Hypoglycemia Dextrose/Water (Dextrose 50% Syringe 50 Ml) 50 ml IVP PER PROTOCOL PRN; Protocol PRN Reason: Hypoglycemia Diltiazem HCl (Diltiazem Cd 180 Mg Cap.Er.24h) 180 mg PO DAILY@699 [facility] Last Admin: 06/06/22 08:26 Dose: 180 mg Enoxaparin Sodium (Enoxaparin 40 Mg/0.4 Ml Syringe) 40 mg SQ DAILY@1999 [facility] Last Admin: 06/05/22 21:03 Dose: 40 mg Escitalopram Oxalate (Escitalopram 10 Mg Tab) 10 mg PO DAILY@699 [facility] Last Admin: 06/06/22 08:26 Dose: 10 mg Ferrous Sulfate (Ferrous Sulfate 325 Mg Tab) 325 mg PO DAILY@699 [facility] Last Admin: 06/06/22 08:23 Dose: 325 mg Furosemide (Furosemide 20 Mg Tab) 20 mg PO DAILY@699 [facility] Last Admin: 06/06/22 08:28 Dose: 20 mg Hydralazine HCl (Hydralazine Hcl 25 Mg Tab) 25 mg PO QID [facility] Last Admin: 06/06/22 18:41 Dose: 25 mg Hydrochlorothiazide (Hydrochlorothiazide 25 Mg Tab) 25 mg PO DAILY@699 [facility] Last Admin: 06/06/22 08:24 Dose: 25 mg Sodium Chloride (Saline 0.9%) 1,000 mls @ 75 mls/hr IV .[id number] [facility] Last Admin: 06/06/22 15:29 Dose: Not Given Ceftriaxone Sodium 1 gm/ (Sodium Chloride) 50 mls @ 100 mls/hr IVPB Q12HR [facility]; Protocol Last Admin: 06/06/22 08:24 Dose: 100 mls/hr Insulin Aspart (Insulin Aspart (Novolog) 100 Unit/Ml Vial) 0 unit SQ AC-TID [facility]; Protocol Last Admin: 06/06/22 18:41 Dose: 2 unit Insulin Detemir (Insulin Detemir (Levemir) 100 Unit/Ml Syr) 16 unit SQ HS [facility] Last Admin: 06/05/22 21:22 Dose: 16 unit Lactulose (Lactulose 20 Gm/30 Ml Cup) 20 gm PO DAILY PRN PRN Reason: Constipation Lorazepam (Lorazepam 0.5 Mg Tab) 0.5 mg PO Q6HR PRN PRN Reason: Anxiety Magnesium Oxide (Magnesium Oxide 400 Mg Tab) 200 mg PO DAILY@0700 [facility] Last Admin: 06/06/22 08:23 Dose: 200 mg Metoprolol Succinate (Metoprolol Succinate (Er) 50 Mg Tab.Er.24h) 50 mg PO DAILY@0700 [facility] Last Admin: 06/06/22 08:24 Dose: 50 mg Naloxone HCl (Naloxone 0.4 Mg/Ml 1 Ml Vial) 0.2 mg IV Q2M PRN PRN Reason: Opioid Reversal Olanzapine (Olanzapine 7.5 Mg Tab) 15 mg PO HS@1999 [facility] Last Admin: 06/05/22 21:04 Dose: 15 mg Ondansetron HCl (Ondansetron 4 Mg/2 Ml Vial) 4 mg IVP Q8HR PRN PRN Reason: Nausea And Vomiting Pantoprazole Sodium (Pantoprazole 40 Mg Tablet) 40 mg PO DAILY@0700 [facility] Last Admin: 06/06/22 08:24 Dose: 40 mg Potassium Chloride (Potassium Chloride Er 10 Meq Tab.Er.Prt) 10 meq PO BID@07,1999 [facility] Last Admin: 06/06/22 08:22 Dose: 10 meq Ropinirole HCl (Ropinirole Hcl 0.25 Mg Tab) 0.5 mg PO TID@0900,1500,2100 [facility] Last Admin: 06/06/22 15:59 Dose: 0.5 mg Tetrahydrozoline HCl (Tetrahydrozoline 0.05% Ophth Drops 15 Ml Btl) 1 - 2 drops BOTH EYES DAILY PRN PRN Reason: Dry Eye(s) Past medical history to include: Asthma, diabetes, hypertension, hyperlipidemia, neuropathy stent in the left carotid Social history: No smoking. No alcohol. Does use a walker. Physical examination: VITAL SIGNS: 98.3, 35, 18, 1 69 x 70, 95% room air GENERAL: BMI to 7.5, laying in bed awake, tired. EYES: Pupils equal. Conjunctiva normal. HEENT: External appearance of nose and ears normal, oral cavity grossly normal. NECK: JVD not raised; masses not palpable. HEART: First and second heart sounds are normal; no edema. LUNGS: Respiratory rate normal; clear to auscultation. ABDOMEN: Soft, nontender, liver spleen not palpable, no masses palpable. PSYCH: Patient able to answer simple questions. Can't tell that she has not hospital knows the month thinks that this 2021.l. MUSCULOSKELETAL:No Clubbing/cyanosis;muscles-grossly intact. OA NEUROLOGICAL: Cranial nerves grossly intact; no facial asymmetry, power and sensation grossly intact. LYMPHATICS: No lymph nodes palpable in the axilla and neck INVESTIGATIONS, reviewed in the clinical context: White count 13.8 hemoglobin 11.7 platelets 290 potassium 2.9. 25 creatinine 0.84 Influenza type A/diabetes/RSV/COVID-19: Not detected Troponin I 3 negative EKG tracing personally reviewed by me-normal sinus rhythm. Chest x-ray film personally reviewed by me-questionable infiltrate left base. Assessment and plan: -Patient presents altered mental status with decrease sensorium. This is likely metabolic encephalopathy. may have underlying left basilar pneumonia. IV ceftriaxone. Also decrease p.m. dose of Zyprexa to 15 mg daily at bedtime. DC 10 mg dose of melatonin. Consult psychiatry to assist dose of medications. -Possible dehydration IV fluids -Chronic insomnia Patient is very lethargic. DC melatonin. Patient is on Zyprexa. -Intermittent asthma Ventolin 2 puffs when necessary Depression Lexapro 10 mg a day. Zyprexa. Reduced to 50 mg daily at bedtime. GERD PPI -Essential hypertension Cardizem CD 180 mg daily, Toprol-XL 50 mg a day -Diabetes mellitus type 2 Hold oral hypoglycemic. Start Levemir for now. Follow Accu-Cheks. -Hyperuricemia Allopurinol 50 mg day -Restless legs syndrome Requip 0.5 mg 3 times a day -Black tarry stool reported by the EMS report. Note patient is on aspirin and Plavix. Discontinue the same. Continue PPI. Consult GI available this week. Advance care planning: Spoke to patient's brother,danisha Nguyen. Patient's overall clinical condition updated. Several questions answered. He is the power of traffic law attorney. He wishes the patient to be DO NOT RESUSCITATE. Ordered. Questions answered. ACP time taken about 20 minutes
[2022-06-06 20:45] LABS: Glucose,Whole Blood 271 mg/dL (70-110)
[2022-06-06] MEDS: ATORVASTATIN 10 MG TAB PO SCH (20:47)
[2022-06-06] MEDS: OLANZapine 7.5 MG TAB PO SCH (20:48)
[2022-06-06] MEDS: ENOXAPARIN 40 MG/0.4 ML SYRINGE SQ SCH (20:48)
[2022-06-06] MEDS: INSULIN DETEMIR (LEVEMIR) 100 UNIT/ML SYR SQ SCH (20:49)
[2022-06-07] MEDS: allopurinoL 100 MG TAB PO SCH (06:17)
[2022-06-07] MEDS: MAGNESIUM OXIDE 400 MG TAB PO SCH (06:18)
[2022-06-07] MEDS: hydroCHLOROthiazide 25 MG TAB PO SCH (06:18)
[2022-06-07] MEDS: FERROUS SULFATE 325 MG TAB PO SCH (06:18)
[2022-06-07] MEDS: CYANOCOBALAMIN 500 MCG TAB PO SCH (06:18)
[2022-06-07] MEDS: FUROSEMIDE 20 MG TAB PO SCH (06:18)
[2022-06-07] MEDS: METOPROLOL SUCCINATE (ER) 50 MG TAB.ER.24H PO SCH (06:18)
[2022-06-07] MEDS: CHOLECALCIFEROL 125 MCG (5000 IU) TABLET PO SCH (06:18)
[2022-06-07] MEDS: PANTOPRAZOLE 40 MG TABLET PO SCH (06:18)
[2022-06-07] MEDS: POTASSIUM CHLORIDE ER 10 MEQ TAB.ER.PRT PO SCH ×2 (06:18→20:25)
[2022-06-07] MEDS: DILTIAZEM CD 180 MG CAP.ER.24H PO SCH (06:19)
[2022-06-07] MEDS: ESCITALOPRAM 10 MG TAB PO SCH (06:19)
[2022-06-07] MEDS: SODIUM CHLORIDE 0.9% 1,000 ML IV SCH ×3 (06:25→20:27)
[2022-06-07 07:44] LABS: Glucose,Whole Blood 117 mg/dL (70-110)
[2022-06-07] MEDS: INSULIN ASPART (NovoLOG) 100 UNIT/ML VIAL SQ SCH ×3 (08:15→18:10)
[2022-06-07] MEDS: hydrALAZINE HCL 25 MG TAB PO SCH ×4 (08:19→23:05)
[2022-06-07] MEDS: cloNIDine HCL 0.1 MG TAB PO SCH ×2 (08:19→20:25)
[2022-06-07 11:23] LABS: Glucose,Whole Blood 239 mg/dL (70-110)
--- NOTE | 2022-06-07 12:08 | P.PN ---
Subjective Progress Note Date: 06/06/22 Patient initially seen by Dr. Alon Llamas. Please refer to his note for details. Patient is a 81-year-old female with history of dementia, came because of confusion, mumbling. I spoke to patient's brother who is the legal guardian on the phone. He mentions that patient lives in assisted living [facility]. She was sent to the hospital because she was mumbling, couldn't stand and she had black tarry stools. Patient does have history of carotid stents and bladder stimulator implant. No history of seizures. Patient used to follow with Dr. Bey, but now is in the process of seeing Dr. Cora Huerta in [facility]. Patient is scheduled for some PET scan. Objective - Vital Signs Vital signs: Vital Signs Temp 98.3 F 06/06/22 12:53 Pulse 75 06/06/22 12:53 Resp 18 06/06/22 12:53 BP 169/70 06/06/22 12:53 Pulse Ox 95 06/06/22 12:53 FiO2 Intake & Output 06/05/22 06/06/22 06/06/22 18:59 06:59 18:59 Intake Total 450 Balance 450 Weight 72.575 kg Intake: Oral 450 Other: Voiding Method Bedside Commode # Voids 2 1 - Exam Patient is an elderly female, sitting in the recliner, no acute distress. Patient is extremely hard of hearing. Patient is alert awake fairly well oriented. Patient knows it is and of May and the year she states his 2021. She thinks that she is in [facility]. She says that she is in the building, but "not in the hospital I'm affiliated with". She knows it's a medical building but not a hospital. Speech and language functions are normal. Patient can name and repeat very well. No aphasia or dysarthria. Attention, concentration and fund of knowledge is li mited. On cranial nerve examination, pupils are equal very small about 2 mm, not clearly reacting to light. Her visual agustin are full on confrontation, with no neglect on double simultaneous stimulation. Extraocular muscles are intact with no nystagmus. Face is symmetric, tongue protrudes to the midline. Palatal elevation and sensation normal, hearing is severely decreased and shoulder shrug normal, facial sensation normal. On muscle strength testing, there is no pronator drift. The strength is (right/left) deltoid 5/5, triceps 5/4+, biceps 5/4, estate manager 5/5-4+. The left arm weakness was quite related to the pain in the left wrist therefore not able to provide full effort. Hip flexion 4/4-3+, ankle dorsiflexion 5/5. Patient is very tremulous. Deep tendon reflexes are symmetric biceps 2, brachioradialis 2, knees 2, ankles 1 and plantars are flat bilaterally. Sensory to touch is equal with no neglect on double simultaneous stimulation. Cerebellar function showed no ataxia for [id number] testing. No dysdiadochokinesia. No ataxia for invf-wy-[id number] testing on either side. Tone is mild to moderately increased bilaterally and bulk of muscles normal. Gait deferred.. On general examination, there is no carotid bruit or murmur, S1-S2 audible. Chest is clear on consultation. Abdomen is soft nontender. No organomegaly, bowel sounds present. Patient has positive peripheral edema. - Labs CBC & Chem 7: 06/06/22 06:00 06/06/22 06:00 Labs: Abnormal Lab Results - Last 24 Hours (Table) 06/05/22 06/05/22 06/05/22 Range/Units 16:21 17:51 20:55 Hgb (11.4-16.0) gm/dL Hct (34.0-46.0) % Potassium (3.5-5.1) mmol/L Carbon Dioxide (22-30) mmol/L POC Glucose (mg/dL) 144 H 244 H (70-110) mg/dL Calcium (8.4-10.2) mg/dL Vitamin B12 2768.0 H (200.0-944.0) pg/mL Procalcitonin (0.02-0.09) ng/mL 06/06/22 06/06/22 06/06/22 Range/Units 06:00 06:00 06:00 Hgb 11.1 L (11.4-16.0) gm/dL Hct 33.4 L (34.0-46.0) % Potassium 3.1 L (3.5-5.1) mmol/L Carbon Dioxide 34 H (22-30) mmol/L POC Glucose (mg/dL) (70-110) mg/dL Calcium 7.8 L (8.4-10.2) mg/dL Vitamin B12 (200.0-944.0) pg/mL Procalcitonin 0.15 H (0.02-0.09) ng/mL 06/06/22 Range/Units 11:15 Hgb (11.4-16.0) gm/dL Hct (34.0-46.0) % Potassium (3.5-5.1) mmol/L Carbon Dioxide (22-30) mmol/L POC Glucose (mg/dL) 269 H (70-110) mg/dL Calcium (8.4-10.2) mg/dL Vitamin B12 (200.0-944.0) pg/mL Procalcitonin (0.02-0.09) ng/mL Microbiology - Last 24 Hours (Table) 06/05/22 09:00 Blood Culture - Preliminary Blood No Growth after 24 hours 06/05/22 08:45 Blood Culture - Preliminary Blood No Growth after 24 hours Assessment and Plan Assessment: Altered mental status and appears metabolic encephalopathy. Rule out underlying infection (has leukocytosis but is afebrile). EMS felt ?fever but so far afebrile. Is on polypharmacy and can cause underlying confusion Episode of mumbling earlier in the morning at her outside facility: Rule out stroke/possible TIA vs underlying metabolic or infection---currently resolved Hypokalemia Leukocytosis of unknown cause DM and current sugar is in 300's and unsure if reactive or uncontrolled DM Parkinsonianism: being worked-up as outpatient if truly Parkinson vs medication effect Underlying dementia Hypertension--controlled Coronary artery disease status post stent Hyperlipidemia Bladder stimulator Polypharmacy Plan: EEG was performed, and was abnormal due to background slowing of mild to moderate degree, suggestive of generalized cerebral dysfunction as can been seen with encephalopathy related to vascular, degenerative TOXIC metabolic causes. There are rare sharp-appearing waves seen in the left temporal region. These did not appear clearly epileptiform. Recommend a prolonged EEG for further evaluation if your suspicion for seizures is high. Patient never has any history of seizures. I would hold off on any antiepileptic medication. Ammonia level <9, TSH 2.12, vitamin B12 2768 and folate 18.8, all normal She cannot obtain MRI of the brain since she has a bladder stimulator. Repeat CT head, only if any clinical symptoms of CVA. At present none. According to the patient's son patient had MRI of the brain about 3 month ago was told was unremarkable. She is following up with a neurologist for her Parkinsonism and was recommended PET scan as an outpatient and I will was unsure if that was a medication effect vs true Parkinson disease. I feel the patient is on polypharmacy and needs to have her medication modified as an outpatient. GI on board for "black tarry stools". Patient was on aspirin 81 mg and Plavix 75 mg, currently on hold. Resume antiplatelet medications when medically cl eared. Discussed with patient's brother on the phone.
--- NOTE | 2022-06-07 12:42 | P.CONS ---
History of Present Illness - Reason for Consult Consult date: 06/07/22 Black stools Requesting physician: Lang Gonzalez - Chief Complaint Altered mental status - History of Present Illness This is a pleasant 81-year-old female who appears hard of hearing who was brought in for concerns for altered mental status changes. Apparently the patie nt did have a fever when EMS picked her up and according to primary medicines no EMS reported a black tarry stool. Gastroenterology was consulted for black stools. Patient was seen and examined and states that she has had no black stool and she is known. No abdominal pain, nausea or vomiting. No previous history of peptic ulcer disease, EGD or colonoscopy. She does state that she takes Pepto to the small as needed for upset stomach, she denies any anticoagulation or NSAID use. States she uses Tylenol for aches and pains. On admission hemoglobin was 11.7 with a repeat yesterday of 11.1. Nursing is reporting no black stools. She was also noted on admission to have a potassium of 2.9 with replacement. She is denying any epigastric pain, no abdominal pain, no nausea or vomiting. Review of Systems REVIEW OF SYSTEMS: CARDIOPULMONARY: No chest pain or shortness of breath. Gastrointestinal: No epigastric or abdominal pain. No nausea or vomiting. No hematemesis, coffee-ground emesis. No rectal bleeding, or melena. GENITOURINARY: No dysuria or hematuria. MUSCULOSKELETAL: Reports normal range of motion., Joint pain. SKIN: No rashes. No jaundice. ENDOCRINE: No chills, fevers. No excessive weight gain or loss. No polydipsia or polyuria. PSYCHIATRIC: Unremarkable. NEUROLOGY: No change in mental status. Denies dizziness, headache. ENT: Vision unremarkable. CONSTITUTIONAL: No recent weight loss. No fever, chills, night sweats. Past Medical History Past Medical History: Asthma, Diabetes Mellitus, Hyperlipidemia, Hypertension Additional Past Medical History / Comment(s): Neuropathy History of Any Multi-Drug Resistant Organisms: None Reported Past Surgical History: Bladder Surgery Additional Past Surgical History / Comment(s): Bladder stimulator, stent in left caritod artery Past Anesthesia/Blood Transfusion Reactions: No Reported Reaction Date of Last Stent Placement:: Pt unsure Past Psychological History: No Psychological Hx Reported Smoking Status: Never smoker Past Alcohol Use History: None Reported Past Drug Use History: None Reported Medications and Allergies Home Medications Medication Instructions Recorded Confirmed Type Acetaminophen [Tylenol Extra 1,000 mg PO Q6H PRN 02/03/21 06/05/22 History Strength] Aspirin EC [Ecotrin Low Dose] 81 mg PO DAILY@69902/03/21 06/05/22 History Bismuth Subsalicylate 524 mg PO Q30M PRN MDD 8 DOSES/02/03/21 06/05/22 History [Pepto-Bismol] HOURS Simvastatin [Zocor] 20 mg PO HS@199902/03/21 06/05/22 History rOPINIRole HCL [Requip] 0.5 mg PO TID@0900,1500,2100 02/03/21 06/05/22 History Albuterol Inhaler [Ventolin Hfa 2 puff INHALATION RT-Q4H PRN 06/05/22 06/05/22 History Inhaler] Cholecalciferol [Vitamin D3 (125 125 mcg PO DAILY@69906/05/22 06/05/22 History Mcg = 5000 Iu)] Clopidogrel [Plavix] 75 mg PO DAILY@69906/05/22 06/05/22 History Coricidin Hbp Cough/Congestion 1 cap PO Q8H PRN 06/05/22 06/05/22 History Cyanocobalamin (Vitamin B-12) 1,000 mcg PO DAILY@69906/05/22 06/05/22 History [Vitamin B-12] Diltiazem Cd [Cardizem CD] 180 mg PO DAILY@69906/05/22 06/05/22 History Escitalopram [Lexapro] 10 mg PO DAILY@69906/05/22 06/05/22 History Esomeprazole Magnesium [NexIUM] 40 mg PO DAILY@69906/05/22 06/05/22 History Ferrous Sulfate [Feosol] 325 mg PO DAILY@69906/05/22 06/05/22 History Furosemide [Lasix] 20 mg PO DAILY@69906/05/22 06/05/22 History Ketoconazole 2% Shampoo [Nizoral] 1 applic TOPICAL MOFR PRN 06/05/22 06/05/22 History Magnesium 200 mg PO DAILY@69906/05/22 06/05/22 History Meclizine HCl [Antivert] 25 mg PO BID@0700,199906/05/22 06/05/22 History Melatonin 10 mg PO HS@199906/05/22 06/05/22 History Metoprolol Succinate [Toprol XL] 50 mg PO DAILY@0700 06/05/22 06/05/22 History OLANZapine 10 mg PO HS@199906/05/22 06/05/22 History OLANZapine 15 mg PO HS@199906/05/22 06/05/22 History Potassium Chloride [Potassium 10 meq PO BID@07,199906/05/22 06/05/22 History Chloride ER] Semaglutide [Ozempic] 0.25 mg SQ MO 06/05/22 06/05/22 History Tetrahydrozoline 0.05% Ophth 1 - 2 drops BOTH EYES DAILY PRN 06/05/22 06/05/22 History [Visine Eye Drops] allopurinoL [Zyloprim] 50 mg PO DAILY@0700 06/05/22 06/05/22 History cloNIDine HCL [Catapres] 0.1 mg PO BID@08,199906/05/22 06/05/22 History glipiZIDE [Glucotrol] 10 mg PO AC-TID 06/05/22 06/05/22 History hydrALAZINE HCL [Apresoline] 25 mg PO QID 06/05/22 06/05/22 History hydroCHLOROthiazide [Hydrodiuril] 25 mg PO DAILY@0700 06/05/22 06/05/22 History Allergies Allergy/AdvReac Type Severity Reaction Status Date / Time TROY Inhibitors Allergy Unknown Verified 06/05/22 11:57 codeine Allergy Unknown Verified 06/05/22 11:57 NSAIDS (Non-Steroidal Allergy Unknown Verified 06/05/22 11:57 Anti-Inflamma sertraline [From Zoloft] Allergy Unknown Verified 06/05/22 11:57 Sulfa (Sulfonamide Allergy Unknown Verified 06/05/22 11:57 Antibiotics) trazodone Allergy Unknown Verified 06/05/22 11:57 Physical Exam Vitals: Vital Signs Temp Pulse Resp BP BP Pulse Ox 06/07/22 07:40 97.4 F L 69 18 160/78 97 06/07/22 06:15 88 136/79 06/07/22 02:46 168/78 06/07/22 02:45 192/95 01/24/23 02:00 97.4 F L 66 16 98 06/06/22 20:00 97.5 F L 74 16 149/81 96 06/06/22 12:53 98.3 F 75 18 169/70 95 Intake and Output 06/06/22 06/07/22 06/07/22 22:59 06:59 14:59 Other: Voiding Method Toilet # Voids 1 General appearance: The patient is alert, oriented, appears in no acute distress. HET: Head is normocephalic and atraumatic. Conjunctiva pink. Sclera anicteric. Neck: Supple without lymphadenopathy. Trachea midline. Heart: S1 S2. Regular rate and rhythm. Lungs: Clear to auscultation. Abdomen: Soft, nontender, nondistended with bowel sounds. No guarding or rigidity. Skin: No rashes. No jaundice. Extremities: Normal skin color and turgor. No pedal edema. Neurological: No focal deficits. Alert and oriented. Results CBC & Chem 7: 06/06/22 06:00 06/06/22 06:00 Labs: Abnormal Lab Results - Last 24 Hours (Table) 06/06/22 06/06/22 06/06/22 Range/Units 06:00 11:15 17:37 POC Glucose (mg/dL) 269 H 203 H (70-110) mg/dL Procalcitonin 0.15 H (0.02-0.09) ng/mL 06/06/22 06/07/22 Range/Units 20:42 07:32 POC Glucose (mg/dL) 271 H 117 H (70-110) mg/dL Procalcitonin (0.02-0.09) ng/mL Microbiology - Last 24 Hours (Table) 06/05/22 09:00 Blood Culture - Preliminary Blood No Growth after 24 hours 06/05/22 08:45 Blood Culture - Preliminary Blood No Growth after 24 hours Assessment and Plan (1) Black stool Narrative/Plan: 81-year-old female who is brought in by EMS supposedly reporting that patient had black stool however was brought in for altered mental status changes noted to have electrolyte imbalance and dehydration. Gastroenterology consulted for black stools however patient and nursing reporting no black stools. Patient does state that she does take Pepto-Bismol as needed. No previous history of peptic ulcer disease or GI bleed. No previous EGD colonoscopy. Hemoglobin stable from 11.7-11.1 today. No current evidence of acute GI bleed. Current Visit: Yes Status: Acute Code(s): K92.1 - MELENA SNOMED Code(s): 080661598 (2) Altered mental status Current Visit: Yes Status: Acute Code(s): R41.82 - ALTERED MENTAL STATUS, UNSPECIFIED SNOMED Code(s): 411924982 (3) Hypokalemia Current Visit: Yes Status: Acute Code(s): E87.6 - HYPOKALEMIA SNOMED Code(s): 31035808 Plan: 1. Continue symptomatic and supportive care 2. Continue medical management 3. Protonix 40 mg daily for GI prophylaxis 4. No plans on endoscopic evaluation at this time 5. Continue to monitor for signs of GI bleed 6. Patient is stable for discharge from a gastroenterology standpoint. Thank you for this consultation, we will continue to follow. Dr. Melany Pathak I agree with the dictator's note, documented as a scribe by Malorie Joyner.
--- NOTE | 2022-06-07 15:15 | P.CN ---
Psychiatric Consult - . Consult date: 06/07/22 Consult:: 06/07/22 15:14 IDENTIFYING DATA: This patient is a , retired, 81-year-old female with a significant history of parkinsonism, dementia, hypertension, and bladder stimulator who presented to the emergency department for altered mental status. HISTORY OF PRESENT ILLNESS: The patient presented to the hospital on 06/05/2022 brought to the emergency department for evaluation of altered mental status. The patient was discovered in her home at [facility] to be mumbling, having difficulty getting up, and displayeing worsening confusion. There was also concern for fever by EMS. The patient was subsequently admitted medically for management of AMS with neurology consulted. Psychiatry was consulted for evaluation of the patient's medication as she is prescribed a significant dose of zyprexa (25 mg at bedtime). Upon assessment on the medical floor, the patient is noted to be hard of hearing. Present in the room is her brother Andres Nguyen who is her legal guardian and brother. Also present in the room is the patient's [id number] and of Andres. Patient is agreeable to having Andres provide most of the history. The patient's brother reports that the patient first experienced a psychotic break back in 1962. During that time, the patient requried inpatient admission and was treated with electroconvulsive therapy. The brother reports that following the treatment the patient went 30 years without any psychiatric symptom. She , worked, and lived a fulfilling life. Her . As per brother, on June 11, 2020, the patient began exhibiting significant signs and symptoms of psychosis. She was noted to be hallucinating at the time and endorsing significant paranoid delusions. She would carry a knife with her out of fear of her safety. She was admitted to [facility] for psychiatric treatment and was started on zyprexa then. She was discharged from [facility] to [facility]. Her current psychiatric medications are prescribed by Dr Turner who manages her medical care at [facility]. As per patient, she is denying any suicidal or homicidal ideation, intention, and/or plan. She reports no auditory or visual hallucinations. She reports no paranoia or other delusions currently. The patient's brother does believe the patient has been more depressed over the past 2 years with decreased energy and motivation. He states she had an MRI performed in the past which showed no acute abnormalities. PAST PSYCHIATRIC HISTORY: Patient has a history of "a nervous breakdown." Patient is currently prescribed 25 mg of zyprexa at bedtime. The patient has had 2 psychiatric admissions, with the last time being in May of 2020. Psychiatric meds managed by Dr Turner. Patient and family denies any history of suicide attempts in the past. PAST MEDICAL HISTORY: Past Medical History: Asthma, Diabetes Mellitus, Hyperlipidemia, Hypertension Additional Past Medical History / Comment(s): Neuropathy History of Any Multi-Drug Resistant Organisms: None Reported Past Surgical History: Bladder Surgery Additional Past Surgical History / Comment(s): Bladder stimulator, stent in left caritod artery Past Anesthesia/Blood Transfusion Reactions: No Reported Reaction Date of Last Stent Placement:: Pt unsure Past Psychological History: No Psychological Hx Reported Smoking Status: Never smoker Past Alcohol Use History: None Reported Past Drug Use History: None Reported ALLERGIES: Allergies Allergy/AdvReac Type Severity Reaction Status Date / Time TROY Inhibitors Allergy Unknown Verified 06/05/22 11:57 codeine Allergy Unknown Verified 06/05/22 11:57 NSAIDS (Non-Steroidal Allergy Unknown Verified 06/05/22 11:57 Anti-Inflamma sertraline [From Zoloft] Allergy Unknown Verified 06/05/22 11:57 Sulfa (Sulfonamide Allergy Unknown Verified 06/05/22 11:57 Antibiotics) trazodone Allergy Unknown Verified 06/05/22 11:57 CHEMICAL DEPENDENCY HISTORY: As per family, the patient has no history of tobacco, alcohol, mouth, or illicit drug use. FAMILY PSYCHIATRIC/SUBSTANCE USE HISTORY: Father was an alcoholic. Mother was depressed SOCIAL HISTORY: Patient was born and raised in [place]. She is . She is retired. She currently resides at [facility]. Her brother Andres is her legal guardian. MENTAL STATUS EXAM: General Appearance: Patient appears to be stated age is alert, pleasant, and cooperative. Patient appears to have fair hygiene and grooming wearing hospital gown with fair eye contact. Behavior: Patient is calmly lying in bed without any agitated behavior. Patient is hard of hearing. Speech: Patient's speech is fluent and nonpressured. Mood/Affect: Patient reports their mood is "okay", affect is blunted. Suicidality/Homicidality: Patient denies having any suicidal or homicidal ideation intent or plan. Perceptions: Patient denies any visual hallucinations and denies any auditory hallucinations Though content/process: There is no evidence of any delusional thought content and thought process is linear and goal-directed. Memory and concentration: AOX3, grossly intact for the purposes of this session. Can spell "WORLD" backwards Judgment and insight: Fair Vital Signs Temp 98.1 F 06/07/22 12:44 Pulse 59 L 06/07/22 12:44 Resp 18 06/07/22 12:44 BP 153/78 06/07/22 12:44 Pulse Ox 97 06/07/22 12:44 FiO2 Intake & Output 06/06/22 06/07/22 06/07/22 18:59 06:59 18:59 Other: Voiding Method Toilet Toilet # Voids 1 1 Laboratory Results WBC 8.1 k/uL (3.8-10.6) 06/06/22 06:00 RBC 3.84 m/uL (3.80-5.40) 06/06/22 06:00 Hgb 11.1 gm/dL (11.4-16.0) L 06/06/22 06:00 Hct 33.4 % (34.0-46.0) L 06/06/22 06:00 MCV 86.9 fL (80.0-100.0) 06/06/22 06:00 MCH 28.8 pg (25.0-35.0) 06/06/22 06:00 MCHC 33.2 g/dL (31.0-37.0) 06/06/22 06:00 RDW 13.6 % (11.5-15.5) 06/06/22 06:00 Plt Count 258 k/uL (150-450) 06/06/22 06:00 MPV 7.5 06/06/22 06:00 Neutrophils % 66 % 06/06/22 06:00 Lymphocytes % 20 % 06/06/22 06:00 Monocytes % 10 % 06/06/22 06:00 Eosinophils % 1 % 06/06/22 06:00 Basophils % 0 % 06/06/22 06:00 Neutrophils # 5.4 k/uL (1.3-7.7) 06/06/22 06:00 Lymphocytes # 1.6 k/uL (1.0-4.8) 06/06/22 06:00 Monocytes # 0.8 k/uL (0-1.0) 06/06/22 06:00 Eosinophils # 0.0 k/uL (0-0.7) 06/06/22 06:00 Basophils # 0.0 k/uL (0-0.2) 06/06/22 06:00 PT 10.5 sec (9.0-12.0) 06/05/22 07:24 INR 1.0 (<1.2) 06/05/22 07:24 APTT 23.0 sec (22.0-30.0) 06/05/22 07:24 Sodium 141 mmol/L (137-145) 06/06/22 06:00 Potassium 3.1 mmol/L (3.5-5.1) L 06/06/22 06:00 Chloride 103 mmol/L (98-107) 06/06/22 06:00 Carbon Dioxide 34 mmol/L (22-30) H 06/06/22 06:00 Anion Gap 4 mmol/L 06/06/22 06:00 BUN 16 mg/dL (7-17) 06/06/22 06:00 Creatinine 0.79 mg/dL (0.52-1.04) 06/06/22 06:00 Est GFR (CKD-EPI)AfAm 82 (>60 ml/min/1.73 sqM) 06/06/22 06:00 Est GFR (CKD-EPI)NonAf 71 (>60 ml/min/1.73 sqM) 06/06/22 06:00 Glucose 85 mg/dL (74-99) 06/06/22 06:00 POC Glucose (mg/dL) 239 mg/dL (70-110) H 06/07/22 11:11 POC Glu Radon Inspector ID Vianca Leach 06/07/22 11:11 Calcium 7.8 mg/dL (8.4-10.2) L 06/06/22 06:00 Total Bilirubin 0.5 mg/dL (0.2-1.3) 06/05/22 07:24 AST 33 U/L (14-36) 06/05/22 07:24 ALT 27 U/L (4-34) 06/05/22 07:24 Alkaline Phosphatase 129 U/L (38-126) H 06/05/22 07:24 Ammonia <9 umol/L (<30) 06/05/22 16:21 Troponin I 0.013 ng/mL (0.000-0.034) 06/05/22 14:53 Total Protein 5.8 g/dL (6.3-8.2) L 06/05/22 07:24 Albumin 3.4 g/dL (3.5-5.0) L 06/05/22 07:24 Vitamin B12 2768.0 pg/mL (200.0-944.0) H 06/05/22 16:21 Folate 18.80 ng/mL (4.40-31.00) 06/05/22 07:24 Procalcitonin 0.15 ng/mL (0.02-0.09) H 06/06/22 06:00 TSH 2.120 mIU/L (0.465-4.680) 06/05/22 16:21 Urine Color Yellow 06/05/22 07:24 Urine Appearance Clear (Clear) 06/05/22 07:24 Urine pH 6.0 (5.0-8.0) 06/05/22 07:24 Ur Specific Buckner 1.017 (1.001-1.035) 06/05/22 07:24 Urine Protein Negative (Negative) 06/05/22 07:24 Urine Glucose (UA) 4+ (Negative) H 06/05/22 07:24 Urine Ketones 1+ (Negative) H 06/05/22 07:24 Urine Blood Negative (Negative) 06/05/22 07:24 Urine Nitrite Negative (Negative) 06/05/22 07:24 Urine Bilirubin Negative (Negative) 06/05/22 07:24 Urine Urobilinogen <2.0 mg/dL (<2.0) 06/05/22 07:24 Ur Leukocyte Esterase Negative (Negative) 06/05/22 07:24 Influenza Type A (PCR) Not Detected (Not Detectd) 06/05/22 07:24 Influenza Type B (PCR) Not Detected (Not Detectd) 06/05/22 07:24 RSV (PCR) Not Detected (Not Detectd) 06/05/22 07:24 SARS-CoV-2 (PCR) Not Detected (Not Detectd) 06/05/22 07:24 IMPRESSIONS: Black stool Hypokalemia Altered mental status, suspect mutiple etiology - metabolic encephalopathy, polypharmacy, underlying infection? Parkinsonism - currently being worked up in the outpatient setting. Could be the side effect of Zyprexa. Dementia Psychosis, unspecified - controlled PLAN: -At this time patient DOES NOT meet criteria for inpatient psychiatric admissio n. Patient is currently not presenting with any imminent risk of harm to self or others. She is not overtly manic or psychotic. -Delirium precautions recommended with patient including - avoiding use of narcotics and DESIGN DRAFTER sedatives, limit anticholinergic medications when possible, frequent re-orientation, minimize use of restraints, open window shades during the day and close them at night -Would recommend the following medication changes/additions: Patient is currently prescribed Zyprexa 25 mg at bedtime. Agree with decreased to 15 mg at bedtime for now for management of psychosis. The patient does have significant psychiatric history and it is recommended to be conservative and the tapering of her antipsychotic medications. The risks, benefits, and treatment alternatives were discussed with the patient's family. They are in agreement to taper due to concern of worsening parkinsonism. Continue Lexapro 10 mg by mouth daily for depression -Will continue to follow along. 06/07/22 15:14 06/07/22 15:14
[2022-06-07 17:28] LABS: Glucose,Whole Blood 159 mg/dL (70-110)
[2022-06-07] MEDS: ENOXAPARIN 40 MG/0.4 ML SYRINGE SQ SCH (20:25)
[2022-06-07] MEDS: ATORVASTATIN 10 MG TAB PO SCH (20:25)
[2022-06-07] MEDS: OLANZapine 7.5 MG TAB PO SCH (20:25)
[2022-06-07] MEDS: INSULIN DETEMIR (LEVEMIR) 100 UNIT/ML SYR SQ SCH (20:26)
[2022-06-07 20:42] LABS: Glucose,Whole Blood 155 mg/dL (70-110)
--- NOTE | 2022-06-07 21:14 | P.PN ---
Progress Note - Text Progress Note Date: 06/07/22 Chief Complaint: Altered mental status This is a 81-year-old patient. Unable to give a good history . Follows with visiting physicians Dr. Turner History is obtained by the EMS run sheet: There are 2 following the patient sitting of the car to the staff. Staff stated that the patient normally alert and oriented to place person and time and date and quickly towards and thoughts. Today the fall patient slow to communicate dizzy unable to stand on her own. Incontinent of feces. Patient is black and tarry. Patient normally requires help with the staff to use the restroom. No focal neurological findings but then found. Patient can give me only a scanty information. Cannot really tell me why she is here. Slow to answer questions. June 06: Patient seen this morning. Rather lethargic. Not really able to eat. Getting IV ceftriaxone for pneumonia. EEG negative for epilepsy activity. IV fluids. Given that patient rather lethargic. We will decrease the p.m. dose of Zyprexa to 50 mg. Stopped 10 mg of melatonin. Psychiatry consulted. GI service is available in the hospital today. Consult. Also spoke to patient brother and POA legal guardian Mr. Baron -updated. Questions answered in detail. He wishes the patient to be DO NOT RESUSCITATE. June 07: Patient more awake today. Eating about 25%. Seen by psychiatry. Concurs with the change of medications. Seen by GI. No plan for endoscopic treatment. Did ambulate to the bathroom Past medical history to include: Asthma, diabetes, hypertension, hyperlipidemia, neuropathy stent in the left carotid Social history: No smoking. No alcohol. Does use a walker. Physical examination: VITAL SIGNS: 97.4, 69, 18, 160/78, 97% room air GENERAL: Up in a chair. More awake. EYES: Pupils equal. Conjunctiva normal. HEENT: External appearance of nose and ears normal, oral cavity grossly normal. NECK: JVD not raised; masses not palpable. HEART: First and second heart sounds are normal; no edema. LUNGS: Respiratory rate normal; clear to auscultation. ABDOMEN: Soft, nontender, liver spleen not palpable, no masses palpable. PSYCH: Patient able to answer simple questions. Can't tell that she has not hospital knows the month thinks that this 2021.l. MUSCULOSKELETAL:No Clubbing/cyanosis;muscles-grossly intact. OA NEUROLOGICAL: Cranial nerves grossly intact; no facial asymmetry, power and sensation grossly intact. LYMPHATICS: No lymph nodes palpable in the axilla and neck INVESTIGATIONS, reviewed in the clinical context: White count 13.8 hemoglobin 11.7 platelets 290 potassium 2.9. 25 creatinine 0.84 Influenza type A/diabetes/RSV/COVID-19: Not detected Troponin I 3 negative EKG tracing personally reviewed by me-normal sinus rhythm. Chest x-ray film personally reviewed by me-questionable infiltrate left base. Assessment and plan: -Patient presents altered mental status with decrease sensorium. This is likely metabolic encephalopathy. may have underlying left basilar pneumonia. : Improving IV ceftriaxone. Also decrease p.m. dose of Zyprexa to 15 mg daily at bedtime. DC 10 mg dose of melatonin. Consult psychiatry to assist dose of medications. -Possible dehydration IV fluids -Chronic insomnia Patient is very lethargic. DC melatonin. Patient is on Zyprexa. -Intermittent asthma Ventolin 2 puffs when necessary Depression Lexapro 10 mg a day. Zyprexa. Reduced to 15 mg daily at bedtime. GERD PPI -Essential hypertension Cardizem CD 180 mg daily, Toprol-XL 50 mg a day. Increase Catapres 2.1 mg 3 times a day. -Diabetes mellitus type 2 Hold oral hypoglycemic. Start Levemir for now. Follow Accu-Cheks. -Hyperuricemia Allopurinol 50 mg day -Restless legs syndrome Requip 0.5 mg 3 times a day -Black tarry stool reported by the EMS report. Note patient is on aspirin and Plavix. Discontinue the same. Continue PPI. Seen by GI. No endoscopy. -DO NOT RESUSCITATE. Patient brother is the NISHA/ Hugo Nguyen
[2022-06-08] MEDS: SODIUM CHLORIDE 0.9% 1,000 ML IV SCH (04:36)
[2022-06-08 06:16] LABS: African American GFR (CKD) 79 (>60 ml/min/1.73 sqM); Anion Gap 3 mmol/L; Blood Urea Nitrogen 11 mg/dL (7-17); Calcium 8.2 mg/dL (8.4-10.2); Carbon Dioxide 30 mmol/L (22-30); Chloride 109 mmol/L (98-107); Glucose 75 mg/dL (74-99); Non-African American GFR(CKD) 69 (>60 ml/min/1.73 sqM); Potassium 3.6 mmol/L (3.5-5.1); Sodium 142 mmol/L (137-145)
[2022-06-08 07:04] LABS: Glucose,Whole Blood 85 mg/dL (70-110)
[2022-06-08] MEDS: INSULIN ASPART (NovoLOG) 100 UNIT/ML VIAL SQ SCH ×2 (07:23→12:12)
[2022-06-08] MEDS: CYANOCOBALAMIN 500 MCG TAB PO SCH (08:33)
[2022-06-08] MEDS: MAGNESIUM OXIDE 400 MG TAB PO SCH (08:33)
[2022-06-08] MEDS: FUROSEMIDE 20 MG TAB PO SCH (08:34)
[2022-06-08] MEDS: DILTIAZEM CD 180 MG CAP.ER.24H PO SCH (08:34)
[2022-06-08] MEDS: cloNIDine HCL 0.1 MG TAB PO SCH ×2 (08:34→15:22)
[2022-06-08] MEDS: hydrALAZINE HCL 25 MG TAB PO SCH ×3 (08:34→12:25)
[2022-06-08] MEDS: POTASSIUM CHLORIDE ER 10 MEQ TAB.ER.PRT PO SCH (08:35)
[2022-06-08] MEDS: ESCITALOPRAM 10 MG TAB PO SCH (08:35)
[2022-06-08] MEDS: CHOLECALCIFEROL 125 MCG (5000 IU) TABLET PO SCH (08:35)
[2022-06-08] MEDS: METOPROLOL SUCCINATE (ER) 50 MG TAB.ER.24H PO SCH (08:35)
[2022-06-08] MEDS: FERROUS SULFATE 325 MG TAB PO SCH (08:35)
[2022-06-08] MEDS: allopurinoL 100 MG TAB PO SCH (08:35)
[2022-06-08] MEDS: hydroCHLOROthiazide 25 MG TAB PO SCH (08:35)
[2022-06-08] MEDS: PANTOPRAZOLE 40 MG TABLET PO SCH (08:35)
[2022-06-08 11:11] LABS: Glucose,Whole Blood 264 mg/dL (70-110)
--- NOTE | 2022-06-08 11:16 | P.PN ---
Subjective Progress Note Date: 06/07/22 06/07/2022: Patient was seen for a follow-up. Patient is sitting in the recliner. She offers no complaints. No headache or chest pain. 06/06/2022: Patient initially seen by Dr. Alon Llamas. Please refer to his note for details. Patient is a 81-year-old female with history of dementia, came because of confusion, mumbling. I spoke to patient's brother who is the legal guardian on the phone. He mentions that patient lives in assisted living [facility]. She was sent to the hospital because she was mumbling, couldn't stand and she had black tarry stools. Patient does have history of carotid stents and bladder stimulator implant. No history of seizures. Patient used to follow with Dr. Bey, but now is in the process of seeing Dr. Cora Huerta in [facility]. Patient is scheduled for some PET scan. Objective - Vital Signs Vital signs: Vital Signs Temp 98.1 F 06/07/22 12:44 Pulse 59 L 06/07/22 12:44 Resp 18 06/07/22 12:44 BP 153/78 06/07/22 12:44 Pulse Ox 97 06/07/22 12:44 FiO2 Intake & Output 06/06/22 06/07/22 06/07/22 18:59 06:59 18:59 Other: Voiding Method Toilet Toilet # Voids 1 1 1 - Exam Patient is an elderly female, sitting in the recliner, no acute distress. Patient is extremely hard of hearing. Patient is alert awake fairly well oriented. Patient knows it is end of May and the year she states his 2021. Speech and language functions are normal. Patient said "earplug" for earlobe. She was able to name neck. Attention, concentration and fund of knowledge is limited. On cranial nerve examination, pupils are equal very small about 2 mm, not clearly reacting to light. Her visual agustin are full on confrontation, with no neglect on double simultaneous stimulation. Extraocular muscles are intact with no nystagmus. Face is symmetric, tongue protrudes to the midline. Palatal elevation and sensation normal, hearing is severely decreased and shoulder shrug normal, facial sensation normal. On muscle strength testing, there is no pronator drift. The strength is (right/left) deltoid 5/5, triceps 5/5, biceps 5/5, rivet tester 5/5-4+. The left arm weakness was quite related to the pain in the left wrist therefore not able to provide full effort. Hip flexion 4/4-3+, ankle dorsiflexion 5/5. Patient is less tremulous today. Deep tendon reflexes are symmetric biceps 2, brachioradialis 2, knees 2, ankles 1 and plantars are flat bilaterally. Sensory to touch is equal with no neglect on double simultaneous stimulation. Cerebellar function showed no ataxia for [id number] testing. No dysdiadochokinesia. Tone is mildly increased bilaterally and bulk of muscles normal. Gait deferred.. On general examination, there is no carotid bruit or murmur, S1-S2 audible. Chest is clear on consultation. Abdomen is soft nontender. No organomegaly, bowel sounds present. Patient has positive peripheral edema. - Labs CBC & Chem 7: 06/06/22 06:00 06/08/22 05:41 Labs: Abnormal Lab Results - Last 24 Hours (Table) 06/06/22 06/07/22 06/07/22 Range/Units 20:42 07:32 11:11 POC Glucose (mg/dL) 271 H 117 H 239 H (70-110) mg/dL 06/07/22 Range/Units 17:16 POC Glucose (mg/dL) 159 H (70-110) mg/dL Microbiology - Last 24 Hours (Table) 06/05/22 09:00 Blood Culture - Preliminary Blood No Growth after 48 hours 06/05/22 08:45 Blood Culture - Preliminary Blood No Growth after 48 hours Assessment and Plan Assessment: Altered mental status and appears metabolic encephalopathy. Rule out underlying infection (has leukocytosis but is afebrile). EMS felt ?fever but so far afebrile. Is on polypharmacy and can cause underlying confusion Episode of mumbling earlier in the morning at her outside facility: Rule out stroke/possible TIA vs underlying metabolic or infection---currently resolved Hypokalemia Leukocytosis of unknown cause Left wrist pain, likely due to arthritis DM and current sugar is in 300's and unsure if reactive or uncontrolled DM Parkinsonianism: being worked-up as outpatient if truly Parkinson vs medication effect Underlying dementia Hypertension--controlled Coronary artery disease status post stent Hyperlipidemia Bladder stimulator Polypharmacy Plan: EEG 06/06/2022 was abnormal due to background slowing of mild to moderate degree, suggestive of generalized cerebral dysfunction as can been seen with encephalopathy related to vascular, degenerative TOXIC metabolic causes. There are rare sharp-appearing waves seen in the left temporal region. These did not appear clearly epileptiform. Recommend a prolonged EEG for further evaluation if your suspicion for seizures is high. Patient never has any history of seizures. I would hold off on any antiepileptic medication. Ammonia level <9, TSH 2.12, vitamin B12 2768 and folate 18.8, all normal She cannot obtain MRI of the brain since she has a bladder stimulator. Repeat CT head, only if any clinical symptoms of CVA. At present none. According to the patient's son patient had MRI of the brain about 3 month ago was told was unremarkable. She is following up with a neurologist for her Parkinsonism and was recommended PET scan as an outpatient and I will was unsure if that was a medication effect vs true Parkinson disease. I feel the patient is on polypharmacy and needs to have her medication modified as an outpatient. X-ray of the left wrist showed multifocal degeneration without evidence for acute fracture. Findings most pronounced in the first digit. GI on board for "black tarry stools". Patient was on aspirin 81 mg and Plavix 75 mg, currently on hold. Resume antiplatelet medications when medically cleared. Neurologically otherwise clear for discharge.
--- NOTE | 2022-06-08 11:22 | P.PN ---
Subjective Progress Note Date: 06/08/22 Principal diagnosis: Black stools This is a pleasant 81-year-old female who appears hard of hearing who was brought in for concerns for altered mental status changes. Apparently the patient did have a fever when EMS picked her up and according to primary medicines no EMS reported a black tarry stool. Gastroenterology was consulted for black stools. Patient was seen and examined and states that she has had no black stool and she is known. No abdominal pain, nausea or vomiting. No previous history of peptic ulcer disease, EGD or colonoscopy. She does state that she takes Pepto to the small as needed for upset stomach, she denies any anticoagulation or NSAID use. States she uses Tylenol for aches and pains. On admission hemoglobin was 11.7 with a repeat yesterday of 11.1. Nursing is reporting no black stools. She was also noted on admission to have a potassium of 2.9 with replacement. She is denying any epigastric pain, no abdominal pain, no nausea or vomiting. 06/08/2022: Patient seen and examined today for follow-up for consultation for reportedly having black stools per EMS note. Nursing again continues to report no black stools. Patient also states no black stools, no abdominal pain, nausea or vomiting. Objective - Vital Signs Vital signs: Vital Signs Temp 98.6 F 06/08/22 07:04 Pulse 70 06/08/22 07:04 Resp 17 06/08/22 07:04 BP 128/72 06/08/22 07:04 Pulse Ox 92 L 06/08/22 07:04 FiO2 Intake & Output 06/07/22 06/08/22 06/08/22 18:59 06:59 18:59 Intake Total 100 200 Balance 100 200 Intake: Intake, IV Titration 100 Amount cefTRIAXone 1 gm In 100 Sodium Chloride 0.9% 50 ml @ 100 mls/hr IVPB Q12HR [facility] Rx#:[id number] Oral 200 Other: Voiding Method Toilet Toilet # Voids 1 2 2 - Exam General appearance: The patient is alert, oriented, appears in no acute distress. HET: Head is normocephalic and atraumatic. Conjunctiva pink. Sclera anicteric. Hard of hearing. Neck: Supple without lymphadenopathy. Abdomen: Soft, nontender, nondistended with bowel sounds. No guarding or rigidity. Extremities: Normal skin color and turgor. No pedal edema Skin: No rashes, no jaundice Neurological: No focal deficits. Alert and oriented. - Labs CBC & Chem 7: 06/06/22 06:00 06/08/22 05:41 Labs: Abnormal Lab Results - Last 24 Hours (Table) 06/07/22 06/07/22 06/07/22 Range/Units 11:11 17:16 20:33 Chloride (98-107) mmol/L POC Glucose (mg/dL) 239 H 159 H 155 H (70-110) mg/dL Calcium (8.4-10.2) mg/dL 06/08/22 Range/Units 05:41 Chloride 109 H (98-107) mmol/L POC Glucose (mg/dL) (70-110) mg/dL Calcium 8.2 L (8.4-10.2) mg/dL Microbiology - Last 24 Hours (Table) 06/05/22 09:00 Blood Culture - Preliminary Blood No Growth after 48 hours 06/05/22 08:45 Blood Culture - Preliminary Blood No Growth after 48 hours Assessment and Plan (1) Black stool Narrative/Plan: 81-year-old female who is brought in by EMS supposedly reporting that patient had black stool however was brought in for altered mental status changes noted to have electrolyte imbalance and dehydration. Gastroenterology consulted for black stools however patient and nursing reporting no black stools. Patient does state that she does take Pepto-Bismol as needed. No previous history of peptic ulcer disease or GI bleed. No previous EGD colonoscopy. Hemoglobin stable from 11.7-11.1 today. No current evidence of acute GI bleed. Current Visit: Yes Status: Acute Code(s): K92.1 - MELENA SNOMED Code(s): 370429658 (2) Altered mental status Current Visit: Yes Status: Acute Code(s): R41.82 - ALTERED MENTAL STATUS, UNSPECIFIED SNOMED Code(s): 098482777 (3) Hypokalemia Current Visit: Yes Status: Acute Code(s): E87.6 - HYPOKALEMIA SNOMED Code(s): 52043202 Plan: 1. Continue symptomatic and supportive care 2. Continue medical management 3. Protonix 40 mg daily for GI prophylaxis 4. No plans on endoscopic evaluation at this time 5. Continue to monitor for signs of GI bleed 6. Patient is stable for discharge from a gastroenterology standpoint. Thank you for this consultation, we will sign off at this time. Dr. Melany Pathak I agree with the dictator's note, documented as a scribe by Malorie Joyner.
[2022-06-08 12:22] LABS: HCT 34.8 % (34.0-46.0); HGB 11.1 gm/dL (11.4-16.0); MCH 28.9 pg (25.0-35.0); MCHC 31.9 g/dL (31.0-37.0); MCV 90.6 fL (80.0-100.0); Mean Platelet Volume 9.4; Platelet Count 296 k/uL (150-450); RBC 3.84 m/uL (3.80-5.40); RDW 14.1 % (11.5-15.5); WBC 5.3 k/uL (3.8-10.6)
[2022-06-08 12:32] VITALS: BP 115/65; PULSE 93; RESP 18; TEMP 97.8
--- NOTE | 2022-06-08 13:52 | P.PN ---
Progress Note - Text Progress Note Date: 06/08/22 Interval History: Patient was seen seated upright in her chair and was directable and agreeable to speak with video games storywriter in the room. Currently the patient is not reporting any suicidal or homicidal ideation. She reports no auditory or visual hallucinations. She reports no issues regarding sleep or appetite. She is reporting she feels well and is eager for discharge. She has been adherent with her medications and reports no side effects. Mental Status Exam: General Appearance: Patient appears to be stated age is alert, directable, and cooperative. Behavior: Patient is calmly seated without any agitated behavior. Speech: Patient's speech is fluent and nonpressured. Mood/Affect: Mood is "I'm ready to leave." Affect is bright and excited. Suicidality/Homicidality: Patient denies having any suicidal or homicidal ideation intent or plan. Perceptions: Patient denies any visual hallucinations and denies any auditory hallucinations Though content/process: There is no evidence of any delusional thought content and thought process is linear and goal-directed. Memory and concentration: AOX3, grossly intact for the purposes of this session Judgment and insight: Fair Vital Signs Temp 97.8 F 06/08/22 12:18 Pulse 93 06/08/22 12:18 Resp 18 06/08/22 12:18 BP 115/65 06/08/22 12:18 Pulse Ox 95 06/08/22 12:18 FiO2 Intake & Output 06/07/22 06/08/22 06/08/22 18:59 06:59 18:59 Intake Total 100 200 Balance 100 200 Intake: Intake, IV Titration 100 Amount cefTRIAXone 1 gm In 100 Sodium Chloride 0.9% 50 ml @ 100 mls/hr IVPB Q12HR [facility] Rx#:[id number] Oral 200 Other: Voiding Method Toilet Toilet Toilet # Voids 1 2 2 Laboratory Results - Last 24 Hours 06/07/22 06/07/22 06/08/22 17:16 20:33 05:41 WBC RBC Hgb Hct MCV MCH MCHC RDW Plt Count MPV Sodium 142 Potassium 3.6 Chloride 109 H Carbon Dioxide 30 Anion Gap 3 BUN 11 Creatinine 0.81 Est GFR (CKD-EPI)AfAm 79 Est GFR (CKD-EPI)NonAf 69 Glucose 75 POC Glucose (mg/dL) 159 H 155 H POC Glu Block Sorter ID Vianca Leach Megan Calcium 8.2 L 06/08/22 06/08/22 06/08/22 05:41 07:03 11:10 WBC 5.3 RBC 3.84 Hgb 11.1 L Hct 34.8 MCV 90.6 MCH 28.9 MCHC 31.9 RDW 14.1 Plt Count 296 MPV 9.4 Sodium Potassium Chloride Carbon Dioxide Anion Gap BUN Creatinine Est GFR (CKD-EPI)AfAm Est GFR (CKD-EPI)NonAf Glucose POC Glucose (mg/dL) 85 264 H POC Glu Block Sorter ID Mariana Cornelius Shantelle Calcium Assessment Altered mental status, suspect mutiple etiology, resolved Parkinsonism - currently being worked up in the outpatient setting. Could be the side effect of Zyprexa. Dementia Psychosis, unspecified - controlled Plan: -At this time patient DOES NOT meet criteria for inpatient psychiatric admission. Patient is currently not presenting with any imminent risk of harm to self or others. She is not overtly manic or psychotic. -Delirium precautions recommended with patient including - avoiding use of narcotics and SENIOR CHEMICAL ENGINEER sedatives, limit anticholinergic medications when possible, frequent re-orientation, minimize use of restraints, open window shades during the day and close them at night -Would recommend the following medication changes/additions: Continue Zyprexa 15 mg at bedtime for psychosis. Continue Lexapro 10 mg by mouth daily for depression -Recommend outpatient psychiatric follow-up. -Patient is cleared psychiatrically for discharge. Please call us or reconsult us if necessary. Psychiatry will sign off at this time. Thank you for this consult.
[2022-06-08] MEDS ORDERED: ASPIRIN 81 MG PO SCH (14:00)
[2022-06-08] MEDS ORDERED: CLOPIDOGREL 75 MG TAB PO SCH (14:15)
--- NOTE | 2022-06-08 23:12 | P.DS ---
Providers Date of admission: 06/05/22 10:59 Expected date of discharge: 06/08/22 Attending physician: Lang Gonzalez Consults: 06/05/22 10:59 Consult Physician Routine Consulting Provider: Alon Llamas Consult Reason/Comments: ams Do you want consulting provider notified?: Yes 06/06/22 16:28 Consult Physician Routine Consulting Provider: Avelino Conte Consult Reason/Comments: Review needs for Zyprexa Do you want consulting provider notified?: Yes Primary care physician: Fausto Turner [facility] Course: Chief Complaint: Altered mental status This is a 81-year-old patient. Unable to give a good history . Follows with visiting physicians Dr. Turner History is obtained by the EMS run sheet: There are 2 following the patient sitting of the car to the staff. Staff stated that the patient normally alert and oriented to place person and time and date and quickly towards and thoughts. Today the fall patient slow to communicate dizzy unable to stand on her own. Incontinent of feces. Patient is black and tarry. Patient normally requires help with the staff to use the restroom. No focal neurological findings but then found. Patient can give me only a scanty information. Cannot really tell me why she is here. Slow to answer questions. June 06: Patient seen this morning. Rather lethargic. Not really able to eat. Getting IV ceftriaxone for pneumonia. EEG negative for epilepsy activity. IV fluids. Given that patient rather lethargic. We will decrease the p.m. dose of Zyprexa to 50 mg. Stopped 10 mg of melatonin. Psychiatry consulted. GI service is available in the hospital today. Consult. Also spoke to patient brother and POA legal guardian Mr. Baron -updated. Questions answered in detail. He wishes the patient to be DO NOT RESUSCITATE. June 07: Patient more awake today. Eating about 25%. Seen by psychiatry. Concurs with the change of medications. Seen by GI. No plan for endoscopic treatment. Did ambulate to the bathroom June 08: Patient doing well. Eating well. Slept well last night. Awake. Complete her course of antibiotic. No further workup by GI. Resume aspirin and Plavix. Follow for G outpatient. Discussed with nurse. Patient will follow-up with GI outpatient if needed. Discussion and discharge planning more than 35 minutes Past medical history to include: Asthma, diabetes, hypertension, hyperlipidemia, neuropathy stent in the left carotid Social history: No smoking. No alcohol. Does use a walker. Physical examination: VITAL SIGNS: 97.8, 93, 18, 115/65, 95% room air GENERAL: Up in a chair. Comfortable EYES: Pupils equal. Conjunctiva normal. HEENT: External appearance of nose and ears normal, oral cavity grossly normal. NECK: JVD not raised; masses not palpable. HEART: First and second heart sounds are normal; no edema. LUNGS: Respiratory rate normal; clear to auscultation. ABDOMEN: Soft, nontender, liver spleen not palpable, no masses palpable. PSYCH: Patient able to answer simple questions. Can't tell that she has not hospital knows the month thinks that this 2021.l. MUSCULOSKELETAL:No Clubbing/cyanosis;muscles-grossly intact. OA INVESTIGATIONS, reviewed in the clinical context: June 08: Potassium 3.6 creatinine 0.81 white count 5.3 White count 13.8 hemoglobin 11.7 platelets 290 potassium 2.9. 25 creatinine 0.84 Influenza type A/diabetes/RSV/COVID-19: Not detected Troponin I 3 negative EKG tracing personally reviewed by me-normal sinus rhythm. Chest x-ray film personally reviewed by me-questionable infiltrate left base. Assessment and plan: - metabolic encephalopathy. From left basilar pneumonia. An medication : Improving IV ceftriaxone. Also decrease p.m. dose of Zyprexa to 15 mg daily at bedtime. DC 10 mg dose of melatonin. -Possible dehydration IV fluids -Chronic insomnia . DC melatonin. Continue Zyprexa. -Intermittent asthma Ventolin 2 puffs when necessary Depression Lexapro 10 mg a day. Zyprexa. Reduced to 15 mg daily at bedtime. GERD PPI -Essential hypertension Cardizem CD 180 mg daily, Toprol-XL 50 mg a day. Increase Catapres .1 mg 3 times a day. -Diabetes mellitus type 2 Decrease Glucotrol to 10 mg twice a day Follow Accu-Cheks. -Hyperuricemia Allopurinol 50 mg day -Restless legs syndrome Requip 0.5 mg 3 times a day -Black tarry stool reported by the EMS report. Continue PPI. Seen by GI. No endoscopy. Continue aspirin and Plavix -DO NOT RESUSCITATE. Patient brother is the NISHA/ Hugo Nguyen Plan - Discharge Summary Discharge Rx Participant: No New Discharge Prescriptions: New cloNIDine HCL [Catapres] 0.1 mg PO TID #90 tab Melatonin 3 mg PO HS #30 tablet Cefuroxime [Ceftin] 250 mg PO BID #4 tab Continue Acetaminophen [Tylenol Extra Strength] 1,000 mg PO Q6H PRN PRN Reason: Fever And/ Or Pain rOPINIRole HCL [Requip] 0.5 mg PO TID@0900,1500,2100 Simvastatin [Zocor] 20 mg PO HS@2000 Aspirin EC [Ecotrin Low Dose] 81 mg PO DAILY@0700 Bismuth Subsalicylate [Pepto-Bismol] 524 mg PO Q30M PRN MDD 8 DOSES/24 HOURS PRN Reason: UPSET STOMACH/HEARBURN Coricidin Hbp Cough/Congestion 1 cap PO Q8H PRN PRN Reason: Cough/Congestion Tetrahydrozoline 0.05% Ophth [Visine Eye Drops] 1 - 2 drops BOTH EYES DAILY PRN PRN Reason: Dry Eye(S) Cyanocobalamin (Vitamin B-12) [Vitamin B-12] 1,000 mcg PO DAILY@0700 Cholecalciferol [Vitamin D3 (125 Mcg = 5000 Iu)] 125 mcg PO DAILY@0700 Albuterol Inhaler [Ventolin Hfa Inhaler] 2 puff INHALATION RT-Q4H PRN PRN Reason: Shortness Of Breath OLANZapine 15 mg PO HS@2000 Magnesium 200 mg PO DAILY@0700 Esomeprazole Magnesium [NexIUM] 40 mg PO DAILY@0700 Escitalopram [Lexapro] 10 mg PO DAILY@0700 allopurinoL [Zyloprim] 50 mg PO DAILY@0700 Semaglutide [Ozempic] 0.25 mg SQ MO Ketoconazole 2% Shampoo [Nizoral] 1 applic TOPICAL MOFR PRN PRN Reason: dry scalp Potassium Chloride [Potassium Chloride ER] 10 meq PO BID@0700,1999 Metoprolol Succinate [Toprol XL] 50 mg PO DAILY@0700 hydrALAZINE HCL [Apresoline] 25 mg PO QID Furosemide [Lasix] 20 mg PO DAILY@0700 Ferrous Sulfate [Feosol] 325 mg PO DAILY@0700 Diltiazem Cd [Cardizem CD] 180 mg PO DAILY@0700 Clopidogrel [Plavix] 75 mg PO DAILY@0700 Changed glipiZIDE [Glucotrol] 10 mg PO AC-BID #0 Discontinued OLANZapine 10 mg PO HS@1999 Melatonin 10 mg PO HS@1999 hydroCHLOROthiazide [Hydrodiuril] 25 mg PO DAILY@699 cloNIDine HCL [Catapres] 0.1 mg PO BID@ Meclizine HCl [Antivert] 25 mg PO BID@699,1999 Discharge Medication List Acetaminophen [Tylenol Extra Strength] 1,000 mg PO Q6H PRN 02/03/21 [History] Aspirin EC [Ecotrin Low Dose] 81 mg PO DAILY@69902/03/21 [History] Bismuth Subsalicylate [Pepto-Bismol] 524 mg PO Q30M PRN MDD 8 DOSES/24 HOURS 02/03/21 [History] Simvastatin [Zocor] 20 mg PO HS@199902/03/21 [History] rOPINIRole HCL [Requip] 0.5 mg PO TID@0900,1500,2100 02/03/21 [History] Albuterol Inhaler [Ventolin Hfa Inhaler] 2 puff INHALATION RT-Q4H PRN 06/05/22 [History] Cholecalciferol [Vitamin D3 (125 Mcg = 5000 Iu)] 125 mcg PO DAILY@69906/05/22 [History] Clopidogrel [Plavix] 75 mg PO DAILY@69906/05/22 [History] Coricidin Hbp Cough/Congestion 1 cap PO Q8H PRN 06/05/22 [History] Cyanocobalamin (Vitamin B-12) [Vitamin B-12] 1,000 mcg PO DAILY@69906/05/22 [History] Diltiazem Cd [Cardizem CD] 180 mg PO DAILY@69906/05/22 [History] Escitalopram [Lexapro] 10 mg PO DAILY@69906/05/22 [History] Esomeprazole Magnesium [NexIUM] 40 mg PO DAILY@69906/05/22 [History] Ferrous Sulfate [Feosol] 325 mg PO DAILY@69906/05/22 [History] Furosemide [Lasix] 20 mg PO DAILY@69906/05/22 [History] Ketoconazole 2% Shampoo [Nizoral] 1 applic TOPICAL MOFR PRN 06/05/22 [History] Magnesium 200 mg PO DAILY@0700 06/05/22 [History] Metoprolol Succinate [Toprol XL] 50 mg PO DAILY@0706/05/22 [History] OLANZapine 15 mg PO HS@199906/05/22 [History] Potassium Chloride [Potassium Chloride ER] 10 meq PO BID@0700,199906/05/22 [History] Semaglutide [Ozempic] 0.25 mg SQ MO 06/05/22 [History] Tetrahydrozoline 0.05% Ophth [Visine Eye Drops] 1 - 2 drops BOTH EYES DAILY PRN 06/05/22 [History] allopurinoL [Zyloprim] 50 mg PO DAILY@0700 06/05/22 [History] hydrALAZINE HCL [Apresoline] 25 mg PO QID 06/05/22 [History] Cefuroxime [Ceftin] 250 mg PO BID #4 tab 06/08/22 [Rx] Melatonin 3 mg PO HS #30 tablet 06/08/22 [Rx] cloNIDine HCL [Catapres] 0.1 mg PO TID #90 tab 06/08/22 [Rx] glipiZIDE [Glucotrol] 10 mg PO AC-BID #0 06/08/22 [Rx] Follow up Appointment(s)/Referral(s): Fausto Turner MD [Primary Care Provider] - 1-2 days Patient Instructions/Handouts: Cefuroxime (By mouth), Clonidine (Absorbed through the skin), Melatonin (By mouth), Dehydration (DC), Hypokalemia (DC), Altered Mental Status (ED), Diabetic Hyperglycemia (DC) Discharge Disposition: HOME SELF-CARE
== END 2022-06-08 16:31 | disposition home or self-care (01) ==
LOC: EC 06:55 → 6NMEDSUR 10:59 → 5NMEDONC 12:14
PROVIDERS: ADMIT Hospitalist; ATTEND Hospitalist
DX: G93.41 Metabolic encephalopathy (principal); E86.0 Dehydration; E87.6 Hypokalemia; R73.9 Hyperglycemia, unspecified; F32.A Depression, unspecified; K21.9 Gastro-esophageal reflux disease without esophagitis; R42 Dizziness and giddiness; R15.9 Full incontinence of feces; E79.0 Hyperuricemia without signs of inflammatory arthritis and tophaceous disease; G25.81 Restless legs syndrome; R26.81 Unsteadiness on feet; J45.20 Mild intermittent asthma, uncomplicated; E78.5 Hyperlipidemia, unspecified; I10 Essential (primary) hypertension; E11.40 Type 2 diabetes mellitus with diabetic neuropathy, unspecified; Z95.5 Presence of coronary angioplasty implant and graft; G20 Parkinson's disease; F03.90 Unspecified dementia, unspecified severity, without behavioral disturbance, psychotic disturbance, mood disturbance, and anxiety; Z79.02 Long term (current) use of antithrombotics/antiplatelets; Z79.82 Long term (current) use of aspirin; Z79.84 Long term (current) use of oral hypoglycemic drugs; Z79.899 Other long term (current) drug therapy; Z88.6 Allergy status to analgesic agent; Z88.5 Allergy status to narcotic agent; Z88.2 Allergy status to sulfonamides; Z88.8 Allergy status to other drugs, medicaments and biological substances
CPT/HCPCS: 96361 ×5; 96365; 96366 ×4; 96372 ×3; 99285; 36415; 94760; 95816; 93005; 97110; 97530 ×2; 97162; 97535; 97167; 80053; 80048 ×2; 84443; 82607; 82140; 82746; 84484; 85025 ×2; 85027; 85610; 85730; 81003; 87040; 84145; 87636; 73110; 71046 ×2; 70450; G0378 ×5; J1650 ×3; J0696 ×4

== ENCOUNTER 2024-04-08 03:23 | Emergency (ER) | payer MEDICARE ==
--- NOTE | 2024-04-08 03:59 | ED ---
General Adult HPI - General Source: EMS Mode of arrival: EMS <Alannah - Last Filed: 04/08/24 07:52> <Jossue Preciado - Last Filed: 04/08/24 08:04> - General Chief complaint: Fall Stated complaint: Fall Time Seen by Provider: 04/08/24 03:34 - History of Present Illness Initial comments: Patient is an 83 female with an unknown past medical history presenting today for presumed fall. Patient lives at an independent living facility and was found on the ground, with a skin tear on her neck and bruise on her cheek. The patient is unable to describe to me what caused her fall and does not remember the event that caused it. She does not know why she is in the emergency department. She thinks she is in [place] and thinks the month is January. She currently denies any complaints. (Alannah Boyle) - Related Data Home Medications Medication Instructions Recorded Confirmed Acetaminophen [Tylenol Extra 1,000 mg PO Q6H PRN 02/03/21 06/05/22 Strength] Aspirin EC [Ecotrin Low Dose] 81 mg PO DAILY@0702/03/21 06/05/22 Bismuth Subsalicylate 524 mg PO Q30M PRN MDD 8 DOSES/02/03/21 06/05/22 [Pepto-Bismol] HOURS Simvastatin [Zocor] 20 mg PO HS@199902/03/21 06/05/22 rOPINIRole HCL [Requip] 0.5 mg PO TID@0900,1500,2100 02/03/21 06/05/22 Albuterol Inhaler [Ventolin Hfa 2 puff INHALATION RT-Q4H PRN 06/05/22 06/05/22 Inhaler] Cholecalciferol [Vitamin D3 (125 125 mcg PO DAILY@69906/05/22 06/05/22 Mcg = 5000 Iu)] Clopidogrel [Plavix] 75 mg PO DAILY@69906/05/22 06/05/22 Coricidin Hbp Cough/Congestion 1 cap PO Q8H PRN 06/05/22 06/05/22 Cyanocobalamin (Vitamin B-12) 1,000 mcg PO DAILY@00 06/05/22 06/05/22 [Vitamin B-12] Diltiazem Cd [Cardizem CD] 180 mg PO DAILY@69906/05/22 06/05/22 Escitalopram [Lexapro] 10 mg PO DAILY@69906/05/22 06/05/22 Esomeprazole Magnesium [NexIUM] 40 mg PO DAILY@69906/05/22 06/05/22 Ferrous Sulfate [Feosol] 325 mg PO DAILY@69906/05/22 06/05/22 Furosemide [Lasix] 20 mg PO DAILY@69906/05/22 06/05/22 Ketoconazole 2% Shampoo [Nizoral] 1 applic TOPICAL MOFR PRN 06/05/22 06/05/22 Magnesium 200 mg PO DAILY@69906/05/22 06/05/22 Metoprolol Succinate [Toprol XL] 50 mg PO DAILY@69906/05/22 06/05/22 OLANZapine 15 mg PO HS@199906/05/22 06/05/22 Potassium Chloride [Klor-Con M10] 10 meq PO BID@06/05/22 06/05/22 Semaglutide [Ozempic] 0.25 mg SQ MO 06/05/22 06/05/22 Tetrahydrozoline 0.05% Ophth 1 - 2 drops BOTH EYES DAILY PRN 06/05/22 06/05/22 [Visine Eye Drops] allopurinoL [Zyloprim] 50 mg PO DAILY@69906/05/22 06/05/22 hydrALAZINE HCL [Apresoline] 25 mg PO QID 06/05/22 06/05/22 Previous Rx's Medication Instructions Recorded Cefuroxime [Ceftin] 250 mg PO BID #4 tab 06/08/22 Melatonin 3 mg PO HS #30 tablet 06/08/22 cloNIDine HCL [Catapres] 0.1 mg PO TID #90 tab 06/08/22 glipiZIDE [Glucotrol] 10 mg PO AC-BID #0 06/08/22 Allergies Allergy/AdvReac Type Severity Reaction Status Date / Time TROY Inhibitors Allergy Unknown Verified 06/05/22 11:57 codeine Allergy Unknown Verified 06/05/22 11:57 NSAIDS (Non-Steroidal Allergy Unknown Verified 06/05/22 11:57 Anti-Inflamma sertraline [From Zoloft] Allergy Unknown Verified 06/05/22 11:57 Sulfa (Sulfonamide Allergy Unknown Verified 06/05/22 11:57 Antibiotics) trazodone Allergy Unknown Verified 06/05/22 11:57 Review of Systems ROS Other: All systems not noted in ROS Statement are negative. Limitations: ROS unobtainable due to patients medical condition <Alannah Boyle - Last Filed: 04/08/24 07:52> ROS Other: All systems not noted in ROS Statement are negative. <Jossue Preciado - Last Filed: 04/08/24 08:04> ROS Statement: Those systems with pertinent positive or pertinent negative responses have been documented in the HPI. Past Medical History Past Medical History: Asthma, Diabetes Mellitus, Hyperlipidemia, Hypertension Additional Past Medical History / Comment(s): Neuropathy History of Any Multi-Drug Resistant Organisms: None Reported Past Surgical History: Bladder Surgery Additional Past Surgical History / Comment(s): Bladder stimulator, stent in left caritod artery Past Anesthesia/Blood Transfusion Reactions: No Reported Reaction Date of Last Stent Placement:: Pt unsure Past Psychological History: No Psychological Hx Reported Smoking Status: Never smoker Past Alcohol Use History: None Reported Past Drug Use History: None Reported <Alannah Boyle - Last Filed: 04/08/24 07:52> General Exam <Alannah Boyle - Last Filed: 04/08/24 07:52> - General Exam Comments Initial Comments: PE: CONSTITUTIONAL: No apparent distress, well appearing SKIN: Warm, dry, no jaundice, hives or petechiae. Bruising to the left cheek, small abrasion to left lateral neck EYES: Pupils are equally round, extraocular movements intact without nystagmus, clear conjunctiva, non-icteric sclera HENT: Normocephalic, atraumatic, moist mucus membranes, oropharynx clear without exudates NECK: , [No midline spinal tenderness palpation, c-collar applied upon arrival PULMONARY: Clear to auscultation without wheezes, rhonchi, or rales, normal excursion, no accessory muscle use and no stridor CARDIOVASCULAR: Regular rate, rhythm, normal S1 and S2. No appreciated murmurs, rubs or gallops. Strong radial pulses with intact distal perfusion. No lower extremity edema GASTROINTESTINAL: Soft, active bowel sounds throughout, non-tender, non-d istended, no palpable masses, no rebound or guarding. No hepatosplenomegaly MUSCULOSKELETAL: Extremities have no gross deformity, no edema, redness, or swelling. No calf swelling, mild weakness in LLE (4/5 strength) patient states "that's my weak side" NEUROLOGIC:_a/o x 1, GCS 14, Pleasantly confused mentation and clear speech. Moves all extremities x 4 without motor or sensory deficit PSYCHIATRIC:_normal mood and affect, thought process is somewhat confused (Alannah Boyle) Course Vital Signs 04/08/24 04/08/24 04/08/24 03:31 04:28 06:27 Temperature 97.9 F Pulse Rate 67 66 70 Respiratory 18 18 18 Rate Blood Pressure 193/80 149/75 161/87 O2 Sat by Pulse 96 96 96 Oximetry EKG Findings - EKG Comments: EKG Findings:: Sinus rhythm, rate 69 bpm, TN interval 209 ms, QRS duration 100 ms, QT/QTc 412/431 ms, normal axis, no ST elevations or depressions, no arrhythmia <Alannah Boyle - Last Filed: 04/08/24 07:52> Medical Decision Making - Lab Data Result diagrams: 04/08/24 04:04 04/08/24 04:04 <Alannah Boyle - Last Filed: 04/08/24 07:52> - Lab Data Result diagrams: 04/08/24 04:04 04/08/24 04:04 <Jossue Preciado - Last Filed: 04/08/24 08:04> - Medical Decision Making Was pt. sent in by a medical professional or institution (, PA, SHEET TURNER, urgent care, hospital, or jail...) When possible be specific @ -[No] Did you speak to anyone other than the patient for history (EMS, parent, family, police, friend...)? What history was obtained from this source @ -[No] Did you review nursing and triage notes (agree or disagree)? Why? @ -[I reviewed and agree with nursing and triage notes] Were old charts reviewed (outside hosp., previous admission, EMS record, old EKG, old radiological studies, urgent care reports/EKG's, jail records)? Report findings @ -Medical records reviewed Differential Diagnosis (chest pain, altered mental status, abdominal pain women, abdominal pain men, vaginal bleeding, weakness, fever, dyspnea, syncope, headache, dizziness, GI bleed, back pain, seizure, CVA, palpatations, mental health, musculoskeletal)? @ -[not applicable] EKG interpreted by me (3pts min.). @ -[As above] X-rays interpreted by me (1pt min.). @ -[None done] CT interpreted by me (1pt min.). @ -[None done] U/S interpreted by me (1pt. min.). @ -[None done] What testing was considered but not performed or refused? (CT, X-rays, U/S, labs)? Why? @ -[None] What meds were considered but not given or refused? Why? @ -[None] Did you discuss the management of the patient with other professionals (professionals i.e. , PA, SHEET TURNER, lab, RT, psych nurse, addiction social worker, product inspection coordinator, teacher, chief medical officer, wrapper caser)? Give summary @ -[No] Was smoking cessation discussed for >3mins.? @ -[No] Was critical care preformed (if so, how long)? @ -[No] Were there social determinants of health that impacted care today? How? (Homelessness, low income, unemployed, alcoholism, drug addiction, joseph sportation, low edu. Level, literacy, decrease access to med. care, halfway, rehab)? @ -[No] Was there de-escalation of care discussed even if they declined (Discuss DNR or withdrawal of care, Hospice)? @ -[No] What co-morbidities impacted this encounter? (DM, HTN, Smoking, COPD, CAD, Cancer, CVA, ARF, Chemo, Hep., AIDS, mental health diagnosis, sleep apnea, morbid obesity)? @ -[None] Was patient admitted / discharged? Hospital course, mention meds given and route, prescriptions, significant lab abnormalities, going to OR and other pertinent info. @ -[hospital course] Patient is an 83 y/o female presenting from [facility] for suspected fall. Found on the ground in her room with bruise to her cheek. Hx limited as patient is a poor historian. Unknown LOC, though patient does deny this, unknown downtime as patient unable to report why she fell and is not able to tell my what she understands the reason for her being in the ED today to be. Patient has no complaints. Bruise to left cheek and abrasion to left side of neck. No swelling, hematoma or bruit along left side of neck. 2+ pulses in all 4 extremities. No midline TTP of Cspine, no signs of trauma to ba ck, trunk or extremities. Though patient is suspected trip and fall, it is unknown if because of fall syncope so CT brain, CT chest x-ray, EKG, troponin CBC and CMP will be ordered. Patient agreeable and comfortable plan of care. Labs and imaging reviewed. Grossly within normal limits. Abnormal values not concerning for acute pathology related to presenting complaint. Again discussed with patient her presentation today, when asked what brought her in or if she remembers falling she is unable to describe this warming. 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 Attempted to call listed guardian x2, RN called x 1, to obtain further hx and ensure pt at baseline however no answer x 3. Pt is a fall risk and need to ensure Undiagnosed new problem with uncertain prognosis? @ -[No] Drug Therapy requiring intensive monitoring for toxicity (Heparin, Nitro, Insulin, Cardizem)? @ -[No] Were any procedures done? @ -[No] Diagnosis/symptom? @ -[default] Acute, or Chronic, or Acute on Chronic? @ -[default] Uncomplicated (without systemic symptoms) or Complicated (systemic symptoms)? @ -[default] Side effects of treatment? @ -[No] Exacerbation, Progression, or Severe Exacerbation? @ -[No] Poses a threat to life or bodily function? How? (Chest pain, USA, MS, pneumonia, PE, COPD, DKA, ARF, appy, cholecystitis, CVA, Diverticulitis, Homicidal, Suicidal, threat to staff... and all critical care pts) @ -[No] (,Alannah) Patient signed out to me pending contacting patient's guardian. Patient is currently confused and presented last night for a fall. Workup is unremarkable. Imaging returned negative. Nursing staff was able to contact patient's guardian, Hugo who was able to confirm that patient is at her baseline and is okay with the patient being discharged home. Discussed this with the patient as well as Hugo they were in agreement this plan. I instructed the patient to follow up with their PCP in the next 1-3 days. I explained that the patient should return to the emergency department if they experience any worsening symptoms. Strict return precautions were discussed with the patient. The patient expressed understanding of these instructions. I answered all questions that the patient had. The patient was discharged home in good condition with their prescriptions and follow up information. Diagnosis/symptom? @ -Fall, dementia Acute, or Chronic, or Acute on Chronic? @ -Acute Uncomplicated (without systemic symptoms) or Complicated (systemic symptoms)? @ -Uncomplicated Side effects of treatment? @ -None Exacerbation, Progression, or Severe Exacerbation] @ -No Poses a threat to life or bodily function? @ -Unlikely at this time (Jossue Preciado) - Lab Data Lab Results 04/08/24 04/08/24 04/08/24 Range/Units 04:04 04:04 04:04 WBC 8.3 (3.8-10.6) k/uL RBC 4.85 (3.80-5.40) m/uL Hgb 14.0 (11.4-16.0) gm/dL Hct 43.4 (34.0-46.0) % MCV 89.4 (80.0-100.0) fL MCH 28.7 (25.0-35.0) pg MCHC 32.2 (31.0-37.0) g/dL RDW 13.5 (11.5-15.5) % Plt Count 267 (150-450) k/uL MPV 7.8 Neutrophils % 69 % Lymphocytes % 17 % Monocytes % 8 % Eosinophils % 4 % Basophils % 1 % Neutrophils # 5.7 (1.3-7.7) k/uL Lymphocytes # 1.4 (1.0-4.8) k/uL Monocytes # 0.7 (0-1.0) k/uL Eosinophils # 0.3 (0-0.7) k/uL Basophils # 0.0 (0-0.2) k/uL PT 10.3 (10.0-12.5) sec INR 0.9 (<1.2) APTT 22.9 (22.0-30.0) sec Sodium 138 (137-145) mmol/L Potassium 4.9 (3.5-5.1) mmol/L Chloride 102 (98-107) mmol/L Carbon Dioxide 31 H (22-30) mmol/L Anion Gap 5 mmol/L BUN 22 H (7-17) mg/dL Creatinine 1.01 (0.52-1.04) mg/dL Est GFR (CKD-EPI)AfAm 60 (>60 ml/min/1.73 sqM) Est GFR (CKD-EPI)NonAf 52 (>60 ml/min/1.73 sqM) Glucose 117 H (74-99) mg/dL Calcium 9.2 (8.4-10.2) mg/dL Total Bilirubin 1.0 (0.2-1.3) mg/dL AST 57 H (14-36) U/L ALT 51 H (4-34) U/L Alkaline Phosphatase 118 (38-126) U/L Creatine Kinase 140 H (30-135) U/L Troponin I (0.000-0.034) ng/mL Total Protein 7.4 (6.3-8.2) g/dL Albumin 4.4 (3.5-5.0) g/dL 04/08/24 Range/Units 04:04 WBC (3.8-10.6) k/uL RBC (3.80-5.40) m/uL Hgb (11.4-16.0) gm/dL Hct (34.0-46.0) % MCV (80.0-100.0) fL MCH (25.0-35.0) pg MCHC (31.0-37.0) g/dL RDW (11.5-15.5) % Plt Count (150-450) k/uL MPV Neutrophils % % Lymphocytes % % Monocytes % % Eosinophils % % Basophils % % Neutrophils # (1.3-7.7) k/uL Lymphocytes # (1.0-4.8) k/uL Monocytes # (0-1.0) k/uL Eosinophils # (0-0.7) k/uL Basophils # (0-0.2) k/uL PT (10.0-12.5) sec INR (<1.2) APTT (22.0-30.0) sec Sodium (137-145) mmol/L Potassium (3.5-5.1) mmol/L Chloride (98-107) mmol/L Carbon Dioxide (22-30) mmol/L Anion Gap mmol/L BUN (7-17) mg/dL Creatinine (0.52-1.04) mg/dL Est GFR (CKD-EPI)AfAm (>60 ml/min/1.73 sqM) Est GFR (CKD-EPI)NonAf (>60 ml/min/1.73 sqM) Glucose (74-99) mg/dL Calcium (8.4-10.2) mg/dL Total Bilirubin (0.2-1.3) mg/dL AST (14-36) U/L ALT (4-34) U/L Alkaline Phosphatase (38-126) U/L Creatine Kinase (30-135) U/L Troponin I <0.012 (0.000-0.034) ng/mL Total Protein (6.3-8.2) g/dL Albumin (3.5-5.0) g/dL Disposition <Alannah Boyle - Last Filed: 04/08/24 07:52> Is patient prescribed a controlled substance at d/c from ED?: No Time of Disposition: 08:00 <Jossue Preciado - Last Filed: 04/08/24 08:04> Clinical Impression: Fall, Dementia Disposition: HOME SELF-CARE Condition: Good Instructions (If sedation given, give patient instructions): Fall Prevention for Older Adults (ED) Referrals: Fausto Turner MD [Primary Care Provider] - 1-2 days
--- NOTE | 2024-04-08 04:09 | CT ---
EXAMINATION TYPE: CT facial bones wo con, CT brain cspine wo con DATE OF EXAM: 04/08/2024 COMPARISON: CT brain June 05, 2022 HISTORY: FALL ON THINNERS CT DLP: 1001.4 mGycm. Automated Exposure Control for Dose Reduction was Utilized. TECHNIQUE: CT scan of the head, facial bones, and cervical spine are all performed without contrast. FINDINGS: There is no acute intracranial hemorrhage or midline shift identified. Mild to moderate v entricular and sulcal prominence is redemonstrated. Mild low attenuation in the periventricular whit e matter is again seen. The calvarium is intact. The mandible is intact. Temporomandibular joints are maintained bilaterally. The zygomatic arches are intact. The nasal bones are intact. Orbital floors and wu are intact. Bilateral aphakia is seen. Intraconal fat is preserved. The pterygoid plates are intact. Mild mucosal thickening involving right maxillary sinus otherwise paranasal sinuses are clear Cervical spine is visualized in its entirety from C1 through upper thoracic levels and demonstrates s light grade 1 retrolisthesis C3 on C4 without evidence of acute fracture or dislocation. Prevertebra l soft tissue appears within normal limits. The C1-C2 articulation is within normal limits on the co bertha images. Vertebral body heights are maintained. Moderate multilevel disc space narrowing and mi ld to moderate multilevel spurring is seen. Axial images show multilevel uncovertebral facet degenera tive changes bilaterally causing multilevel bilateral neural foraminal narrowing. Upper lungs are yessy ar without pneumothorax. Thyroid gland is felt within normal limits. IMPRESSION: 1. There is no acute fracture or dislocation evident in the cervical spine. 2. No acute intracranial hemorrhage or midline shift is seen. 3. No acute displaced facial bone fracture. [facility], , 04/08/2024 4:07 AM
--- NOTE | 2024-04-08 04:12 | XR ---
EXAMINATION TYPE: XR chest 1V portable DATE OF EXAM: 04/08/2024 COMPARISON: Chest x-ray June 06, 2022 HISTORY: Fall on thinners TECHNIQUE: Single frontal view of the chest is obtained. FINDINGS: There is no focal air space opacity, pleural effusion, or pneumothorax seen. The cardiac silhouette size remains upper limits of normal mitral annular calcifications redemonstrated. The os seous structures are intact. IMPRESSION: No acute process. No significant change from prior. [facility], , 04/08/2024 4:10 AM
[2024-04-08 04:18] LABS: Basophils % (A) 1 %; Eosinophils # (A) 0.3 k/uL (0-0.7); Eosinophils % (A) 4 %; HCT 43.4 % (34.0-46.0); Lymphocytes # (A) 1.4 k/uL (1.0-4.8); Lymphocytes % (A) 17 %; MCH 28.7 pg (25.0-35.0); MCHC 32.2 g/dL (31.0-37.0); MCV 89.4 fL (80.0-100.0); Mean Platelet Volume 7.8; Monocytes # (A) 0.7 k/uL (0-1.0); Monocytes % (A) 8 %; Neutrophils # (A) 5.7 k/uL (1.3-7.7); Neutrophils % (A) 69 %; Platelet Count 267 k/uL (150-450); RBC 4.85 m/uL (3.80-5.40); RDW 13.5 % (11.5-15.5); WBC 8.3 k/uL (3.8-10.6)
[2024-04-08 04:23] LABS: ALT 51 U/L (4-34); AST 57 U/L (14-36); African American GFR (CKD) 60 (>60 ml/min/1.73 sqM); Albumin 4.4 g/dL (3.5-5.0); Alkaline Phosphatase 118 U/L (38-126); Anion Gap 5 mmol/L; Blood Urea Nitrogen 22 mg/dL (7-17); Calcium 9.2 mg/dL (8.4-10.2); Carbon Dioxide 31 mmol/L (22-30); Chloride 102 mmol/L (98-107); Creatine Kinase 140 U/L (30-135); Glucose 117 mg/dL (74-99); Non-African American GFR(CKD) 52 (>60 ml/min/1.73 sqM); Sodium 138 mmol/L (137-145); Total Protein 7.4 g/dL (6.3-8.2)
[2024-04-08 04:25] LABS: Potassium 4.9 mmol/L (3.5-5.1)
[2024-04-08 04:38] LABS: INR 0.9 (<1.2); Partial Thromboplastin Time 22.9 sec (22.0-30.0); Prothrombin Time 10.3 sec (10.0-12.5)
[2024-04-08 10:33] VITALS: BP 151/80; PULSE 69; RESP 17; TEMP 97.8
== END 2024-04-08 10:17 | disposition home or self-care (01) ==
LOC: EC 03:23
DX: S00.83XA Contusion of other part of head, initial encounter (principal); S10.91XA Abrasion of unspecified part of neck, initial encounter; F03.90 Unspecified dementia, unspecified severity, without behavioral disturbance, psychotic disturbance, mood disturbance, and anxiety; Z88.1 Allergy status to other antibiotic agents; Z88.2 Allergy status to sulfonamides; Z88.6 Allergy status to analgesic agent; Z88.8 Allergy status to other drugs, medicaments and biological substances; W19.XXXA Unspecified fall, initial encounter
CPT/HCPCS: 36415; 70450; 70486; 71045; 72125; 80053; 82550; 84484; 85025; 85610; 85730; 93005; 99284; 99285

== ENCOUNTER 2024-07-16 09:05 | Emergency (ER) | payer MEDICARE ==
[2024-07-16 09:17] VITALS: RESP 16
[2024-07-16 09:51] LABS: Basophils % (A) 0 %; Eosinophils % (A) 1 %; HCT 41.4 % (34.0-46.0); HGB 13.2 gm/dL (11.4-16.0); Lymphocytes # (A) 0.5 k/uL (1.0-4.8); Lymphocytes % (A) 7 %; MCHC 31.9 g/dL (31.0-37.0); MCV 87.6 fL (80.0-100.0); Mean Platelet Volume 7.9; Monocytes # (A) 0.6 k/uL (0-1.0); Monocytes % (A) 9 %; Neutrophils # (A) 5.5 k/uL (1.3-7.7); Neutrophils % (A) 81 %; Platelet Count 207 k/uL (150-450); RBC 4.73 m/uL (3.80-5.40); RDW 14.7 % (11.5-15.5); WBC 6.8 k/uL (3.8-10.6)
--- NOTE | 2024-07-16 10:00 | XR ---
EXAMINATION TYPE: XR chest 1V DATE OF EXAM: 07/16/2024 9:53 AM COMPARISON: Chest radiographs from 04/08/2024 TECHNIQUE: XR chest 1V Frontal view of the chest. CLINICAL INDICATION:Female, 84 years old with history of Weakness; FINDINGS: Lungs/Pleura: There is no evidence of pleural effusion, focal consolidation, or pneumothorax. Pulmonary vascularity: Central pulmonary vascular congestion redemonstrated. Heart/mediastinum: Cardiomediastinal silhouette is enlarged and stable. Mitral anus calcifications re demonstrated. Atherosclerotic calcifications are seen in the aorta. Musculoskeletal: No acute osseous pathology. IMPRESSION: Chronic changes without acute pulmonary process. No significant change from prior. [facility], , 07/16/2024 9:57 AM
--- NOTE | 2024-07-16 10:01 | XR ---
EXAMINATION TYPE: XR Hip RT and AP Pelvis DATE OF EXAM: 07/16/2024 9:55 AM INDICATION: Patient age:Female; 84 years old; Reason for study: pain; PHH. pain COMPARISON: None. TECHNIQUE: The right hip was examined in the frontal and lateral projections and a AP pelvis. FINDINGS: No evidence of any acute osseous pathology, joint dislocation, or soft tissue swelling. Mul tilevel degenerative changes of visualized lumbar spine. The SI joints appear intact. Sacral spinal s timulator lead with power pack overlying the left hemipelvis. IMPRESSION: No acute osseous pathology. [facility], , 07/16/2024 9:59 AM
[2024-07-16 10:08] LABS: ALT 48 U/L (4-34); AST 56 U/L (14-36); African American GFR (CKD) 59 (>60 ml/min/1.73 sqM); Albumin 4.1 g/dL (3.5-5.0); Alkaline Phosphatase 113 U/L (38-126); Anion Gap 10 mmol/L; Blood Urea Nitrogen 19 mg/dL (7-17); Calcium 9.2 mg/dL (8.4-10.2); Carbon Dioxide 27 mmol/L (22-30); Chloride 99 mmol/L (98-107); Glucose 116 mg/dL (74-99); Non-African American GFR(CKD) 51 (>60 ml/min/1.73 sqM); Potassium 3.9 mmol/L (3.5-5.1); Sodium 136 mmol/L (137-145); Total Bilirubin 0.6 mg/dL (0.2-1.3); Total Protein 6.7 g/dL (6.3-8.2)
--- NOTE | 2024-07-16 10:52 | CT ---
EXAMINATION TYPE: CT brain cspine wo con CT DLP: 1490.6 mGycm, Automated exposure control for dose reduction was used. DATE OF EXAM: 07/16/2024 10:42 AM COMPARISON: CT brain C-spine facial bones 04/08/2024. CLINICAL INDICATION:Female, 84 years old with history of fall; Fall, pain TECHNIQUE: Brain: Multiple axial CT images of the brain were obtained without IV contrast. Cspine: Axial CT images from the skull base to the inferior aspect of T2 we obtained without intraven ous contrast. Coronal and sagittal reformatted images were also reviewed. FINDINGS: Brain: Extra-axial spaces: No abnormal extra-axial fluid collections. Ventricular system: Within normal limits Cerebral parenchyma: Cerebral atrophy. No acute intraparenchymal hemorrhage or mass effect. The ruiz -white junction is well differentiated. Scattered hypoattenuating areas are seen within the periventr icular white matter. Cerebellum: Unremarkable. Mass effect: No evidence of midline shift. Intracranial vasculature: Atherosclerotic calcifications of the intracranial vessels. Soft tissues: Normal. Calvarium/osseous structures: No depressed skull fracture. Paranasal sinuses and mastoid air cells: The mastoid air cells are clear. Postsurgical changes from b ilateral maxillary antrostomy and ethmoidectomy. Moderate mucosal thickening of the right maxillary s inus with hyperostosis consistent with chronic sinusitis. Visualized orbits: Senile calcific scleral plaques are present. Bilateral aphakia. Cervical spine: Fracture: None. Osseous structures: Diffuse bone demineralization. Multilevel degenerative disc disease changes with endplate spurring and disc osteophyte complex's. Fusion of the right C7-T1 facet joint. Fusion of the left C3-C4 facet joint. Vertebral alignment: Within normal limits. Spinal canal/Neural Foramina: Disc osteophyte complexes at C3-C4, C4-C5, C5-C6 with at least mild spi nal canal stenosis. Facet joint uncovertebral joint arthropathy scattered throughout the cervical spi ne with varying degrees of neural foraminal stenosis. Neck soft tissues: Prevertebral soft tissues are within normal limits. Other: The airway is patent. The lung apices are clear. Bilateral carotid bulb calcifications with ri ght carotid stent. Moderate coronary artery calcifications. Cardiomegaly. IMPRESSION: 1. No acute intracranial process. 2. Nonspecific white matter changes, likely secondary to chronic small vessel ischemic disease. 3. No evidence of cervical spine fracture. 4. Moderate multilevel degenerative disc disease. [facility], , 07/16/2024 10:50 AM
--- NOTE | 2024-07-16 11:25 | ED ---
Fall HPI - General Chief Complaint: Fall Stated Complaint: fall, on thinners Time Seen by Provider: 07/16/24 09:10 Source: EMS Mode of arrival: EMS - History of Present Illness Initial Comments: 84-year-old female presents emergency department after she had a fall. Patient comes in from [facility]. Report from EMS is that the patient a fall yesterday evening and she was found next to her bed. The fall was unwitnessed. It did not appear that the patient had hit her head. She has dementia and therefore she cannot provide much history. They were able to get her up and she was ambulatory. This morning when they checked on the patient she was complaining of some right hip pain and because of it they decided to send her to the hospital. EMS was able to get the patient to stand and ambulate. They did place her in a c-collar. Patient is not on any blood thinners. History is limited due to patient's history of dementia - Related Data Home Medications Medication Instructions Recorded Confirmed Acetaminophen [Tylenol Extra 1,000 mg PO Q6H PRN 02/03/21 06/05/22 Strength] Aspirin EC [Ecotrin Low Dose] 81 mg PO DAILY@0700 02/03/21 06/05/22 Bismuth Subsalicylate 524 mg PO Q30M PRN MDD 8 DOSES/24 02/03/21 06/05/22 [Pepto-Bismol] HOURS Simvastatin [Zocor] 20 mg PO HS@199902/03/21 06/05/22 rOPINIRole HCL [Requip] 0.5 mg PO TID@0900,1500,2100 02/03/21 06/05/22 Albuterol Inhaler [Ventolin Hfa 2 puff INHALATION RT-Q4H PRN 06/05/22 06/05/22 Inhaler] Cholecalciferol [Vitamin D3 (125 125 mcg PO DAILY@69906/05/22 06/05/22 Mcg = 5000 Iu)] Clopidogrel [Plavix] 75 mg PO DAILY@69906/05/22 06/05/22 Coricidin Hbp Cough/Congestion 1 cap PO Q8H PRN 06/05/22 06/05/22 Cyanocobalamin (Vitamin B-12) 1,000 mcg PO DAILY@69906/05/22 06/05/22 [Vitamin B-12] Diltiazem Cd [Cardizem CD] 180 mg PO DAILY@69906/05/22 06/05/22 Escitalopram [Lexapro] 10 mg PO DAILY@69906/05/22 06/05/22 Esomeprazole Magnesium [NexIUM] 40 mg PO DAILY@69906/05/22 06/05/22 Ferrous Sulfate [Feosol] 325 mg PO DAILY@69906/05/22 06/05/22 Furosemide [Lasix] 20 mg PO DAILY@69906/05/22 06/05/22 Ketoconazole 2% Shampoo [Nizoral] 1 applic TOPICAL MOFR PRN 06/05/22 06/05/22 Magnesium 200 mg PO DAILY@69906/05/22 06/05/22 Metoprolol Succinate [Toprol XL] 50 mg PO DAILY@69906/05/22 06/05/22 OLANZapine 15 mg PO HS@199906/05/22 06/05/22 Potassium Chloride [Klor-Con M10] 10 meq PO BID@699,199906/05/22 06/05/22 Semaglutide [Ozempic] 0.25 mg SQ MO 06/05/22 06/05/22 Tetrahydrozoline 0.05% Ophth 1 - 2 drops BOTH EYES DAILY PRN 06/05/22 06/05/22 [Visine Eye Drops] allopurinoL [Zyloprim] 50 mg PO DAILY@69906/05/22 06/05/22 hydrALAZINE HCL [Apresoline] 25 mg PO QID 06/05/22 06/05/22 Previous Rx's Medication Instructions Recorded Cefuroxime [Ceftin] 250 mg PO BID #4 tab 06/08/22 Melatonin 3 mg PO HS #30 tablet 06/08/22 cloNIDine HCL [Catapres] 0.1 mg PO TID #90 tab 06/08/22 glipiZIDE [Glucotrol] 10 mg PO AC-BID #0 06/08/22 Allergies Allergy/AdvReac Type Severity Reaction Status Date / Time TROY Inhibitors Allergy Unknown Verified 06/05/22 11:57 codeine Allergy Unknown Verified 06/05/22 11:57 NSAIDS (Non-Steroidal Allergy Unknown Verified 06/05/22 11:57 Anti-Inflamma sertraline [From Zoloft] Allergy Unknown Verified 06/05/22 11:57 Sulfa (Sulfonamide Allergy Unknown Verified 06/05/22 11:57 Antibiotics) trazodone Allergy Unknown Verified 06/05/22 11:57 Review of Systems ROS Statement: Those systems with pertinent positive or pertinent negative responses have been documented in the HPI. ROS Other: All systems not noted in ROS Statement are negative. Past Medical History Past Medical History: Asthma, Diabetes Mellitus, Hyperlipidemia, Hypertension Additional Past Medical History / Comment(s): Neuropathy History of Any Multi-Drug Resistant Organisms: None Reported Past Surgical History: Bladder Surgery Additional Past Surgical History / Comment(s): Bladder stimulator, stent in left caritod artery Past Anesthesia/Blood Transfusion Reactions: No Reported Reaction Date of Last Stent Placement:: Pt unsure Past Psychological History: No Psychological Hx Reported Smoking Status: Never smoker Past Alcohol Use History: None Reported Past Drug Use History: None Reported General Exam Limitations: altered mental status General appearance: alert, in no apparent distress Head exam: Present: atraumatic, normocephalic, normal inspection Eye exam: Present: normal appearance ENT exam: Present: normal exam Neck exam: Present: normal inspection. Absent: tenderness, meningismus, lymphadenopathy Respiratory exam: Present: normal lung sounds bilaterally. Absent: respiratory distress, wheezes, rales, rhonchi, stridor Cardiovascular Exam: Present: regular rate GI/Abdominal exam: Present: soft, normal bowel sounds. Absent: distended, tenderness, guarding, rebound, rigid Extremities exam: Present: tenderness (Palpation of the right hip, mild) Course Vital Signs 07/16/24 07/16/24 07/16/24 09:09 09:17 11:36 Temperature 97.3 F L 97.8 F Pulse Rate 80 69 Respiratory 16 16 Rate Blood Pressure 108/62 101/49 O2 Sat by Pulse 97 98 Oximetry Medical Decision Making - Medical Decision Making Was pt. sent in by a medical professional or institution (, PA, SENIOR VALIDATION ENGINEER, urgent care, hospital, or fdc...) When possible be specific @ -Sent in from [facility] Did you speak to anyone other than the patient for history (EMS, parent, family, police, friend...)? What history was obtained from this source @ -Spoke with EMS for history Did you review nursing and triage notes (agree or disagree)? Why? @ -I reviewed and agree with nursing and triage notes Were old charts reviewed (outside hosp., previous admission, EMS record, old EKG, old radiological studies, urgent care reports/EKG's, fdc records)? Report findings @ -No old charts were reviewed Differential Diagnosis (chest pain, altered mental status, abdominal pain women, abdominal pain men, vaginal bleeding, weakness, fever, dyspnea, syncope, headache, dizziness, GI bleed, back pain, seizure, CVA, palpatations, mental health, musculoskeletal)? @ -Differential Musculoskeletal Muscular strain, contusion, ligament sprain, fracture, arthritis, septic arthritis, bursitis, cellulitis, muscle spasm, nerve compression, DVT, arterial occlusion, herpes zoster, electrolyte abnormality, tumor.... This is not meant to be in all inclusive list EKG interpreted by me (3pts min.). @ -Yes and demonstrates sinus rhythm with a rate of 78. ND interval 213. QRS 88. QTc of 458. No acute ST segment elevations or depressions X-rays interpreted by me (1pt min.). @ -Yes and demonstrates no acute fractures CT interpreted by me (1pt min.). @ -yes and demonstrates no acute intracranial process U/S interpreted by me (1pt. min.). @ -None done What testing was considered but not performed or refused? (CT, X-rays, U/S, la bs)? Why? @ -Urinalysis however patient cannot provide 1 What meds were considered but not given or refused? Why? @ -None Did you discuss the management of the patient with other professionals (prof tala i.e. , PA, SENIOR VALIDATION ENGINEER, lab, RT, psych nurse, health care social worker, cut lace machine operator, teacher, vessel traffic officer, dependency case manager)? Give summary @ -No Was smoking cessation discussed for >3mins.? @ -No Was critical care preformed (if so, how long)? @ -No Were there social determinants of health that impacted care today? How? (Homelessness, low income, unemployed, alcoholism, drug addiction, transportation, low edu. Level, literacy, decrease access to med. care, skilled nursing, rehab)? @ -Patient is in a nursing facility with 24-hour care Was there de-escalation of care discussed even if they declined (Discuss DNR or withdrawal of care, Hospice)? DNR status @ -No What co-morbidities impacted this encounter? (DM, HTN, Smoking, COPD, CAD, Cancer, CVA, ARF, Chemo, Hep., AIDS, mental health diagnosis, sleep apnea, mor bid obesity)? @ -Dementia Was patient admitted / discharged? Hospital course, mention meds given and route, prescriptions, significant lab abnormalities, going to OR and other pertinent info. @ -Upon arrival patient seen and evaluated in room 2. Thorough history and physical exam was performed. Laboratory studies are conducted. Patient does go for head CT and pelvic x-ray. No acute fractures. Patient was reevaluated. She is able to get up and ambulate. She will be discharged back to [facility] at this time. Recommend that she see her doctor in 2 to 4 days. Have repeat imaging if any pain persists and return for any new or worsening symptoms Undiagnosed new problem with uncertain prognosis? @ -No Drug Therapy requiring intensive monitoring for toxicity (Heparin, Nitro, Insuli n, Cardizem)? @ -No Were any procedures done? @ -No Diagnosis/symptom? @ -Acute fall, acute right hip pain Acute, or Chronic, or Acute on Chronic? @ -Acute Uncomplicated (without systemic symptoms) or Complicated (systemic symptoms)? @ -Complicated Side effects of treatment? @ -No Exacerbation, Progression, or Severe Exacerbation? @ -No Poses a threat to life or bodily function? How? (Chest pain, USA, IA, pneumonia, PE, COPD, DKA, ARF, appy, cholecystitis, CVA, Diverticulitis, Homicidal, Suicidal, threat to staff... and all critical care pts) @ -No - Lab Data Result diagrams: 07/16/24 09:35 07/16/24 09:35 Lab Results 07/16/24 07/16/24 07/16/24 Range/Units 09:35 09:35 09:35 WBC 6.8 (3.8-10.6) k/uL RBC 4.73 (3.80-5.40) m/uL Hgb 13.2 (11.4-16.0) gm/dL Hct 41.4 (34.0-46.0) % MCV 87.6 (80.0-100.0) fL MCH 28.0 (25.0-35.0) pg MCHC 31.9 (31.0-37.0) g/dL RDW 14.7 (11.5-15.5) % Plt Count 207 (150-450) k/uL MPV 7.9 Neutrophils % 81 % Lymphocytes % 7 % Monocytes % 9 % Eosinophils % 1 % Basophils % 0 % Neutrophils # 5.5 (1.3-7.7) k/uL Lymphocytes # 0.5 L (1.0-4.8) k/uL Monocytes # 0.6 (0-1.0) k/uL Eosinophils # 0.0 (0-0.7) k/uL Basophils # 0.0 (0-0.2) k/uL Sodium 136 L (137-145) mmol/L Potassium 3.9 (3.5-5.1) mmol/L Chloride 99 (98-107) mmol/L Carbon Dioxide 27 (22-30) mmol/L Anion Gap 10 mmol/L BUN 19 H (7-17) mg/dL Creatinine 1.01 (0.52-1.04) mg/dL Est GFR (CKD-EPI)AfAm 59 (>60 ml/min/1.73 sqM) Est GFR (CKD-EPI)NonAf 51 (>60 ml/min/1.73 sqM) Glucose 116 H (74-99) mg/dL Plasma Lactic Acid Yong 0.7 (0.7-2.0) mmol/L Calcium 9.2 (8.4-10.2) mg/dL Total Bilirubin 0.6 (0.2-1.3) mg/dL AST 56 H (14-36) U/L ALT 48 H (4-34) U/L Alkaline Phosphatase 113 (38-126) U/L Troponin I (0.000-0.034) ng/mL Total Protein 6.7 (6.3-8.2) g/dL Albumin 4.1 (3.5-5.0) g/dL 07/16/24 Range/Units 09:35 WBC (3.8-10.6) k/uL RBC (3.80-5.40) m/uL Hgb (11.4-16.0) gm/dL Hct (34.0-46.0) % MCV (80.0-100.0) fL MCH (25.0-35.0) pg MCHC (31.0-37.0) g/dL RDW (11.5-15.5) % Plt Count (150-450) k/uL MPV Neutrophils % % Lymphocytes % % Monocytes % % Eosinophils % % Basophils % % Neutrophils # (1.3-7.7) k/uL Lymphocytes # (1.0-4.8) k/uL Monocytes # (0-1.0) k/uL Eosinophils # (0-0.7) k/uL Basophils # (0-0.2) k/uL Sodium (137-145) mmol/L Potassium (3.5-5.1) mmol/L Chloride (98-107) mmol/L Carbon Dioxide (22-30) mmol/L Anion Gap mmol/L BUN (7-17) mg/dL Creatinine (0.52-1.04) mg/dL Est GFR (CKD-EPI)AfAm (>60 ml/min/1.73 sqM) Est GFR (CKD-EPI)NonAf (>60 ml/min/1.73 sqM) Glucose (74-99) mg/dL Plasma Lactic Acid Yong (0.7-2.0) mmol/L Calcium (8.4-10.2) mg/dL Total Bilirubin (0.2-1.3) mg/dL AST (14-36) U/L ALT (4-34) U/L Alkaline Phosphatase (38-126) U/L Troponin I 0.018 (0.000-0.034) ng/mL Total Protein (6.3-8.2) g/dL Albumin (3.5-5.0) g/dL Disposition Clinical Impression: Fall Disposition: HOME SELF-CARE Condition: Stable Instructions (If sedation given, give patient instructions): Fall Prevention for Older Adults (ED) Additional Instructions: Your lab work and imaging was negative in the emergency department. Please follow-up with your primary care doctor in 2 to 4 days for reevaluation return for any new or worsening symptoms Is patient prescribed a controlled substance at d/c from ED?: No Referrals: Fausto Turner MD [REFERRING] - 1-2 days Time of Disposition: 11:24
[2024-07-16 11:46] VITALS: BP 101/49; PULSE 69; TEMP 97.8
== END 2024-07-16 11:52 | disposition home or self-care (01) ==
LOC: EC 09:05
DX: M25.551 Pain in right hip (principal); F03.90 Unspecified dementia, unspecified severity, without behavioral disturbance, psychotic disturbance, mood disturbance, and anxiety; W06.XXXA Fall from bed, initial encounter
CPT/HCPCS: 36415; 70450; 71045; 72125; 73502; 80053; 83605; 84484; 85025; 99285

== ENCOUNTER 2024-08-18 12:32 | Emergency (ER) | payer MEDICARE ==
[2024-08-18 12:36] VITALS: RESP 18; TEMP 98.1
--- NOTE | 2024-08-18 12:57 | XR ---
EXAMINATION TYPE: XR tibia fibula RT DATE OF EXAM: 08/18/2024 12:51 PM COMPARISON: None. CLINICAL INDICATION: Female, 84 years old with history of pain, pain TECHNIQUE: 2 view(s) obtained. FINDINGS: No acute fracture or dislocation is evident. Joint spaces appear preserved. Soft tissues are unremark able. Note is made of an Achilles tendon calcaneal heel spur. Vascular calcification is present. Follow up exams can be performed 7-10 days from acute trauma for continued pain. IMPRESSION: 1. No acute osseous abnormality right tibia and fibula [facility] Jean Carlos Woods, , 08/18/2024 12:55 PM
--- NOTE | 2024-08-18 13:17 | ED ---
Lower Extremity Injury HPI - General Chief Complaint: Extremity Injury, Lower Stated Complaint: Right ankle injury Time Seen by Provider: 08/18/24 12:33 Source: patient, EMS, RN notes reviewed Mode of arrival: EMS Limitations: no limitations - History of Present Illness Initial Comments: 84-year-old female presents emergency department chief complaint of trip and fall. Patient fell in which she has a right lower leg right ankle injury. Patient states she is able to ambulate states there is swelling. She had no head injury no loss conscious denies any back, hip pain no chest pain or shortness of breath no other complaints. - Related Data Home Medications Medication Instructions Recorded Confirmed Acetaminophen [Tylenol Extra 1,000 mg PO Q6H PRN 02/03/21 06/05/22 Strength] Aspirin EC [Ecotrin Low Dose] 81 mg PO DAILY@69902/03/21 06/05/22 Bismuth Subsalicylate 524 mg PO Q30M PRN MDD 8 DOSES/24 02/03/21 06/05/22 [Pepto-Bismol] HOURS Simvastatin [Zocor] 20 mg PO HS@199902/03/21 06/05/22 rOPINIRole HCL [Requip] 0.5 mg PO TID@0900,1500,2100 02/03/21 06/05/22 Albuterol Inhaler [Ventolin Hfa 2 puff INHALATION RT-Q4H PRN 06/05/22 06/05/22 Inhaler] Cholecalciferol [Vitamin D3 (125 125 mcg PO DAILY@69906/05/22 06/05/22 Mcg = 5000 Iu)] Clopidogrel [Plavix] 75 mg PO DAILY@69906/05/22 06/05/22 Coricidin Hbp Cough/Congestion 1 cap PO Q8H PRN 06/05/22 06/05/22 Cyanocobalamin (Vitamin B-12) 1,000 mcg PO DAILY@69906/05/22 06/05/22 [Vitamin B-12] Diltiazem Cd [Cardizem CD] 180 mg PO DAILY@69906/05/22 06/05/22 Escitalopram [Lexapro] 10 mg PO DAILY@69906/05/22 06/05/22 Esomeprazole Magnesium [NexIUM] 40 mg PO DAILY@69906/05/22 06/05/22 Ferrous Sulfate [Feosol] 325 mg PO DAILY@0706/05/22 06/05/22 Furosemide [Lasix] 20 mg PO DAILY@69906/05/22 06/05/22 Ketoconazole 2% Shampoo [Nizoral] 1 applic TOPICAL MOFR PRN 06/05/22 06/05/22 Magnesium 200 mg PO DAILY@0706/05/22 06/05/22 Metoprolol Succinate [Toprol XL] 50 mg PO DAILY@69906/05/22 06/05/22 OLANZapine 15 mg PO HS@199906/05/22 06/05/22 Potassium Chloride [Klor-Con M10] 10 meq PO BID@699,199906/05/22 06/05/22 Semaglutide [Ozempic] 0.25 mg SQ MO 06/05/22 06/05/22 Tetrahydrozoline 0.05% Ophth 1 - 2 drops BOTH EYES DAILY PRN 06/05/22 06/05/22 [Visine Eye Drops] allopurinoL [Zyloprim] 50 mg PO DAILY@69906/05/22 06/05/22 hydrALAZINE HCL [Apresoline] 25 mg PO QID 06/05/22 06/05/22 Previous Rx's Medication Instructions Recorded Cefuroxime [Ceftin] 250 mg PO BID #4 tab 06/08/22 Melatonin 3 mg PO HS #30 tablet 06/08/22 cloNIDine HCL [Catapres] 0.1 mg PO TID #90 tab 06/08/22 glipiZIDE [Glucotrol] 10 mg PO AC-BID #0 06/08/22 Allergies Allergy/AdvReac Type Severity Reaction Status Date / Time TROY Inhibitors Allergy Unknown Verified 08/18/24 12:37 codeine Allergy Unknown Verified 08/18/24 12:37 NSAIDS (Non-Steroidal Allergy Unknown Verified 08/18/24 12:37 Anti-Inflamma sertraline [From Zoloft] Allergy Unknown Verified 08/18/24 12:37 Sulfa (Sulfonamide Allergy Unknown Verified 08/18/24 12:37 Antibiotics) trazodone Allergy Unknown Verified 08/18/24 12:37 Review of Systems ROS Statement: Those systems with pertinent positive or pertinent negative responses have been documented in the HPI. ROS Other: All systems not noted in ROS Statement are negative. Past Medical History Past Medical History: Asthma, Diabetes Mellitus, Hyperlipidemia, Hypertension Additional Past Medical History / Comment(s): Neuropathy History of Any Multi-Drug Resistant Organisms: None Reported Past Surgical History: Bladder Surgery Additional Past Surgical History / Comment(s): Bladder stimulator, stent in left caritod artery Past Anesthesia/Blood Transfusion Reactions: No Reported Reaction Date of Last Stent Placement:: Pt unsure Past Psychological History: No Psychological Hx Reported Smoking Status: Never smoker Past Alcohol Use History: None Reported Past Drug Use History: None Reported General Exam Limitations: no limitations General appearance: alert, in no apparent distress Head exam: Present: atraumatic, normocephalic, normal inspection Respiratory exam: Present: normal lung sounds bilaterally. Absent: respiratory distress, wheezes, rales, rhonchi, stridor Cardiovascular Exam: Present: regular rate, normal rhythm, normal heart sounds. Absent: systolic murmur, diastolic murmur, rubs, gallop, clicks GI/Abdominal exam: Present: soft, normal bowel sounds. Absent: distended, tenderness, guarding, rebound, rigid Extremities exam: Present: other (Right lower tib-fib region there is noted hematoma, mild tenderness palpation no obvious deformity neurovascular intact no malleoli or tenderness no foot tenderness) Back exam: Present: full ROM. Absent: tenderness, paraspinal tenderness, vertebral tenderness Neurological exam: Present: alert, oriented X3, CN II-XII intact, reflexes normal. Absent: motor sensory deficit Course Vital Signs 08/18/24 12:33 Temperature 98.1 F Pulse Rate 67 Respiratory 18 Rate Blood Pressure 158/66 O2 Sat by Pulse 96 Oximetry Medical Decision Making - Medical Decision Making Was pt. sent in by a medical professional or institution (, PA, PACKAGING MACHINE SUPPLIES DISTRIBUTOR, urgent care, hospital, or shelter...) When possible be specific @ -No Did you speak to anyone other than the patient for history (EMS, parent, family, police, friend...)? What history was obtained from this source @ -No Did you review nursing and triage notes (agree or disagree)? Why? @ -I reviewed and agree with nursing and triage notes Were old charts reviewed (outside hosp., previous admission, EMS record, old EKG, old radiological studies, urgent care reports/EKG's, shelter records)? Report findings @ -No old charts were reviewed Differential Diagnosis (chest pain, altered mental status, abdominal pain women, abdominal pain men, vaginal bleeding, weakness, fever, dyspnea, syncope, headache, dizziness, GI bleed, back pain, seizure, CVA, palpatations, mental health, musculoskeletal)? @ -Differential Musculoskeletal Muscular strain, contusion, ligament sprain, fracture, arthritis, septic arthritis, bursitis, cellulitis, muscle spasm, nerve compression, DVT, arterial occlusion, herpes zoster, electrolyte abnormality, tumor.... This is not meant to be in all inclusive list EKG interpreted by me (3pts min.). @None X-rays interpreted by me (1pt min.). @ -X-ray right tib-fib showing soft tissue swelling no acute fracture CT interpreted by me (1pt min.). @ -None done U/S interpreted by me (1pt. min.). @ -None done What testing was considered but not performed or refused? (CT, X-rays, U/S, labs)? Why? @ -None What meds were considered but not given or refused? Why? @ -None Did you discuss the management of the patient with other professionals (professionals i.e. , PA, PACKAGING MACHINE SUPPLIES DISTRIBUTOR, lab, RT, psych nurse, social economist, nicker and breaker, teacher, fiscal officer, adult protective caseworker)? Give summary @ -No Was smoking cessation discussed for >3mins.? @ -No Was critical care preformed (if so, how long)? @ -No Were there social determinants of health that impacted care today? How? (Homelessness, low income, unemployed, alcoholism, drug addiction, transportation, low edu. Level, literacy, decrease access to med. care, [place] [facility], rehab)? @ -No Was there de-escalation of care discussed even if they declined (Discuss DNR or withdrawal of care, Hospice)? DNR status @ -No What co-morbidities impacted this encounter? (DM, HTN, Smoking, COPD, CAD, Cancer, CVA, ARF, Chemo, Hep., AIDS, mental health diagnosis, sleep apnea, morbid obesity)? @ -None Was patient admitted / discharged? Hospital course, mention meds given and route, prescriptions, significant lab abnormalities, going to OR and other pertinent info. @ -[Discharge x-rays are negative for acute fracture patient has a right leg hematoma discharge and in stable condition. Undiagnosed new problem with uncertain prognosis? @ -No Drug Therapy requiring intensive monitoring for toxicity (Heparin, Nitro, Insulin, Cardizem)? @ -No Were any procedures done? @ -No Diagnosis/symptom? @ -Right leg hematoma Acute, or Chronic, or Acute on Chronic? @ -Acute Uncomplicated (without systemic symptoms) or Complicated (systemic symptoms)? @ -Uncomplicated Side effects of treatment? @ -No Exacerbation, Progression, or Severe Exacerbation? @ -No Poses a threat to life or bodily function? How? (Chest pain, USA, MS, pneumonia, PE, COPD, DKA, ARF, appy, cholecystitis, CVA, Diverticulitis, Homicidal, Suicidal, threat to staff... and all critical care pts) @ -No Disposition Clinical Impression: Hematoma of right lower extremity Disposition: HOME SELF-CARE Condition: Stable Instructions (If sedation given, give patient instructions): Hematoma (ED) Additional Instructions: Please return to the Emergency Department if symptoms worsen or any other concerns. Is patient prescribed a controlled substance at d/c from ED?: No Referrals: Anthony Velasco MD [Primary Care Provider] - 1-2 days Time of Disposition: 13:17
[2024-08-18 13:30] VITALS: BP 161/69; PULSE 68
== END 2024-08-18 14:46 | disposition home or self-care (01) ==
LOC: EC 12:32
DX: S80.11XA Contusion of right lower leg, initial encounter (principal); Z88.1 Allergy status to other antibiotic agents; Z88.2 Allergy status to sulfonamides; Z88.6 Allergy status to analgesic agent; Z88.8 Allergy status to other drugs, medicaments and biological substances; W01.0XXA Fall on same level from slipping, tripping and stumbling without subsequent striking against object, initial encounter
CPT/HCPCS: 99284